=== PATIENT | female | born 1955 | race Caucasian/White ===

== ENCOUNTER → 2016-03-23 | Outpatient (CLI) | payer BC ==
[~2016-03-23] MED LIST: AKWA1OIN OP; ASPI325T PO; BACL10TA2 PO; DULO30CA PO; IMOD2TAB16 PO; LIDO1OIN2 TOP; MECL-68 PO; METF850T PO; MURO5OIN OU; NORT25CA2 PO; NORT50CA PO; PERC10TA17 PO; TOPA100T8 PO; TYLE325T5 PO; VALI5TAB PO; VITA200038 PO; VITMTA PO
[2016-03-23 15:07] LABS: ALBUMIN 3.5 GM/DL (3.2-5.2); ALBUMIN/GLOBULIN RATIO 0.92 (1.00-1.93); ALKALINE PHOSPHATASE 117 U/L (45-117); ALT/SGPT 18 U/L (12-78); ANION GAP 10 MEQ/L (8-16); AST/SGOT 14 U/L (15-37); BILIRUBIN,TOTAL 0.2 MG/DL (0.2-1.0); BLOOD UREA NITROGEN 22 MG/DL (7-18); CALCIUM LEVEL 9.2 MG/DL (8.5-10.1); CARBON DIOXIDE LEVEL 26 MEQ/L (21-32); CHLORIDE LEVEL 107 MEQ/L (98-107); CHOLESTEROL LEVEL 225 MG/DL (<200); GLOMERULAR FILTRATION RATE > 60.0 (>51); GLUCOSE, FASTING 96 MG/DL (70-105); POTASSIUM SERUM 4.1 MEQ/L (3.5-5.1); SODIUM LEVEL 143 MEQ/L (136-145); TOTAL PROTEIN 7.3 GM/DL (6.4-8.2); TRIGLYCERIDES LEVEL 165 MG/DL (<150)
== END | disposition home or self-care (01) ==
LOC: M LAB 13:50
PROVIDERS: ATTEND Nurse Practitioner Family
DX: I10 Essential (primary) hypertension (principal); E11.9 Type 2 diabetes mellitus without complications; E78.2 Mixed hyperlipidemia

== ENCOUNTER → 2016-06-02 | Outpatient (CLI) | payer BC ==
[2016-06-04 00:07] LABS: TOPIRAMATE LEVEL 9.7 ug/mL (2.0-25.0)
== END ==
LOC: M LAB 07:20
PROVIDERS: ATTEND Physician Assistant Medical
DX: G40.909 Epilepsy, unspecified, not intractable, without status epilepticus (principal)

== ENCOUNTER → 2016-06-24 | Outpatient (CLI) | payer BC ==
--- NOTE | 2016-06-25 03:23 | REP ---
Clinical: Right wrist pain. Technique: AP, lateral, bilateral oblique views of the right wrist. Findings: Age-related degenerative changes are appreciated. No acute fracture dislocation. No subcutaneous emphysema or radiodense foreign body. Impression: Age-related degenerative changes suggested. If the patient remains symptomatic, consider CT or MRI for further investigation. Signed by Mark Chicas MD 06/25/2016 03:15 A
[2016-06-26 00:07] LABS: TOPIRAMATE LEVEL 8.9 ug/mL (2.0-25.0)
== END ==
LOC: M LAB 07:50
PROVIDERS: ATTEND Physician Assistant Medical
DX: R51 Headache (principal); M25.531 Pain in right wrist; M19.031 Primary osteoarthritis, right wrist

== ENCOUNTER → 2016-07-22 | Outpatient (CLI) | payer BC ==
[2016-07-24 00:06] LABS: TOPIRAMATE LEVEL 7.9 ug/mL (2.0-25.0)
== END ==
LOC: M LAB 07:11
PROVIDERS: ATTEND Physician Assistant Medical
DX: R51 Headache (principal); M25.50 Pain in unspecified joint

== ENCOUNTER → 2016-07-27 | Outpatient (REF) | payer BC ==
[2016-07-27 11:48] LABS: ANION GAP 8 MEQ/L (8-16); BLOOD UREA NITROGEN 20 MG/DL (7-18); CALCIUM LEVEL 9.2 MG/DL (8.5-10.1); CARBON DIOXIDE LEVEL 24 MEQ/L (21-32); CHLORIDE LEVEL 111 MEQ/L (98-107); CREATININE FOR GFR 0.79 MG/DL (0.55-1.02); GLOMERULAR FILTRATION RATE > 60.0 (>51); GLUCOSE, FASTING 104 MG/DL (70-105); POTASSIUM SERUM 4.2 MEQ/L (3.5-5.1); SODIUM LEVEL 143 MEQ/L (136-145)
== END ==
LOC: M SFHCPLAZ 08:39
PROVIDERS: ATTEND Nurse Practitioner Family
DX: E11.9 Type 2 diabetes mellitus without complications (principal); E55.9 Vitamin D deficiency, unspecified

== ENCOUNTER → 2017-03-19 | Outpatient (REF) | payer BC ==
[2017-03-19 12:39] LABS: ALBUMIN 3.6 GM/DL (3.2-5.2); ALBUMIN/GLOBULIN RATIO 0.88 (1.00-1.93); ALKALINE PHOSPHATASE 110 U/L (45-117); ALT/SGPT 17 U/L (12-78); ANION GAP 9 MEQ/L (8-16); AST/SGOT 11 U/L (7-37); BILIRUBIN,TOTAL 0.2 MG/DL (0.2-1.0); BLOOD UREA NITROGEN 20 MG/DL (7-18); CALCIUM LEVEL 9.6 MG/DL (8.5-10.1); CARBON DIOXIDE LEVEL 27 MEQ/L (21-32); CHLORIDE LEVEL 107 MEQ/L (98-107); CHOLESTEROL LEVEL 220 MG/DL (<200); CREATININE FOR GFR 0.81 MG/DL (0.55-1.02); GLOMERULAR FILTRATION RATE > 60.0 (>51); GLUCOSE, FASTING 98 MG/DL (70-100); HDL CHOLESTEROL 83 MG/DL (>40); LDL CHOLESTEROL 117.4 MG/DL (<100); NON-HDL-C 137 MG/DL; POTASSIUM SERUM 4.2 MEQ/L (3.5-5.1); SODIUM LEVEL 143 MEQ/L (136-145); TOTAL PROTEIN 7.7 GM/DL (6.4-8.2); TRIGLYCERIDES LEVEL 98 MG/DL (<150)
[2017-03-19 12:48] LABS: TOTAL 25(OH) VITAMIN D 39.7 NG/ML (30.0-100.0)
[2017-03-19 13:05] LABS: ESTIMATED AVERAGE GLUCOSE 137 MG/DL (60-110); HEMOGLOBIN A1c 6.4 %
== END ==
LOC: M SFHCPLAZ 09:18
DX: E11.9 Type 2 diabetes mellitus without complications (principal); E78.2 Mixed hyperlipidemia; E55.9 Vitamin D deficiency, unspecified
CPT/HCPCS: 80053

== ENCOUNTER → 2017-05-28 | Outpatient (CLI) | payer BC ==
[2017-06-01 00:06] LABS: TOPIRAMATE LEVEL 8.7 ug/mL (2.0-25.0)
== END ==
LOC: M LAB 07:16
DX: R56.9 Unspecified convulsions (principal)

== ENCOUNTER → 2018-03-16 | Outpatient (REF) | payer OTHER ==
[~2018-03-16] MED LIST changes: -METF850T PO; +METF850T4 PO; -PERC10TA17 PO; +PERC10TA26 PO; +TOPA100T12 PO; -TOPA100T8 PO
[2018-03-16 12:43] LABS: MALB URINE SIEMENS 25.5 MG/L; MAU/CREAT RATIO 11.9 MCG/MG (0.0-30.0)
== END ==
LOC: M SFHCPLAZ 09:07
PROVIDERS: ATTEND Nurse Practitioner Family
DX: E11.9 Type 2 diabetes mellitus without complications (principal)

== ENCOUNTER 2018-05-04 22:12 | Emergency (ER) | payer OTHER ==
[~2018-05-04] VITALS: Ht 157.5 cm; Wt 258.0 kg
[2018-05-04 22:13] VITALS: BP 167/81
[2018-05-04] MEDS ORDERED: LIDOCAINE 2% MDV 20 ML VIAL SC ONE (23:30)
[2018-05-05] MEDS ORDERED: KEFL500C17 PO (00:24)
[2018-05-05] MEDS ORDERED: CEPHALEXIN 500 MG CAP PO ONE (00:30)
--- NOTE | 2018-05-05 02:29 | REP ---
Clinical: Trauma/fall with right knee pain. Technique: AP, lateral, bilateral oblique views of the right knee. Findings: Moderate tricompartmental osteoarthritic degenerative changes are appreciated. No acute fracture or dislocation. Lateral view demonstrates anterior swelling without obvious effusion. Impression: Moderate arthritic changes. No acute fracture or dislocation appreciated. Electronically Signed by Mark Chicas MD 05/05/2018 02:20 A
--- NOTE | 2018-05-05 02:31 | REP ---
Clinical: Trauma/fall. Technique: Frontal view of the pelvis with neutral and frog lateral views of the right hip. Findings: Moderate degenerative changes include enthesopathy along the pelvic rim. Hip joints demonstrate increased sclerosis with joint space narrowing and marginal spurring along the acetabulum (left greater than right). No obvious acute fracture or dislocation. Impression: Moderate arthritic degenerative changes. No acute fracture or dislocation identified. Electronically Signed by Mark Chicas MD 05/05/2018 02:22 A
== END 2018-05-05 00:43 | disposition home or self-care (01) ==
LOC: M ED 22:12
DX: S01.511A Laceration without foreign body of lip, initial encounter (principal); S70.01XA Contusion of right hip, initial encounter; S80.01XA Contusion of right knee, initial encounter; W19.XXXA Unspecified fall, initial encounter; Y92.099 Unspecified place in other non-institutional residence as the place of occurrence of the external cause; Y93.9 Activity, unspecified; Y99.9 Unspecified external cause status; M16.11 Unilateral primary osteoarthritis, right hip; M17.11 Unilateral primary osteoarthritis, right knee; I10 Essential (primary) hypertension; E11.9 Type 2 diabetes mellitus without complications; G89.29 Other chronic pain; Z87.891 Personal history of nicotine dependence; Z79.82 Long term (current) use of aspirin; Z79.899 Other long term (current) drug therapy; Z91.89 Other specified personal risk factors, not elsewhere classified; Z91.040 Latex allergy status

== ENCOUNTER → 2018-06-08 | Outpatient (CLI) | payer OTHER ==
[~2018-06-08] MED LIST changes: +ASPI-1 PO; -ASPI325T PO; -DULO30CA PO; +DULO30CA9 PO; +KEFL500C17 PO
[2018-06-08 14:27] LABS: BLOOD UREA NITROGEN 12 MG/DL (7-18); CARBON DIOXIDE LEVEL 26 MEQ/L (21-32); CHLORIDE LEVEL 108 MEQ/L (98-107); CREATININE FOR GFR 0.79 MG/DL (0.55-1.30); GLOMERULAR FILTRATION RATE > 60.0 (>45); GLUCOSE, FASTING 117 MG/DL (70-100); SODIUM LEVEL 140 MEQ/L (136-145)
[2018-06-08 14:30] LABS: HEMOGLOBIN A1c 6.2 %
== END ==
LOC: M LAB 12:53
PROVIDERS: ATTEND Nurse Practitioner Family
DX: E11.9 Type 2 diabetes mellitus without complications (principal); E55.9 Vitamin D deficiency, unspecified

== ENCOUNTER → 2018-09-15 | Outpatient (REF) | payer OTHER ==
[2018-09-15 13:05] LABS: BLOOD UREA NITROGEN 15 MG/DL (7-18); CALCIUM LEVEL 9.9 MG/DL (8.8-10.2); CARBON DIOXIDE LEVEL 27 MEQ/L (21-32); CHLORIDE LEVEL 109 MEQ/L (98-107); CREATININE FOR GFR 0.91 MG/DL (0.55-1.30); GLOMERULAR FILTRATION RATE > 60.0 (>45); GLUCOSE, FASTING 131 MG/DL (70-100); POTASSIUM SERUM 3.8 MEQ/L (3.5-5.1); SODIUM LEVEL 142 MEQ/L (136-145)
[2018-09-15 13:17] LABS: TOTAL 25(OH) VITAMIN D 40.2 NG/ML (30.0-100.0)
[2018-09-15 13:21] LABS: HEMOGLOBIN A1c 7.4 %
== END ==
LOC: M SFHCPLAZ 10:18
PROVIDERS: ATTEND Nurse Practitioner Family
DX: E11.9 Type 2 diabetes mellitus without complications (principal); E55.9 Vitamin D deficiency, unspecified

== ENCOUNTER → 2018-10-31 | Outpatient (CLI) | payer OTHER ==
--- NOTE | 2018-11-02 02:54 | ECWPNPC ---
PATIENT NAME: DEVIN AGUAYO : 1955 GENDER: FEMALE VISIT DATE: 10/31/2018 DISCHARGE DATE: 10/31/18 1154 VISIT LOCKED DATE TIME: PHYSICIAN: RABIA FERNANDEZ RESOURCE: RABIA FERNANDEZ DISCLAIMER : THIS IS A VISIT SUMMARY EXTRACTED FROM THE [facility] CHART. IT IS NOT A COPY OF THE [facility] PROGRESS NOTE. TITUS
== END ==
LOC: M PAIN 10:15
PROVIDERS: ATTEND Family Medicine
DX: M79.18 Myalgia, other site (principal); M79.7 Fibromyalgia; Z86.59 Personal history of other mental and behavioral disorders; R73.03 Prediabetes; E55.9 Vitamin D deficiency, unspecified; G47.33 Obstructive sleep apnea (adult) (pediatric); Z87.891 Personal history of nicotine dependence; Z88.8 Allergy status to other drugs, medicaments and biological substances; Z91.09 Other allergy status, other than to drugs and biological substances; E66.01 Morbid (severe) obesity due to excess calories; Z68.42 Body mass index [BMI] 45.0-49.9, adult; Z79.84 Long term (current) use of oral hypoglycemic drugs; Z79.82 Long term (current) use of aspirin; Z79.891 Long term (current) use of opiate analgesic; Z79.899 Other long term (current) drug therapy

== ENCOUNTER → 2018-11-15 | Outpatient (CLI) | payer OTHER ==
[~2018-11-15] MED LIST changes: +BUPIVACAINE HCL 0.25% 10 ML VIAL As Ordered ONE; +BUPIVACAINE HCL 0.25% 30 ML VIAL As Ordered ONE; +TRIAMCINOLONE ACETONIDE SUSP 40 MG/ML VIAL (J3301) As Ordered ONE
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
== END ==
LOC: M PAIN 14:15
PROVIDERS: ATTEND Anesthesiology
DX: M79.18 Myalgia, other site (principal); R56.9 Unspecified convulsions; F32.9 Major depressive disorder, single episode, unspecified; R73.03 Prediabetes; E55.9 Vitamin D deficiency, unspecified; E78.00 Pure hypercholesterolemia, unspecified; K57.90 Diverticulosis of intestine, part unspecified, without perforation or abscess without bleeding; I51.7 Cardiomegaly; R42 Dizziness and giddiness; G47.33 Obstructive sleep apnea (adult) (pediatric); M79.7 Fibromyalgia; Z62.810 Personal history of physical and sexual abuse in childhood; Z79.891 Long term (current) use of opiate analgesic; Z79.84 Long term (current) use of oral hypoglycemic drugs; Z79.899 Other long term (current) drug therapy; Z87.891 Personal history of nicotine dependence; Z88.8 Allergy status to other drugs, medicaments and biological substances; Z91.048 Other nonmedicinal substance allergy status
CPT/HCPCS: 20552; J3301

== ENCOUNTER → 2018-12-06 | Outpatient (CLI) | payer OTHER ==
[~2018-12-06] MED LIST changes: -BUPIVACAINE HCL 0.25% 10 ML VIAL As Ordered ONE; -BUPIVACAINE HCL 0.25% 30 ML VIAL As Ordered ONE; -TRIAMCINOLONE ACETONIDE SUSP 40 MG/ML VIAL (J3301) As Ordered ONE
== END ==
LOC: M PAIN 13:15
PROVIDERS: ATTEND Family Medicine
DX: M79.7 Fibromyalgia (principal); M79.18 Myalgia, other site; Z86.59 Personal history of other mental and behavioral disorders; E11.9 Type 2 diabetes mellitus without complications; E55.9 Vitamin D deficiency, unspecified; G47.33 Obstructive sleep apnea (adult) (pediatric); Z87.891 Personal history of nicotine dependence; Z88.8 Allergy status to other drugs, medicaments and biological substances; Z91.09 Other allergy status, other than to drugs and biological substances; E66.01 Morbid (severe) obesity due to excess calories; Z68.42 Body mass index [BMI] 45.0-49.9, adult; Z79.82 Long term (current) use of aspirin; Z79.84 Long term (current) use of oral hypoglycemic drugs; Z79.891 Long term (current) use of opiate analgesic; Z79.899 Other long term (current) drug therapy

== ENCOUNTER → 2019-01-09 | Outpatient (REF) | payer OTHER ==
[2019-01-09 15:00] LABS: FREE T4 0.75 NG/DL (0.76-1.46); THYROID STIMULATING HORMONE 2.46 uIU/ML (0.358-3.740)
[2019-01-09 16:53] LABS: HEMOGLOBIN A1c 6.7 %
== END ==
LOC: M SFHCPLAZ 11:35
PROVIDERS: ATTEND Physician Assistant Medical
DX: E11.9 Type 2 diabetes mellitus without complications (principal); Z68.42 Body mass index [BMI] 45.0-49.9, adult

== ENCOUNTER → 2019-01-17 | Outpatient (CLI) | payer OTHER ==
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
== END ==
LOC: M PAIN 11:30
PROVIDERS: ATTEND Family Medicine
DX: M79.7 Fibromyalgia (principal); G40.509 Epileptic seizures related to external causes, not intractable, without status epilepticus; Z86.59 Personal history of other mental and behavioral disorders; E11.9 Type 2 diabetes mellitus without complications; E55.9 Vitamin D deficiency, unspecified; G47.33 Obstructive sleep apnea (adult) (pediatric); I10 Essential (primary) hypertension; Z87.891 Personal history of nicotine dependence; Z88.8 Allergy status to other drugs, medicaments and biological substances; Z91.09 Other allergy status, other than to drugs and biological substances; E66.09 Other obesity due to excess calories; Z68.42 Body mass index [BMI] 45.0-49.9, adult; Z79.82 Long term (current) use of aspirin; Z79.84 Long term (current) use of oral hypoglycemic drugs; Z79.899 Other long term (current) drug therapy

== ENCOUNTER 2019-03-01 11:24 | Inpatient (IN) | payer OTHER ==
[~2019-03-01] VITALS: Ht 157.5 cm; Wt 126.2 kg
[2019-03-01] VITALS (10 sets, daily range): BP systolic 134–172; BP diastolic 61–90
[2019-03-01] MEDS ORDERED: GABA-843 PO (11:50)
[2019-03-01] MEDS ORDERED: BAYE500T2 PO (11:50)
[2019-03-01 12:12] LABS: BASO % 0.4 % (0.0-1.0); EOS # 0.3 10^3/uL (0.0-0.5); EOS % 3.6 % (0.0-3.0); HEMATOCRIT 35.7 % (36.0-47.0); HEMOGLOBIN 10.4 g/dl (12.0-15.5); LYMPH # 2.2 10^3/uL (1.5-5.0); LYMPH % 23.3 % (24.0-44.0); MEAN CORPUSCULAR HGB CONC 29.1 g/dl (32.0-36.5); MEAN CORPUSCULAR VOLUME 85.8 fl (80.0-96.0); MONO # 0.9 10^3/uL (0.0-0.8); MONO % 9.6 % (0.0-5.0); NEUTROPHILS # 5.9 10^3/uL (1.5-8.5); NEUTROPHILS % 62.4 % (36.0-66.0); PLATELET COUNT, AUTOMATED 342 10^3/uL (150-450); RED BLOOD COUNT 4.16 10^6/uL (4.00-5.40); WHITE BLOOD COUNT 9.4 10^3/uL (4.0-10.0)
--- NOTE | 2019-03-01 12:23 | REP ---
Portable chest x-ray: Single view. History: Chest pain. Comparison chest x-ray: January 08, 2010. Findings: EKG monitoring electrodes are seen. The heart is mildly prominent but unchanged. Pulmonary vasculature is not increased. Pleural angles are sharp. No infiltrate is seen. Thoracic aorta somewhat tortuous. There are degenerative changes in the thoracic spine. Impression: Mildly prominent heart. Otherwise no acute disease. Electronically Signed by Reji Saravia MD 03/01/2019 12:15 P
[2019-03-01 12:24] LABS: INR 0.96; PROTHROMBIN TIME 12.4 SECONDS (11.8-14.0)
[2019-03-01 12:38] LABS: ALBUMIN 3.2 GM/DL (3.2-5.2); ALT/SGPT 20 U/L (12-78); BILIRUBIN,DIRECT < 0.1 MG/DL (0.0-0.2); BILIRUBIN,TOTAL 0.1 MG/DL (0.2-1.0); CK-MB VALUE MASS < 1.0 NG/ML (<3.6); CPK CREATINE PHOSPHOKINASE 82 U/L (26-192); LIPASE 119 U/L (73-393); MB/CK RELATIVE INDEX 1.22 (< OR =4); TOTAL PROTEIN 7.1 GM/DL (6.4-8.2); TROPONIN I < 0.02 NG/ML (< 0.10)
[2019-03-01] MEDS ORDERED: ISOVUE-370 76% 100ML VIAL (Q9967) As Ordered ONE (13:04)
[2019-03-01 13:09] LABS: FREE T4 0.81 NG/DL (0.76-1.46); MAGNESIUM LEVEL 2.2 MG/DL (1.8-2.4); PHOSPHORUS LEVEL 3.4 MG/DL (2.5-4.9)
--- NOTE | 2019-03-01 14:25 | REP ---
CT PULMONARY ANGIOGRAM: With IV contrast. HISTORY: Chest pain shortness of breath. COMPARISON STUDIES: Comparison chest CT study January 08, 2010. CONTRAST DOSE: 75 mL of Isovue [address] TECHNIQUE: Helical scanning is acquired and overlapping 1.5 mm and contiguous 3 mm axial images are reformatted. In addition, maximum intensity projection and multiplanar re-formation images are generated in sagittal and coronal imaging projections. CT PULMONARY ANGIOGRAPHIC FINDINGS: There is good opacification of the pulmonary arterial tree. There is no CT evidence of pulmonary embolism. No thoracic aortic aneurysm or dissection is appreciated. No hilar or mediastinal mass lesion is seen. There is a stable oval shaped fluid density nodule in the mediastinal fat just anterior to the superior vena cava consistent with pericardial cyst. This measures 2.3 x 1.6 cm. Previously its dimensions by my measurements were 2.3 x 1.4 cm. It is not felt to be significantly changed. No other mediastinal abnormality is observed. No pleural or pericardial effusion is seen. The lung bowling are clear. There is evidence of mild fatty infiltration of the liver diffusely. No adrenal abnormality is observed. There is a stable celiac axis lymph node measuring 11 x 16 mm. Previously, this was 9 x 15 mm. IMPRESSION: No CT evidence of pulmonary embolus. Stable pericardial cyst in the right mediastinum 2.3 cm in greatest diameter. Otherwise no acute disease. Electronically Signed by Reji Saravia MD 03/01/2019 04:42 P
[2019-03-01] MEDS ORDERED: LABETALOL HCL 100 MG/20 ML VIAL IV STA (16:08)
[2019-03-01] MEDS ORDERED: niCARdipine IV 40 MG in IV 1 EA IV SCH (16:30)
--- NOTE | 2019-03-01 16:40 | HPEPDOC ---
General Date of Admission Date of Service: Mar 01, 2019 Attending Physician: DESMOND RAZO MD Chief Complaint chest pain Source: Patient Exam Limitations: No limitations History of Present Illness 63 year old female PMHx significant for DM2, fibromyalgia, morbid obesity, depression, chronic back pain presents with chest pain. States had an episode of "heart racing" on February 25, is not exactly clear what happened but remembers "feeling my heart race and then it stopped". Since then has had episodes of chest pain, midsternal, radiating into her back and into her neck. Associated with shortness of breath and diaphoresis. Symptoms last for a few minutes, takes asa when they occur, and spontaneously resolve. Called her PCP and was advised to come to the ED for evaluation. Presents here with BP 190/115, currently 230/94, started on Cardene drip in ED, MICU admission for further management. Patient is currently chest pain free. Home Medications Scheduled Aspirin/Caffeine (Junior Back-Body 500-32.5 mg) 1 Each Tablet, 2 EACH PO QAM, (Reported) Cholecalciferol (Vitamin D3) (Vitamin D3) 2,000 Unit Tab, 5,000 UNIT PO DAILY, (Reported) Duloxetine Hcl (Duloxetine HCl) 30 Mg Cap, 30 MG PO BID, (Reported) Gabapentin (Gabapentin) 300 Mg Capsule, 300 MG PO BID, (Reported) Metformin HCl (Metformin HCl) 850 Mg Tab, 850 MG PO BID, (Reported) Mineral Oil/Petrolatum,White (Artificial Tears Eye Ointment) 1 Oin Oin, 1 OIN OP QHS, (Reported) Multivitamins (Thera M Plus Tablet) 1 Tab Tab, 1 TAB PO DAILY, (Reported) Nortriptyline HCl (Nortriptyline HCl) 25 Mg Cap, 25 MG PO QPM, (Reported) Sodium Chloride ([place]antana-128) 5 % Oin, 1 DROP OU BID, (Reported) Topiramate (Topamax) 100 Mg Tab, 100 MG PO QAM, (Reported) Topiramate (Topamax) 100 Mg Tab, 150 MG PO QPM, (Reported) Scheduled PRN Acetaminophen (Tylenol) 325 Mg Tab, 650 MG PO Q4HP PRN for PAIN, (Reported) Baclofen (Baclofen) 10 Mg Tab, 10 MG PO TID PRN for SPASMS, (Reported) Diazepam (Valium) 5 Mg Tab, 2.5 MG PO BIDP PRN for ANXIETY/AGITATION, (Reported) Lidocaine (Lidocaine 5% Ointment) 1 Dose/35.44 Gm Oint, 1 DOSE TOP Q12H PRN for PAIN, (Reported) APPLIED TO NECK Loperamide Hcl (Imodium A-D) 2 Mg Tab, 2 MG PO BID PRN for DIARRHEA, (Reported) Allergies Coded Allergies: TAPE (Unverified Allergy, Intermediate, RASH, 03/01/19) latex (Verified Allergy, Unknown, 03/01/19) nicotine (Verified Allergy, Unknown, 03/01/19) soap (Verified Allergy, Unknown, 03/01/19) Past Medical History Medical History DM2, fibromyalgia, morbid obesity, depression, chronic back pain Surgical History b/l knee replacements Family History Significant Family History: No pertinent family hx Social History * Smoker: quit greater than 1 year Alcohol: Denies Drugs: denies A-FIB/CHADSVASC A-FIB History Current/History of A-Fib/PAF?: No Current PO Anticoag Therapy: No Review of Systems Constitutional: Reports: Weakness, Fatigue Cardiovascular: Reports: Chest Pain (resolved) Vital Signs Vital Signs Date Time Temp Pulse Resp B/P (MAP) Pulse Ox O2 Delivery O2 Flow Rate FiO2 03/01/19 16:13 198/108 (138) 03/01/19 12:39 99 03/01/19 12:24 98 03/01/19 11:50 Room Air 03/01/19 11:25 97.2 17 Laboratory Data Labs 24H Laboratory Tests 2 03/01/19 11:59: Prothrombin Time 12.4, Prothromb Time International Ratio 0.96 03/01/19 12:00: Immature Granulocyte % (Auto) 0.7, Neutrophils (%) (Auto) 62.4, Lymphocytes (%) (Auto) 23.3L, Monocytes (%) (Auto) 9.6H, Eosinophils (%) (Auto) 3.6H, Basophils (%) (Auto) 0.4, Neutrophils # (Auto) 5.9, Lymphocytes # (Auto) 2.2, Monocytes # (Auto) 0.9H, Eosinophils # (Auto) 0.3, Basophils # (Auto) 0.0, Nucleated Red Blood Cells % (auto) 0.0, Phosphorus Level 3.4, Magnesium Level 2.2, Total Bilirubin 0.1L, Direct Bilirubin < 0.1, Aspartate Amino Transf (AST/SGOT) 17, Alanine Aminotransferase (ALT/SGPT) 20, Alkaline Phosphatase 108, Total Creatine Kinase 82, Creatine Kinase MB < 1.0, Creatine Kinase MB Relative Index 1.22, Troponin I < 0.02, Total Protein 7.1, Albumin 3.2, Albumin/Globulin Ratio 0.82L, Lipase 119, Thyroid Stimulating Hormone (TSH) 2.970, Free Thyroxine 0.81 03/01/19 12:34: POC Glucose (Misc Panel) 119H, POC Sodium (Misc Panel) 140, POC Potassium (Misc Panel) 4.4, POC Chloride (Misc Panel) 107, POC Total CO2 (Misc Panel) 25.0, POC Blood Urea Nitrogen (Misc Panel 22, POC Ionized Calcium (Misc Panel) 5.0, POC Creatinine (Misc Panel) 0.8, POC Hematocrit (Misc Panel) 32.0L CBC/BMP Laboratory Tests 03/01/19 12:00 Assessment/Plan 1. hypertensive urgency - started on Cardene drip in ED. - admit to MICU. - BP checks, titrate to goal BP. - cardiac ECHO, serial enzymes. - consult to cardiology. - no prior history of HTN per patient. 2. chest pain - serial cardiac markers, telemetry monitoring. - cardiac echo, asa. - consult to cardiology. 3. DM2 - FSBS, SSI coverage. Plan / VTE VTE Prophylaxis Ordered?: Yes DESMOND RAZO MD Mar 01, 2019 16:40
[2019-03-01] MEDS ORDERED: MOM 30ML SUSPENSION UDC PO PRN (16:45)
[2019-03-01] MEDS ORDERED: DEXTROSE 50% 50 ML SYRINGE IV PRN (16:45)
[2019-03-01] MEDS ORDERED: GLUCOSE 4 GM CHEW TABLET PO PRN (16:45)
[2019-03-01] MEDS ORDERED: GLUCAGON FOR INJ 1 MG VIAL (J1610) SC PRN (16:45)
[2019-03-01] MEDS ORDERED: VITA500079 PO (17:01)
[2019-03-01] MEDS ORDERED: FLON1SPR NARES (17:01)
[2019-03-01] MEDS ORDERED: PATIENT COMMENT (17:01)
[2019-03-01] MEDS ORDERED: SM A PO (17:01)
[2019-03-01] MEDS ORDERED: BACL10TA2 PO (17:01)
[2019-03-01] MEDS ORDERED: NORT25CA2 PO (17:01)
[2019-03-01] MEDS ORDERED: OXYC10TA3 PO (17:03)
[2019-03-01] MEDS: HumaLOG INSULIN (NovoLOG) PER UNIT SC SCH (17:30)
[2019-03-01] MEDS: METOPROLOL TART 25 MG TABLET PO SCH (18:10)
--- NOTE | 2019-03-01 18:15 | ECGEPIP ---
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
[2019-03-01 18:37] LABS: CK-MB VALUE MASS < 1.0 NG/ML (<3.6); CPK CREATINE PHOSPHOKINASE 72 U/L (26-192); MB/CK RELATIVE INDEX 1.39 (< OR =4); TROPONIN I < 0.02 NG/ML (< 0.10)
[2019-03-01] MEDS: DOCUSATE SODIUM 100 MG CAP PO SCH (20:40)
[2019-03-01] MEDS: ASPIRIN 325 MG TAB PO PRN (20:57)
--- NOTE | 2019-03-01 21:52 | ECHO ---
DATE OF PROCEDURE: 03/01/2019 REFERRING PHYSICIAN: Emilee Smith MD INDICATION: Chest pain, unspecified. HEIGHT: 158 cm WEIGHT: 124 kg 2D MEASUREMENTS: Left atrium: 3.4 cm Proximal ascending aorta: 3.1 cm Ventricular septum: 1.15 cm Posterior wall: 1.30 cm Left ventricle diastole: 3.9 cm Aortic root: 3.2 cm Inferior vena cava: 1.2 cm DOPPLER MEASUREMENTS: No aortic regurgitation. No mitral regurgitation. Trace tricuspid regurgitation. No pulmonic regurgitation. Aortic valve velocity: 140 cm/s LVOT velocity: 75.0 cm/s Pulmonary artery acceleration time: 124 ms MITRAL ANNULAR TISSUE DOPPLER: E prime septal: 5.9 cm/s E prime lateral: 7.4 cm/s DESCRIPTION: Rhythm was sinus tachycardia. Image quality was fair. This was a 2D, M-mode, color flow Doppler and pulse wave Doppler examination that included mitral annular tissue Doppler. CONCLUSIONS: 1. Borderline concentric left ventricle hypertrophy. Normal regional LV wall motion and wall thickening. Normal left ventricle (LV) systolic function. Grade 1 LV diastolic dysfunction with complete fusion of the early rapid filling phase with the atrial filling phase at 104 beats per minute. Grade 1 LV diastolic dysfunction. 2. No pericardial effusion. 3. Otherwise normal appearing echocardiogram Doppler findings.
[2019-03-01] MEDS ORDERED: diazePAM 5 MG TAB PO PRN (23:00)
[2019-03-01] MEDS ORDERED: BACLOFEN 10 MG TAB PO PRN (23:00)
[2019-03-01] MEDS ORDERED: PILL CUTTER 1 EACH XX PRN (23:15)
[2019-03-01] MEDS: BACLOFEN 10 MG TAB PO SCH (23:41)
[2019-03-01] MEDS: TOPIRAMATE (TopAMAX) 100 MG TAB PO SCH (23:41)
[2019-03-01] MEDS: GABAPENTIN 300 MG CAP PO SCH (23:41)
[2019-03-02] VITALS (7 sets, daily range): BP systolic 132–193; BP diastolic 67–100
[2019-03-02] MEDS: ASPIRIN 325 MG TAB PO PRN (03:56)
[2019-03-02 07:33] LABS: ALBUMIN 3.1 GM/DL (3.2-5.2); ALT/SGPT 20 U/L (12-78); BILIRUBIN,TOTAL 0.4 MG/DL (0.2-1.0); BLOOD UREA NITROGEN 15 MG/DL (7-18); CALCIUM LEVEL 9.1 MG/DL (8.8-10.2); CARBON DIOXIDE LEVEL 22 MEQ/L (21-32); CHLORIDE LEVEL 109 MEQ/L (98-107); CREATININE FOR GFR 0.82 MG/DL (0.55-1.30); GLOMERULAR FILTRATION RATE > 60.0 (>45); GLUCOSE, FASTING 143 MG/DL (70-100); SODIUM LEVEL 139 MEQ/L (136-145); TOTAL PROTEIN 7.4 GM/DL (6.4-8.2)
[2019-03-02] MEDS: ASPIRIN 81 MG ENTERIC TAB PO SCH (08:11)
[2019-03-02] MEDS: GABAPENTIN 300 MG CAP PO SCH ×2 (08:11→20:48)
[2019-03-02] MEDS: METOPROLOL TART 25 MG TABLET PO SCH ×2 (08:11→20:48)
[2019-03-02] MEDS: HumaLOG INSULIN (NovoLOG) PER UNIT SC SCH ×3 (08:12→17:31)
[2019-03-02] MEDS: TOPIRAMATE (TopAMAX) 100 MG TAB PO SCH ×2 (08:12→20:48)
[2019-03-02] MEDS: BACLOFEN 10 MG TAB PO SCH ×2 (08:12→20:48)
[2019-03-02] MEDS: DOCUSATE SODIUM 100 MG CAP PO SCH ×2 (08:12→20:48)
[2019-03-02] MEDS: ENOXAPARIN 40 MG/0.4 ML SYRINGE (J1650) SC SCH (09:00)
--- NOTE | 2019-03-02 09:27 | IPNPDOC ---
Subjective Date Seen The patient was seen on 03/02/19. Subjective Chief Complaint/HPI chest pain, hypertensive urgency Events since last encounter Admitted for concerns about recent CP, palpitations. States on 02/25/2019 developed sudden onset chest and what felt like Vtach. States felt an out of body experience and something telling her to bear down and thump on chest. States came to suddenly and felt fine. Has been experiencing fleeting intermittent CP and heat palp since then. She called PCP office and was directed to ED which found patient to have elevated BP in 230 range systolic. BP came down on Cardene drip which has been tapered off. Current orders include Metoprolol 25 mg po bid. BP this am 170s systolic. Pulmonary: Denies: Dyspnea, Cough Cardiovascular: Denies: Chest Pain, Palpitations, Orthopnea, Paroxysmal Noc. Dyspnea, Lt Headedness Psych: Reports: Mood Normal; Denies: Depression, Memory Issues Objective Physical Examination General Exam: Positive: Alert, No Acute Distress Chest Exam: Positive: Clear to auscultation, Normal air movement Heart Exam: Positive: Rate Normal, Regular Rhythm, Normal S1, Normal S2; Negative: Murmurs, Rubs Telemetry: Positive: No significant arrhythmia Psych Exam: Positive: Mental status NL, Mood NL, Oriented x 3 Assessment /Plan Problems (1) Hypertensive urgency Status: Acute Problem Text: continue metoprolol. Added on Lisinopril 10 mg po daily as patient is diabetic and would benefit from PATRICIO. renal function is table. ECHO: CONCLUSIONS: 1. Borderline concentric left ventricle hypertrophy. Normal regional LV wall motion and wall thickening. Normal left ventricle (LV) systolic function. Grade 1 LV diastolic dysfunction with complete fusion of the early rapid filling phase with the atrial filling phase at 104 beats per minute. Grade 1 LV diastolic dysfunction. 2. No pericardial effusion. 3. Otherwise normal appearing echocardiogram Doppler findings. DD: Gage Melendez MD [facility] 03/01/192123 DT: URSULA 03/01/192142 DS: ANGELA 03/01/192320 <Electronically signed by aGge Melendez MD> 03/01/192320 DS2: (2) Chest pain Status: Acute Response to Treatment: Improving Problem Text: monitor on telemetry 24-48 hrs. Will need close fu with stress testing on DC (3) Depression Status: Chronic Response to Treatment: Stable (4) Diabetes mellitus Status: Chronic Response to Treatment: Stable (5) Chronic pain (6) Dissociative disorder Status: Chronic Response to Treatment: Stable Plan/VTE VTE Prophylaxis Ordered?: Yes VS, I&O, 24H, Fishbone Vital Signs/I&O Vital Signs Date Time Temp Pulse Resp B/P (MAP) Pulse Ox O2 Delivery O2 Flow Rate FiO2 03/02/19 08:11 80 176/90 03/02/19 07:47 98.0 20 95 Room Air I&O- Last 24 Hours up to 6 AM 03/02/19 06:00 Intake Total 740 ml Output Total 200 ml Balance 540 ml Laboratory Data 24H LABS Laboratory Tests 2 03/01/19 11:59: Prothrombin Time 12.4, Prothromb Time International Ratio 0.96 03/01/19 12:00: Immature Granulocyte % (Auto) 0.7, Neutrophils (%) (Auto) 62.4, Lymphocytes (%) (Auto) 23.3L, Monocytes (%) (Auto) 9.6H, Eosinophils (%) (Auto) 3.6H, Basophils (%) (Auto) 0.4, Neutrophils # (Auto) 5.9, Lymphocytes # (Auto) 2.2, Monocytes # (Auto) 0.9H, Eosinophils # (Auto) 0.3, Basophils # (Auto) 0.0, Nucleated Red Blood Cells % (auto) 0.0, Phosphorus Level 3.4, Magnesium Level 2.2, Total Bilirubin 0.1L, Direct Bilirubin < 0.1, Aspartate Amino Transf (AST/SGOT) 17, Alanine Aminotransferase (ALT/SGPT) 20, Alkaline Phosphatase 108, Total Creatine Kinase 82, Creatine Kinase MB < 1.0, Creatine Kinase MB Relative Index 1.22, Troponin I < 0.02, Total Protein 7.1, Albumin 3.2, Albumin/Globulin Ratio 0.82L, Lipase 119, Thyroid Stimulating Hormone (TSH) 2.970, Free Thyroxine 0.81 03/01/19 12:34: POC Glucose (Misc Panel) 119H, POC Sodium (Misc Panel) 140, POC Potassium (Misc Panel) 4.4, POC Chloride (Misc Panel) 107, POC Total CO2 (Misc Panel) 25.0, POC Blood Urea Nitrogen (Misc Panel 22, POC Ionized Calcium (Misc Panel) 5.0, POC Creatinine (Misc Panel) 0.8, POC Hematocrit (Misc Panel) 32.0L 03/01/19 17:58: Total Creatine Kinase 72, Creatine Kinase MB < 1.0, Creatine Kinase MB Relative Index 1.39, Troponin I < 0.02 03/01/19 18:05: Bedside Glucose (Misc Panel) 143H 03/02/19 06:50: Anion Gap 8, Glomerular Filtration Rate > 60.0, Calcium Level 9.1, Total Bilirubin 0.4#, Aspartate Amino Transf (AST/SGOT) 22, Alanine Aminotransferase (ALT/SGPT) 20, Alkaline Phosphatase 103, Total Protein 7.4, Albumin 3.1L, Albumin/Globulin Ratio 0.72L CBC/BMP Laboratory Tests 03/01/19 12:00 03/02/19 06:50 Nisreen Faith [employer] Mar 02, 2019 09:27
[2019-03-02] MEDS: lisinopriL 10 MG TAB PO SCH (10:01)
[2019-03-02] MEDS ORDERED: ASPIRIN 325 MG TAB PO PRN (15:30)
[2019-03-02] MEDS: PERCOCET 5MG/325MG TAB PO PRN (15:41)
[2019-03-03 04:00] VITALS: BP 150/90
[2019-03-03 05:07] LABS: BASO % 0.4 % (0.0-1.0); EOS # 0.4 10^3/uL (0.0-0.5); HEMATOCRIT 35.5 % (36.0-47.0); HEMOGLOBIN 10.5 g/dl (12.0-15.5); LYMPH # 1.9 10^3/uL (1.5-5.0); LYMPH % 18.8 % (24.0-44.0); MEAN CORPUSCULAR HEMOGLOBIN 25.4 pg (27.0-33.0); MEAN CORPUSCULAR HGB CONC 29.6 g/dl (32.0-36.5); MONO % 9.9 % (0.0-5.0); NEUTROPHILS # 6.7 10^3/uL (1.5-8.5); NEUTROPHILS % 66.5 % (36.0-66.0); PLATELET COUNT, AUTOMATED 345 10^3/uL (150-450); RED BLOOD COUNT 4.13 10^6/uL (4.00-5.40); WHITE BLOOD COUNT 10.1 10^3/uL (4.0-10.0)
[2019-03-03 05:36] LABS: ALBUMIN 3.2 GM/DL (3.2-5.2); ALT/SGPT 22 U/L (12-78); BILIRUBIN,TOTAL 0.3 MG/DL (0.2-1.0); BLOOD UREA NITROGEN 21 MG/DL (7-18); CALCIUM LEVEL 8.9 MG/DL (8.8-10.2); CARBON DIOXIDE LEVEL 24 MEQ/L (21-32); CHLORIDE LEVEL 109 MEQ/L (98-107); CREATININE FOR GFR 0.91 MG/DL (0.55-1.30); GLOMERULAR FILTRATION RATE > 60.0 (>45); GLUCOSE, FASTING 137 MG/DL (70-100); SODIUM LEVEL 140 MEQ/L (136-145); TOTAL PROTEIN 7.5 GM/DL (6.4-8.2)
[2019-03-03 08:00] VITALS: BP 167/87
[2019-03-03] MEDS: HumaLOG INSULIN (NovoLOG) PER UNIT SC SCH ×3 (08:15→17:31)
[2019-03-03] MEDS: GABAPENTIN 300 MG CAP PO SCH ×2 (08:15→21:22)
[2019-03-03] MEDS: lisinopriL 10 MG TAB PO SCH (08:16)
[2019-03-03] MEDS: BACLOFEN 10 MG TAB PO SCH ×2 (08:16→21:22)
[2019-03-03] MEDS: ASPIRIN 81 MG ENTERIC TAB PO SCH (08:16)
[2019-03-03] MEDS: METOPROLOL TART 25 MG TABLET PO SCH ×2 (08:16→21:22)
[2019-03-03] MEDS: TOPIRAMATE (TopAMAX) 100 MG TAB PO SCH ×2 (08:16→21:23)
[2019-03-03] MEDS: DOCUSATE SODIUM 100 MG CAP PO SCH ×2 (08:17→21:00)
[2019-03-03] MEDS: ENOXAPARIN 40 MG/0.4 ML SYRINGE (J1650) SC SCH (08:17)
--- NOTE | 2019-03-03 08:29 | IPNPDOC ---
Subjective Date Seen The patient was seen on 03/03/19. Subjective Chief Complaint/HPI No chest pain,palpitations. Tolerating Lisinopril and Lopressor without side effects. Constitutional: Denies: Chills, Fever Pulmonary: Denies: Dyspnea, Cough Cardiovascular: Denies: Chest Pain, Palpitations Gastrointestinal: Denies: Nausea, Vomiting, Abdominal Pain, Diarrhea, Constipation Objective Physical Examination General Exam: Positive: Alert, No Acute Distress Chest Exam: Positive: Clear to auscultation, Normal air movement; Negative: Rales, Rhonchi, Wheezing Heart Exam: Positive: Rate Normal, Regular Rhythm, Normal S1, Normal S2; Negative: Murmurs, Rubs Telemetry: Positive: No significant arrhythmia, Sinus Psych Exam: Positive: Mental status NL, Mood NL, Oriented x 3 Assessment /Plan Problems (1) Hypertensive urgency Status: Acute Problem Text: 03/04 - BP remains variable but overall improved. Increase Lisino pril today and cont Lopressor. Get Renal Artery US to r/o renal a. stenosis Will need f/u with cardiology due to recent complaints of intermittent CP leading up to this admission as well as an event that she describes where her HR was racing (? Vtach vs other) No events on tele and cardiac enzymes normal, but will need outpatient stress test. . ECHO: CONCLUSIONS: 1. Borderline concentric left ventricle hypertrophy. Normal regional LV wall motion and wall thickening. Normal left ventricle (LV) systolic function. Grade 1 LV diastolic dysfunction with complete fusion of the early rapid filling phase with the atrial filling phase at 104 beats per minute. Grade 1 LV diastolic dysfunction. 2. No pericardial effusion. 3. Otherwise normal appearing echocardiogram Doppler findings. DD: Gage Melendez MD [facility] 03/01/192123 DT: URSULA 03/01/192142 DS: ANGELA 03/01/192320 <Electronically signed by Gage Melendez MD> 03/01/192320 DS2: (2) Chest pain Status: Acute Response to Treatment: Improving Problem Text: monitor on telemetry 24-48 hrs. Will need close fu with stress testing on DC (3) Depression Status: Chronic Response to Treatment: Stable (4) Diabetes mellitus Status: Chronic Response to Treatment: Stable (5) Chronic pain (6) Dissociative disorder Status: Chronic Response to Treatment: Stable Plan/VTE VTE Prophylaxis Ordered?: Yes VS, I&O, 24H, Fishbone Vital Signs/I&O Vital Signs Date Time Temp Pulse Resp B/P (MAP) Pulse Ox O2 Delivery O2 Flow Rate FiO2 03/03/19 04:00 97.8 105 20 150/90 (110) 97 Room Air I&O- Last 24 Hours up to 6 AM 03/03/19 06:00 Intake Total 3130 ml Output Total 2750 ml Balance 380 ml Laboratory Data 24H LABS Laboratory Tests 2 03/02/19 11:34: Bedside Glucose (Misc Panel) 137H 03/02/19 17:16: Bedside Glucose (Misc Panel) 136H 03/02/19 19:44: Bedside Glucose (Misc Panel) 142H 03/03/19 04:44: Immature Granulocyte % (Auto) 0.4, Neutrophils (%) (Auto) 66.5H, Lymphocytes (%) (Auto) 18.8L, Monocytes (%) (Auto) 9.9H, Eosinophils (%) (Auto) 4.0H, Basophils (%) (Auto) 0.4, Neutrophils # (Auto) 6.7, Lymphocytes # (Auto) 1.9, Monocytes # (Auto) 1.0H, Eosinophils # (Auto) 0.4, Basophils # (Auto) 0.0, Nucleated Red Blood Cells % (auto) 0.0, Anion Gap 7L, Glomerular Filtration Rate > 60.0, Calcium Level 8.9, Total Bilirubin 0.3, Aspartate Amino Transf (AST/SGOT) 22, Alanine Aminotransferase (ALT/SGPT) 22, Alkaline Phosphatase 101, Total Protein 7.5, Albumin 3.2, Albumin/Globulin Ratio 0.74L CBC/BMP Laboratory Tests 03/03/19 04:44 ORION RAMOS PA-C Mar 03, 2019 08:29
[2019-03-03] MEDS ORDERED: lisinopriL 10 MG TAB PO ONE (09:15)
[2019-03-03] MEDS: PERCOCET 5MG/325MG TAB PO PRN ×2 (10:31→23:48)
[2019-03-03 12:00] VITALS: BP 155/75
[2019-03-03 16:00] VITALS: BP 130/83
[2019-03-03 20:00] VITALS: BP 120/72
[2019-03-04] VITALS: BP 140/80
[2019-03-04 04:00] VITALS: BP 150/90
[2019-03-04 05:35] LABS: BLOOD UREA NITROGEN 18 MG/DL (7-18); CALCIUM LEVEL 8.9 MG/DL (8.8-10.2); CARBON DIOXIDE LEVEL 24 MEQ/L (21-32); CHLORIDE LEVEL 109 MEQ/L (98-107); CREATININE FOR GFR 0.81 MG/DL (0.55-1.30); GLOMERULAR FILTRATION RATE > 60.0 (>45); GLUCOSE, FASTING 150 MG/DL (70-100); POTASSIUM SERUM 3.9 MEQ/L (3.5-5.1); SODIUM LEVEL 140 MEQ/L (136-145)
[2019-03-04] MEDS: DOCUSATE SODIUM 100 MG CAP PO SCH (07:29)
[2019-03-04] MEDS: ENOXAPARIN 40 MG/0.4 ML SYRINGE (J1650) SC SCH (07:29)
[2019-03-04 08:00] VITALS: BP 144/82
[2019-03-04] MEDS ORDERED: lisinopriL 20 MG TAB PO SCH (09:00)
[2019-03-04] MEDS: HumaLOG INSULIN (NovoLOG) PER UNIT SC SCH ×2 (09:42→12:47)
[2019-03-04] MEDS: GABAPENTIN 300 MG CAP PO SCH (11:16)
[2019-03-04] MEDS: METOPROLOL TART 25 MG TABLET PO SCH (11:16)
[2019-03-04 11:17] VITALS: BP 144/82
[2019-03-04] MEDS: BACLOFEN 10 MG TAB PO SCH (11:17)
[2019-03-04] MEDS: ASPIRIN 81 MG ENTERIC TAB PO SCH (11:17)
[2019-03-04] MEDS: TOPIRAMATE (TopAMAX) 100 MG TAB PO SCH (11:17)
[2019-03-04 12:00] VITALS: BP 138/94
--- NOTE | 2019-03-04 13:09 | DS.PDOC ---
Discharge Summary General Date of Admission Mar 01, 2019 at 16:40 Discharge Summary PROCEDURES PERFORMED DURING STAY: [None]. ADMITTING DIAGNOSES: 1. . DISCHARGE DIAGNOSES: 1. . COMPLICATIONS/CHIEF COMPLAINT: Hypertensive Urgency. HISTORY OF PRESENT ILLNESS: . HOSPITAL COURSE: . DISCHARGE MEDICATIONS: Please see below. ALLERGIES: Please see below. PHYSICAL EXAMINATION ON DISCHARGE: VITAL SIGNS: Please see below. GENERAL: HEENT: NECK: CARDIOVASCULAR EXAMINATION: RESPIRATORY EXAMINATION: ABDOMINAL EXAMINATION: EXTREMITIES: SKIN: NEUROLOGICAL EXAMINATION: PSYCHIATRIC EXAMINATION: LABORATORY DATA: Please see below. IMAGING: PROGNOSIS: ACTIVITY: [As tolerated]. DIET: DISCHARGE PLAN: DISPOSITION: . DISCHARGE INSTRUCTIONS: 1. . ITEMS TO FOLLOWUP ON ON OUTPATIENT: 1. . DISCHARGE CONDITION: [Stable]. TIME SPENT ON DISCHARGE: Greater than minutes. Vital Signs/I&Os Vital Signs Date Time Temp Pulse Resp B/P (MAP) Pulse Ox O2 Delivery O2 Flow Rate FiO2 03/04/19 12:00 98.3 86 20 138/94 (109) 98 Room Air I&O- Last 24 Hours up to 6 AM 03/04/19 06:00 Intake Total 1800 ml Output Total 2450 ml Balance -650 ml Laboratory Data Labs 24H Laboratory Tests 2 03/03/19 17:11: Bedside Glucose (Misc Panel) 157H 03/03/19 20:46: Bedside Glucose (Misc Panel) 144H 03/04/19 04:38: Anion Gap 7L, Glomerular Filtration Rate > 60.0, Calcium Level 8.9 03/04/19 11:55: Bedside Glucose (Misc Panel) 146H CBC/BMP Laboratory Tests 03/04/19 04:38 FSBS Laboratory Tests Test 03/03/19 17:11 03/03/19 20:46 03/04/19 11:55 Range/Units Bedside Glucose (Misc Panel) 157 144 146 80-115 MG/DL Discharge Medications Scheduled Aspirin/Caffeine (Junior Back-Body 500-32.5 mg) 1 Each Tablet, 2 TAB PO BID, (Reported) Baclofen (Baclofen) 10 Mg Tab, 10 MG PO BID, (Reported) Cholecalciferol (Vitamin D3) (Vitamin D3) 5,000 Unit Tab.rapdis, 5,000 UNIT PO QHS, (Reported) Duloxetine Hcl (Duloxetine HCl) 30 Mg Cap, 30 MG PO BID, (Reported) Fluticasone Propionate (Flonase Allergy Relief) 9.9 Ml [place].susp, 1 SPRAY NARES DAILY, (Reported) Gabapentin (Gabapentin) 300 Mg Capsule, 300 MG PO BID, (Reported) Loperamide HCl (Anti-Diarrheal) 2 Mg Capsule, 2 MG PO 2XW, (Reported) TUES AND THURS Metformin HCl (Metformin HCl) 850 Mg Tab, 850 MG PO BID, (Reported) Multivitamins (Thera M Plus Tablet) 1 Tab Tab, 1 TAB PO DAILY, (Reported) Nortriptyline HCl (Nortriptyline HCl) 25 Mg Cap, 50 MG PO QHS, (Reported) Nortriptyline HCl (Nortriptyline HCl) 25 Mg Capsule, 25 MG PO DAILY, (Reported) Topiramate (Topamax) 100 Mg Tab, 100 MG PO DAILY, (Reported) Topiramate (Topamax) 100 Mg Tab, 150 MG PO QHS, (Reported) Scheduled PRN Baclofen (Baclofen) 10 Mg Tablet, 10 MG PO DAILY PRN for SPASMS, (Reported) Diazepam (Valium) 5 Mg Tab, 2.5 MG PO BID PRN for ANXIETY/AGITATION, (Reported) Mineral Oil/Petrolatum,White (Artificial Tears Eye Ointment) 1 Oin Oin, 1 OIN OP QHS PRN for DRY EYES, (Reported) Oxycodone HCl/Acetaminophen (Oxycodone-Acetaminophen 10-325) 1 Each Tablet, 1 TAB PO Q12H PRN for PAIN, (Reported) Sodium Chloride ([place]-128) 5 % Oin, 1 DROP OU BID PRN for DRY EYES, (Reported) Miscellaneous Medications [Patient Comment] , (Reported) TAKES MORNING MEDS AT 0200 AND BEDTIME MEDS AT 1400 Allergies Coded Allergies: TAPE (Unverified Allergy, Intermediate, RASH, 03/01/19) latex (Verified Allergy, Unknown, 03/01/19) nicotine (Verified Allergy, Unknown, 03/01/19) soap (Verified Allergy, Unknown, 03/01/19) lacosamide (Verified Adverse Reaction, Intermediate, PALPITATIONS, 03/01/19) Moses Mullen MD Mar 04, 2019 13:09
[2019-03-04] MEDS ORDERED: METO1TAB87 PO (13:17)
[2019-03-04] MEDS ORDERED: LISI-538 PO (13:17)
--- NOTE | 2019-03-04 13:52 | REP ---
RENAL ULTRASOUND WITH DUPLEX DOPPLER RENAL ARTERY EVALUATION: Real-time sonographic evaluation of the kidneys performed. Kidneys are normal in size and echotexture, right kidney measuring 11.9 x 4.5 x 5.8 cm and left kidney 12.3 x 4.2 x 4.6 cm. There is no hydronephrosis or renal mass bilaterally. Urinary bladder is empty. Real-time ultrasound evaluation and duplex Doppler interrogation of renal arteries is performed bilaterally. Peak systolic velocity of the abdominal aorta at the level of the renal artery is 62.3 cm/s. Peak systolic velocity of the main right renal artery is 93.3 cm/s, renal to aortic ratio 1.4. Resistive indices are measured in the upper, middle, and lower thirds of the right kidney and range between 0.61 to 0.66. Acceleration times range between 0.036 and 0.042. Peak systolic velocity of the main left renal artery is 68.4 cm/s, renal to aortic ratio 1.0. Resistive indices range between 0.060 and 0.75. Acceleration times range between 0.039 to 0.042. IMPRESSION: No compelling duplex Doppler sonographic evidence of significant renal artery stenosis bilaterally. Electronically Signed by Charly Isidro MD 03/04/2019 04:05 P
== END 2019-03-04 14:01 | disposition home or self-care (01) | DRG 199 ==
LOC: M ED 11:24 → M ED INP 16:40 → ENRESERV 16:57 → M ICU 17:44 → M PCU 23:10
PROVIDERS: ADMIT Internal Medicine; ATTEND Family Medicine
DX: I16.0 Hypertensive urgency (principal); E66.01 Morbid (severe) obesity due to excess calories; E11.9 Type 2 diabetes mellitus without complications; R07.2 Precordial pain; M79.7 Fibromyalgia; G89.29 Other chronic pain; F32.9 Major depressive disorder, single episode, unspecified; M54.9 Dorsalgia, unspecified; Z79.82 Long term (current) use of aspirin; Z79.84 Long term (current) use of oral hypoglycemic drugs; Z79.899 Other long term (current) drug therapy; Z91.040 Latex allergy status; Z91.048 Other nonmedicinal substance allergy status; Z87.891 Personal history of nicotine dependence

== ENCOUNTER → 2019-04-19 | Outpatient (CLI) | payer OTHER ==
[~2019-04-19] MED LIST changes: +BAYE500T2 PO; +FLON1SPR NARES; +GABA-843 PO; +LISI-538 PO; -MECL-68 PO; +MECL1TAB31 PO; +METO1TAB87 PO; +OXYC10TA3 PO; +PATIENT COMMENT; +SM A PO; +VITA500079 PO
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
== END ==
LOC: M PAIN 09:00
PROVIDERS: ATTEND Family Medicine
DX: M79.7 Fibromyalgia (principal)

== ENCOUNTER → 2019-05-23 | Outpatient (REF) | payer OTHER ==
[2019-05-23 16:43] LABS: ALBUMIN 3.3 GM/DL (3.2-5.2); ALT/SGPT 19 U/L (12-78); BILIRUBIN,TOTAL 0.2 MG/DL (0.2-1.0); BLOOD UREA NITROGEN 17 MG/DL (7-18); CARBON DIOXIDE LEVEL 25 MEQ/L (21-32); CHLORIDE LEVEL 108 MEQ/L (98-107); CHOLESTEROL LEVEL 240 MG/DL (<200); CHOLESTEROL RISK RATIO 3.157 (<5); CREATININE FOR GFR 0.96 MG/DL (0.55-1.30); GLOMERULAR FILTRATION RATE > 60.0 (>45); GLUCOSE, FASTING 112 MG/DL (70-100); HDL CHOLESTEROL 76 MG/DL (>40); LDL CHOLESTEROL 140 MG/DL (<100); NON-HDL-C 164 MG/DL; POTASSIUM SERUM 4.3 MEQ/L (3.5-5.1); SODIUM LEVEL 142 MEQ/L (136-145); TOTAL PROTEIN 7.4 GM/DL (6.4-8.2); TRIGLYCERIDES LEVEL 118 MG/DL (<150)
[2019-05-23 16:52] LABS: CREATININE, URINE 51.3 MG/DL; MALB URINE SIEMENS < 5.0 MG/L; MAU/CREAT RATIO 9.7 MCG/MG (0.0-30.0)
== END ==
LOC: M SFHCADAM 11:29
PROVIDERS: ATTEND Family Medicine
DX: E11.9 Type 2 diabetes mellitus without complications (principal); E78.2 Mixed hyperlipidemia

== ENCOUNTER → 2019-06-26 | Outpatient (CLI) | payer OTHER ==
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
== END ==
LOC: M PAIN 09:00
PROVIDERS: ATTEND Family Medicine
DX: M79.7 Fibromyalgia (principal); E11.9 Type 2 diabetes mellitus without complications; Z86.59 Personal history of other mental and behavioral disorders; E55.9 Vitamin D deficiency, unspecified; G47.33 Obstructive sleep apnea (adult) (pediatric); I10 Essential (primary) hypertension; Z87.891 Personal history of nicotine dependence; Z88.8 Allergy status to other drugs, medicaments and biological substances; Z91.09 Other allergy status, other than to drugs and biological substances; E66.01 Morbid (severe) obesity due to excess calories; Z68.42 Body mass index [BMI] 45.0-49.9, adult; Z79.84 Long term (current) use of oral hypoglycemic drugs; Z79.891 Long term (current) use of opiate analgesic; Z79.899 Other long term (current) drug therapy

== ENCOUNTER 2019-08-26 10:13 | Emergency (ER) | payer OTHER ==
[~2019-08-26] VITALS: Ht 157.5 cm; Wt 130.6 kg
--- NOTE | 2019-08-26 10:44 | REP ---
Clinical: Acute chest pain . Comparison: 03/01/2019 . Findings: The mediastinum and cardiac silhouette are stable and within normal limits for portable technique. The lung bowling are clear without acute consolidation, effusion, or pneumothorax. Skeletal structures are intact. Impression: No acute cardiopulmonary process appreciated. Electronically Signed by Mark Chicas MD 08/26/2019 10:36 A
[2019-08-26 10:57] LABS: BASO % 0.3 % (0.0-1.0); EOS # 0.4 10^3/uL (0.0-0.5); HEMATOCRIT 32.7 % (36.0-47.0); HEMOGLOBIN 9.9 g/dl (12.0-15.5); LYMPH # 2.5 10^3/uL (1.5-5.0); LYMPH % 19.4 % (24.0-44.0); MEAN CORPUSCULAR HEMOGLOBIN 25.9 pg (27.0-33.0); MEAN CORPUSCULAR HGB CONC 30.3 g/dl (32.0-36.5); MEAN CORPUSCULAR VOLUME 85.6 fl (80.0-96.0); MONO # 0.9 10^3/uL (0.0-0.8); NEUTROPHILS # 8.8 10^3/uL (1.5-8.5); NEUTROPHILS % 69.8 % (36.0-66.0); PLATELET COUNT, AUTOMATED 359 10^3/uL (150-450); RED BLOOD COUNT 3.82 10^6/uL (4.00-5.40); WHITE BLOOD COUNT 12.7 10^3/uL (4.0-10.0)
[2019-08-26 11:13] LABS: BLOOD UREA NITROGEN 18 MG/DL (7-18); CALCIUM LEVEL 9.1 MG/DL (8.8-10.2); CARBON DIOXIDE LEVEL 24 MEQ/L (21-32); CHLORIDE LEVEL 108 MEQ/L (98-107); CK-MB VALUE MASS < 1.0 NG/ML (<3.6); CPK CREATINE PHOSPHOKINASE 71 U/L (26-192); CREATININE FOR GFR 0.97 MG/DL (0.55-1.30); GLOMERULAR FILTRATION RATE > 60.0 (>45); GLUCOSE, FASTING 133 MG/DL (70-100); MB/CK RELATIVE INDEX 1.41 (< OR =4); POTASSIUM SERUM 3.8 MEQ/L (3.5-5.1); SODIUM LEVEL 140 MEQ/L (136-145); TROPONIN I < 0.02 NG/ML (< 0.10)
[2019-08-26] MEDS: NITROGLYCERIN 0.4 MG SUBL TABLET SL PRN ×2 (11:26→11:32)
[2019-08-26 11:27] LABS: ALBUMIN 3.2 GM/DL (3.2-5.2); ALT/SGPT 21 U/L (12-78); BILIRUBIN,DIRECT < 0.1 MG/DL (0.0-0.2); BILIRUBIN,TOTAL 0.1 MG/DL (0.2-1.0); FREE T4 0.94 NG/DL (0.76-1.46); LIPASE 158 U/L (73-393); NT-PRO BNP 14 PG/ML (<125); TOTAL PROTEIN 7.3 GM/DL (6.4-8.2)
[2019-08-26 11:32] VITALS: BP 127/85
[2019-08-26] MEDS ORDERED: ISOVUE-370 76% 100ML VIAL As Ordered ONE (11:32)
[2019-08-26 11:52] LABS: PROTHROMBIN TIME 12.9 SECONDS (11.8-14.0)
--- NOTE | 2019-08-26 12:11 | REP ---
Clinical: Acute chest pain and shortness of breath . Technique: Axial contrast enhanced images from the thoracic inlet to the upper abdomen using 75 ml Isovue 370 intravenous contrast material with coronal and sagittal re-formations. Findings: Satisfactory enhancement of the pulmonary vasculature is achieved and no filling defects are identified to suggest pulmonary embolus. Thoracic aorta is normal caliber without aneurysm or dissection. Heart and pericardium are normal. Stable benign 2.5 cm right pericardial cyst again noted. Bilateral lung bowling are well aerated and clear without acute pulmonary parenchymal consolidation or atelectasis. No nodule or mass lesion. No pleural effusion/reaction. No pneumothorax. No adenopathy. Impression: No evidence for pulmonary embolus. No acute pleuroparenchymal or mediastinal process. Stable benign pericardial cyst. Electronically Signed by Mark Chicas MD 08/26/2019 12:03 P
--- NOTE | 2019-08-26 16:47 | ECGEPIP ---
[facility] - ED Test Date: 2019-08-26 Pat Name: DEVIN AGUAYO Department: Room: - Gender: Female Case Picker: : [id number] Requested By: Nickie Lennon Order Number: [id number] Reading MD: Nickie Lennon Measurements Intervals [place] Rate: 89 P: 64 ND: 192 QRS: -5 QRSD: 120 T: 39 QT: 369 QTc: 449 Interpretive Statements SINUS RHYTHM MODERATE INTRAVENTRICULAR CONDUCTION DELAY NSTTW abnormalities similar to prior EKG 03/01/19 Electronically Signed on 08-26-2019 16:46:41 EDT by Nickie Lennon
--- NOTE | 2019-08-26 16:51 | ECGEPIP ---
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
[2019-08-26 17:20] LABS: CK-MB VALUE MASS < 1.0 NG/ML (<3.6); CPK CREATINE PHOSPHOKINASE 74 U/L (26-192); MB/CK RELATIVE INDEX 1.35 (< OR =4); TROPONIN I < 0.02 NG/ML (< 0.10)
[2019-08-26 17:45] VITALS: BP 134/60
== END 2019-08-26 18:00 | disposition home or self-care (01) ==
LOC: M ED 10:13
DX: R07.9 Chest pain, unspecified (principal); R06.02 Shortness of breath; E11.9 Type 2 diabetes mellitus without complications; I11.9 Hypertensive heart disease without heart failure; E78.9 Disorder of lipoprotein metabolism, unspecified; G47.30 Sleep apnea, unspecified; R51 Headache; H18.51 Endothelial corneal dystrophy; Z91.048 Other nonmedicinal substance allergy status; Z87.891 Personal history of nicotine dependence; Z88.8 Allergy status to other drugs, medicaments and biological substances; Z79.899 Other long term (current) drug therapy; Z79.84 Long term (current) use of oral hypoglycemic drugs
CPT/HCPCS: 71045; 71275; 80048; 80076; 82550; 82553; 83690; 83880; 84439; 84443; 85025; 85610; 93005; 93041; 94760; 99285; Q9967

== ENCOUNTER → 2019-08-28 | Outpatient (CLI) | payer OTHER ==
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
== END ==
LOC: M PAIN 11:00
PROVIDERS: ATTEND Family Medicine
DX: M79.7 Fibromyalgia (principal)

== ENCOUNTER → 2019-10-24 | Outpatient (REF) | payer OTHER ==
[2019-10-24 19:50] LABS: HEMATOCRIT 34.5 % (36.0-47.0); HEMOGLOBIN 10.2 g/dl (12.0-15.5); MEAN CORPUSCULAR HEMOGLOBIN 26.1 pg (27.0-33.0); MEAN CORPUSCULAR HGB CONC 29.6 g/dl (32.0-36.5); MEAN CORPUSCULAR VOLUME 88.2 fl (80.0-96.0); PLATELET COUNT, AUTOMATED 372 10^3/uL (150-450); RED BLOOD COUNT 3.91 10^6/uL (4.00-5.40); WHITE BLOOD COUNT 12.5 10^3/uL (4.0-10.0)
[2019-10-24 19:59] LABS: HEMOGLOBIN A1c 7.3 %
[2019-10-24 20:10] LABS: ALBUMIN 3.3 GM/DL (3.2-5.2); ALT/SGPT 23 U/L (12-78); BILIRUBIN,TOTAL 0.2 MG/DL (0.2-1.0); BLOOD UREA NITROGEN 30 MG/DL (7-18); CALCIUM LEVEL 9.8 MG/DL (8.8-10.2); CARBON DIOXIDE LEVEL 26 MEQ/L (21-32); CHLORIDE LEVEL 113 MEQ/L (98-107); CREATININE FOR GFR 0.85 MG/DL (0.55-1.30); GLOMERULAR FILTRATION RATE > 60.0 (>45); GLUCOSE, FASTING 122 MG/DL (70-100); SODIUM LEVEL 144 MEQ/L (136-145); TOTAL PROTEIN 7.3 GM/DL (6.4-8.2)
== END ==
LOC: M LABDRWAD 19:16
PROVIDERS: ATTEND Family Medicine
DX: R13.10 Dysphagia, unspecified (principal); E11.9 Type 2 diabetes mellitus without complications

== ENCOUNTER → 2019-11-28 | Outpatient (CLI) | payer OTHER ==
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
== END ==
LOC: M PAIN 09:30
PROVIDERS: ATTEND Family Medicine
DX: M79.18 Myalgia, other site (principal); M79.7 Fibromyalgia; E11.9 Type 2 diabetes mellitus without complications; E55.9 Vitamin D deficiency, unspecified; G47.33 Obstructive sleep apnea (adult) (pediatric); I10 Essential (primary) hypertension; Z86.59 Personal history of other mental and behavioral disorders; Z87.891 Personal history of nicotine dependence; Z88.8 Allergy status to other drugs, medicaments and biological substances; Z91.09 Other allergy status, other than to drugs and biological substances; E66.01 Morbid (severe) obesity due to excess calories; Z68.43 Body mass index [BMI] 50.0-59.9, adult; Z79.84 Long term (current) use of oral hypoglycemic drugs; Z79.891 Long term (current) use of opiate analgesic; Z79.899 Other long term (current) drug therapy

== ENCOUNTER → 2019-12-02 | Outpatient (CLI) | payer OTHER | LOC: M LABSMTC 11:35 | PROVIDERS: ATTEND Anesthesiology | DX: Z20.828 Contact with and (suspected) exposure to other viral communicable diseases (principal) | CPT/HCPCS: C9803; U0003 ==

== ENCOUNTER → 2019-12-07 | Outpatient (CLI) | payer OTHER ==
[~2019-12-07] MED LIST changes: +BUPIVACAINE HCL 0.25% 10ML VIAL As Ordered ONE; +BUPIVACAINE HCL 0.25% 30ML VIAL As Ordered ONE; +TRIAMCINOLONE ACETONIDE SUSP 40 MG/ML VIAL (J3301) As Ordered ONE
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
== END ==
LOC: M PAIN 13:00
PROVIDERS: ATTEND Anesthesiology
DX: M79.18 Myalgia, other site (principal); E11.9 Type 2 diabetes mellitus without complications; G40.909 Epilepsy, unspecified, not intractable, without status epilepticus; E55.9 Vitamin D deficiency, unspecified; G47.33 Obstructive sleep apnea (adult) (pediatric); I10 Essential (primary) hypertension; Z87.891 Personal history of nicotine dependence; Z88.8 Allergy status to other drugs, medicaments and biological substances; Z91.09 Other allergy status, other than to drugs and biological substances; E66.01 Morbid (severe) obesity due to excess calories; Z68.42 Body mass index [BMI] 45.0-49.9, adult; Z79.84 Long term (current) use of oral hypoglycemic drugs; Z79.891 Long term (current) use of opiate analgesic; Z79.899 Other long term (current) drug therapy
CPT/HCPCS: 20552; J3301

== ENCOUNTER → 2019-12-21 | Outpatient (CLI) | payer OTHER ==
[~2019-12-21] MED LIST changes: -BUPIVACAINE HCL 0.25% 10ML VIAL As Ordered ONE; -BUPIVACAINE HCL 0.25% 30ML VIAL As Ordered ONE; -TRIAMCINOLONE ACETONIDE SUSP 40 MG/ML VIAL (J3301) As Ordered ONE
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
== END ==
LOC: M PAIN 10:45
PROVIDERS: ATTEND Family Medicine
DX: G89.29 Other chronic pain (principal); M79.18 Myalgia, other site; E11.9 Type 2 diabetes mellitus without complications; G40.909 Epilepsy, unspecified, not intractable, without status epilepticus; E55.9 Vitamin D deficiency, unspecified; G47.33 Obstructive sleep apnea (adult) (pediatric); I10 Essential (primary) hypertension; Z86.59 Personal history of other mental and behavioral disorders; Z87.891 Personal history of nicotine dependence; Z88.8 Allergy status to other drugs, medicaments and biological substances; Z91.09 Other allergy status, other than to drugs and biological substances; E66.01 Morbid (severe) obesity due to excess calories; Z68.42 Body mass index [BMI] 45.0-49.9, adult; Z79.84 Long term (current) use of oral hypoglycemic drugs; Z79.891 Long term (current) use of opiate analgesic; Z79.899 Other long term (current) drug therapy

== ENCOUNTER 2020-02-28 12:45 | Inpatient (IN) | payer OTHER ==
[~2020-02-28] VITALS: Ht 157.5 cm; Wt 130.0 kg
[~2020-02-28 12:45] MED LIST changes: +RA A PO; -SM A PO
[2020-02-28 13:54] LABS: HEMATOCRIT 39.6 % (36.0-47.0); HEMOGLOBIN 11.7 g/dl (12.0-15.5); MEAN CORPUSCULAR HEMOGLOBIN 25.1 pg (27.0-33.0); MEAN CORPUSCULAR HGB CONC 29.5 g/dl (32.0-36.5); MEAN CORPUSCULAR VOLUME 84.8 fl (80.0-96.0); PLATELET COUNT, AUTOMATED 289 10^3/uL (150-450); RED BLOOD COUNT 4.67 10^6/uL (4.00-5.40); WHITE BLOOD COUNT 23.6 10^3/uL (4.0-10.0)
[2020-02-28] MEDS ORDERED: NS 1,000 ML IV SCH (13:55)
[2020-02-28] MEDS ORDERED: PANTOPRAZOLE 40MG VIAL (C9113 PER 1) IV ONE (14:00)
[2020-02-28] MEDS ORDERED: ONDANSETRON 4MG/2ML VIAL IV ONE (14:00)
[2020-02-28] MEDS ORDERED: KETOROLAC 30 MG/ML 1ML VIAL IV ONE (14:00)
[2020-02-28 14:08] LABS: INR 0.84; PROTHROMBIN TIME 11.7 SECONDS (12.5-14.3)
[2020-02-28 14:10] LABS: LYMPHOCYTES 3 % (16-44); MONOCYTES 4 % (0-5); NEUTROPHILS 82 % (28-66); PLATELET ESTIMATE NORMAL (NORMAL)
[2020-02-28 14:17] LABS: ALBUMIN 3.2 GM/DL (3.2-5.2); ALT/SGPT 198 U/L (12-78); AMYLASE 617 U/L (25-115); BILIRUBIN,DIRECT 0.2 MG/DL (0.0-0.2); BILIRUBIN,TOTAL 0.4 MG/DL (0.2-1.0); BLOOD UREA NITROGEN 27 MG/DL (7-18); CALCIUM LEVEL 9.5 MG/DL (8.8-10.2); CARBON DIOXIDE LEVEL 25 MEQ/L (21-32); CHLORIDE LEVEL 105 MEQ/L (98-107); CK-MB VALUE MASS 1.2 NG/ML (<3.6); CPK CREATINE PHOSPHOKINASE 73 U/L (26-192); CREATININE FOR GFR 0.89 MG/DL (0.55-1.30); GLOMERULAR FILTRATION RATE > 60.0 (>45); GLUCOSE, FASTING 182 MG/DL (70-100); LIPASE 6829 U/L (73-393); MB/CK RELATIVE INDEX 1.64 (< OR =4); POTASSIUM SERUM 4.1 MEQ/L (3.5-5.1); SODIUM LEVEL 137 MEQ/L (136-145); TOTAL PROTEIN 7.1 GM/DL (6.4-8.2); TROPONIN I < 0.02 NG/ML (< 0.10)
--- NOTE | 2020-02-28 14:37 | REP ---
INDICATION: abd pain distention COMPARISON: None TECHNIQUE: Axial noncontrast images from the lung bases to the pubic symphysis with coronal and sagittal reformations. This CT examination was performed using the following dose reduction techniques: Automated exposure control, adjustment of mA and/or kv according to the patient's size, and use of iterative reconstruction technique. FINDINGS: Moderate to significant inflammatory stranding surrounding the pancreas and extending into the surrounding mesentery including small amount of fluid in the lesser sac and fluid along the pericolic gutters into the pelvis is most consistent with acute pancreatitis. No obvious drainable collection, pseudocyst or abscess. Liver, spleen, right adrenal gland and bilateral kidneys are normal for noncontrast evaluation. The gallbladder is moderately distended and mild pericholecystic fluid cannot exclude associated acute cholecystitis. A 1.7 cm benign left adrenal adenoma noted. The enteric system is without obstruction or acute inflammatory process. Pelvis demonstrates normal bladder and age-appropriate uterus/adnexa. No free air. No significant retroperitoneal adenopathy. Abdominal aorta without aneurysm. Musculoskeletal structures demonstrate age-related changes without acute osseous abnormality. Lung bases are clear. IMPRESSION: 1. Findings described above consistent with acute pancreatitis and possible acute cholecystitis. No drainable collection/abscess or pseudocyst. <Electronically signed by Mark Chicas > 02/28/20 [id number]
--- NOTE | 2020-02-28 14:45 | REP ---
INDICATION: abd pain COMPARISON: 08/26/2019 TECHNIQUE: Portable AP view of the chest FINDINGS: The mediastinum and cardiac silhouette are stable and within normal limits for portable technique. The lung bowling are clear without acute consolidation, effusion, or pneumothorax. Skeletal structures are intact. IMPRESSION: No acute cardiopulmonary process appreciated. <Electronically signed by Mark Chicas > 02/28/20 [id number]
[2020-02-28] MEDS ORDERED: PROMETHAZINE INJ 25 MG/ML VIAL (J2550) IV ONE (15:15)
[2020-02-28] MEDS ORDERED: MORPHINE 4 MG/ML 1ML VIAL/SYRINGE (J2270) IV ONE (15:15)
[2020-02-28] MEDS ORDERED: DEXTROSE 50% 50 ML SYRINGE IV PRN (16:15)
[2020-02-28] MEDS ORDERED: GLUCAGON INJ 1MG VIAL SC PRN (16:15)
[2020-02-28] MEDS ORDERED: diazePAM 5MG TABLET PO PRN (16:15)
[2020-02-28] MEDS ORDERED: GLUCOSE 4GM CHEW TABLET PO PRN (16:15)
[2020-02-28] MEDS ORDERED: LOPE1CAP5 PO (17:14)
[2020-02-28] MEDS ORDERED: BACL1TAB9 PO (17:14)
[2020-02-28] MEDS: PIPERACILLIN/TAZOBACTAM SOD 3.375 GM in D5W MINI-BAG PLUS 50 ML IV SCH ×2 (17:18→23:40)
[2020-02-28] MEDS: HumaLOG INSULIN (NovoLOG) PER UNIT SC SCH (18:00)
[2020-02-28 18:18] LABS: RSV AMPLIFICATION NEGATIVE (NEGATIVE)
[2020-02-28 19:00] VITALS: BP 131/61
[2020-02-28] MEDS ORDERED: PILL CUTTER 1 EACH XX PRN (19:00)
[2020-02-28] MEDS: LR 1,000 ML IV SCH ×2 (19:49→22:55)
[2020-02-28] MEDS: DULoxetine 30 MG CAP (CYMBALTA) PO SCH (20:19)
[2020-02-28] MEDS: METOPROLOL TART 25 MG TABLET PO SCH (20:19)
[2020-02-28] MEDS: ENOXAPARIN 40MG/0.4ML SYRINGE (J1650 PER 10MG) SC SCH (20:20)
[2020-02-28] MEDS: TOPIRAMATE (TopAMAX) 25 MG TAB PO SCH (20:20)
[2020-02-28] MEDS: PANTOPRAZOLE 40MG VIAL (C9113 PER 1) IV SCH (20:20)
[2020-02-28] MEDS: TOPIRAMATE (TopAMAX) 100 MG TAB PO SCH (20:23)
[2020-02-29] VITALS (7 sets, daily range): BP systolic 141–157; BP diastolic 68–88
[2020-02-29] MEDS: MORPHINE 2 MG/ML 1ML VIAL (J2270) IV PRN ×3 (04:04→17:26)
[2020-02-29] MEDS: PIPERACILLIN/TAZOBACTAM SOD 3.375 GM in D5W MINI-BAG PLUS 50 ML IV SCH ×3 (04:05→17:26)
[2020-02-29] MEDS: HumaLOG INSULIN (NovoLOG) PER UNIT SC SCH ×4 (05:30→18:00)
[2020-02-29] MEDS: LR 1,000 ML IV SCH ×3 (05:30→21:17)
--- NOTE | 2020-02-29 07:55 | CR ---
CONSULTATION DATE: 02/28/2020 REASON FOR CONSULTATION: Pancreatitis. HISTORY OF PRESENT ILLNESS: The patient is a 64-year-old woman who suffers from obesity and diabetes mellitus who reports that she was awakened at 6 o'clock in the morning on Wednesday, the 25 of February with severe abdominal pain. This was primarily in the upper abdomen. She developed some nausea and vomiting and had been unable to keep anything down. Her pain persisted during the ensuing two days and she presented to the emergency department for evaluation just after noon today, the 27 of February. She underwent evaluation with some laboratory studies and ultimately had a CT scan of the abdomen and pelvis. She was found to have labs showing elevation of her lipase to 6829 with an amylase of 617 and had elevations of her AST, ALT and alkaline phosphatase as well. Total bilirubin was normal. The CT scan showed significant inflammatory changes around the pancreas, in particular with some free fluid within the abdomen. The radiologist felt that the findings showed a moderately distended gallbladder and some mild pericholecystic fluid. No definite gallstones were seen, however. She was admitted by the hospitalist and I am now consulted to evaluate the patient. MEDICATIONS ALLERGIES: REPORTED TO TAPE, LACOSAMIDE, LATEX, NICOTINE AND SOAP. MEDICATIONS AT THE TIME OF ADMISSION: Include aspirin/caffeine tablets, two tablets twice daily, baclofen 20 mg twice daily, valium 2.5 mg twice daily, Duloxetine 30 mg p.o. twice daily, lisinopril 20 mg. p.o. daily, loperamide 2 mg capsules twice weekly on Wednesday and , metformin 850 mg tablets twice daily, metoprolol tartrate 25 mg p.o. twice daily, nortriptyline 50 mg p.o. q.h.s. and 25 mg p.o. daily, oxycodone, acetaminophen tablets 10/325 one q.12 hours as needed for pain, Topamax 100 mg p.o. daily and 150 mg p.o. q.h.s. PAST SURGICAL HISTORY: Significant for a tubal ligation. She has had surgery for a right knee torn meniscus. PAST MEDICAL HISTORY: Significant for diabetes mellitus. She has a history of chronic back pain. She has been receiving injections for this at the pain center. She has a history of depression and nonepileptic seizures. She has obstructive sleep apnea on CPAP. She has reported history of fibromyalgia. She has hypertension. FAMILY HISTORY: Significant for diabetes, hypertension and hyperlipidemia in her mother. SOCIAL HISTORY: The patient denies any alcohol use or tobacco use. She is . REVIEW OF SYSTEMS: Reveals no recent chest pain, cough or wheezing. She denies any cardiac issues. She has had no prior history of hepatitis, pancreatitis or jaundice. She denies any history of DVT or pulmonary embolus. She denies any significant renal problems. PHYSICAL EXAMINATION: General: Reveals a pleasant woman lying on the hospital bed. She appears morbidly obese. She is alert and oriented and responsive. Most recent vital signs show that she had a temperature of 97.6, pulse of 118, respirations 20 and a blood pressure of 131/61. Pulse oximetry on room air was 90 at that time. Sclerae are anicteric. The skin is warm and dry. Heart exam shows a regular tachycardia. The lungs show bilateral breath sounds anteriorly. The abdomen is obese but also appears distended. She has diffuse tenderness which appears to be most pronounced high in the mid-epigastrium. There is significant tenderness to gentle percussion and on palpation, the abdomen is soft but there is diffuse tenderness again most prominent in the epigastrium. The patient has palpable radial pulses bilaterally. LABORATORY STUDIES: Today showed a sodium of 137, potassium 4.1, chloride 105, CO2 25, BUN of 27, creatinine 0.8 and a glucose of 182. Her total bilirubin is 0.4 with an AST 185, ALT 198 and an alk phos of 186. Her CK is only 73 and her troponin is less than 0.02. Amylase is 617 with a lipase of 6829. CBC showed a white count of 24,000, hemoglobin 12, hematocrit 40 and a platelet count of 289,000. Her differential count showed 82% neutrophils, 11% bands and 3% lymphocytes. Her PT and INR were normal. COVID serology is negative. CT scan done in the emergency department showed inflammatory stranding surrounding the pancreas with some fluid in the lesser sac and in the pericolic gutters into the pelvis. The gallbladder was reported as moderately distended and the radiologists felt they could not exclude acute cholecystitis. There was no mention of gallstones, however. IMAGING STUDIES: I reviewed the images personally and I see no definite gallstones. The gallbladder wall does not appear to me to be significantly thickened. There is certainly a significant inflammatory change around the pancreas. IMPRESSION: 1. Pancreatitis of unclear etiology. 2. Diabetes mellitus. 3. Morbid obesity. 4. Obstructive sleep apnea. 5. Hypertension. 6. Chronic back pain. 7. Fibromyalgia. RECOMMENDATIONS: At this point, the patient should be treated for her pancreatitis with all supportive measures. I would recommend keeping her NPO for now with the possible exception of a few ice chips. She should receive pain medication as needed. She should receive fluid boluses or IV fluid as necessary to meet her needs. If her pancreatitis results in a significant ileus, then she may well require total parenteral nutrition. Her diabetes will need to be managed as appropriate. At some point, obtaining a gallbladder ultrasound would be prudent but certainly she will not tolerate this well and the pictures will be probably unrevealing if we try to do this while the pancreatitis is still quite acute. I will follow her while we see how she responds to treatment. If she is subsequently found to have gallstones and no other evident cause for pancreatitis, then a cholecystectomy may be appropriate.
[2020-02-29 08:56] LABS: BASO % 0.1 % (0.0-1.0); HEMATOCRIT 36.3 % (36.0-47.0); HEMOGLOBIN 10.8 g/dl (12.0-15.5); LYMPH # 1.3 10^3/uL (1.5-5.0); LYMPH % 5.1 % (24.0-44.0); MEAN CORPUSCULAR HEMOGLOBIN 25.7 pg (27.0-33.0); MEAN CORPUSCULAR HGB CONC 29.8 g/dl (32.0-36.5); MEAN CORPUSCULAR VOLUME 86.4 fl (80.0-96.0); MONO # 1.6 10^3/uL (0.0-0.8); MONO % 6.3 % (0.0-5.0); NEUTROPHILS # 22.8 10^3/uL (1.5-8.5); NEUTROPHILS % 87.8 % (36.0-66.0); PLATELET COUNT, AUTOMATED 306 10^3/uL (150-450)
[2020-02-29] MEDS ORDERED: DULoxetine 30 MG CAP (CYMBALTA) PO SCH (09:00)
[2020-02-29] MEDS: TOPIRAMATE (TopAMAX) 100 MG TAB PO SCH ×2 (09:26→21:16)
[2020-02-29] MEDS: DULoxetine 30 MG CAP (CYMBALTA) PO SCH ×2 (09:27→21:16)
[2020-02-29] MEDS: METOPROLOL TART 25 MG TABLET PO SCH ×2 (09:27→21:17)
[2020-02-29 09:35] LABS: ALBUMIN 2.9 GM/DL (3.2-5.2); BILIRUBIN,TOTAL 0.5 MG/DL (0.2-1.0); CALCIUM LEVEL 8.4 MG/DL (8.8-10.2); CREATININE FOR GFR 1.02 MG/DL (0.55-1.30); GLOMERULAR FILTRATION RATE 58.5 (>45); POTASSIUM SERUM 3.7 MEQ/L (3.5-5.1); TOTAL PROTEIN 6.4 GM/DL (6.4-8.2)
--- NOTE | 2020-02-29 09:43 | REP ---
INDICATION: gallbladder and biliary tree, choledocholithiasis?CBD stone? COMPARISON: None. TECHNIQUE: Real time newton scale ultrasound examination using curved array transducer. FINDINGS: Liver is enlarged and measures 22 cm in craniocaudal length and demonstrates increased parenchymal echotexture with poor through transmission suggesting hepatosteatosis. The pancreas is incompletely evaluated but there appears to be a 7.0 x 3.7 x 3.8 cm hypoechoic area at the pancreatic tail which may represent pseudocyst. Evaluation of the gallbladder demonstrates multiple stones, wall thickening to 5 mm, trace pericholecystic fluid and right upper quadrant tenderness highly suspect for acute cholecystitis. The common bile duct is normal and measures 6 mm diameter. The right kidney is normal in reniform shape without hydronephrosis and measures 11.2 x 6.2 x 6.1 cm. IMPRESSION: Findings consistent with acute cholecystitis. Hepatomegaly and hepatosteatosis. Possible pancreatic pseudocyst. <Electronically signed by Mark Chicas > 02/29/20 0925
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
[2020-02-29] MEDS: KETOROLAC 30 MG/ML 1ML VIAL IV PRN ×2 (12:02→21:32)
--- NOTE | 2020-02-29 21:10 | IPNPDOC ---
Subjective Date Seen The patient was seen on 02/29/20. Subjective Chief Complaint/HPI Mrs. Prasad is a 64 year old female here with abdominal pain 2/2 acute cholecystitis with gallstones and pancreatitis. This morning, she was still having severe abdominal pain and discomfort. Obtained US of gallbladder and biliary tree. CBD not dilatated. Objective Physical Examination General Exam: Positive: Alert, Cooperative, Moderate Distress Eye Exam: Positive: EOMI; Negative: Sclera icteric Chest Exam: Positive: Clear to auscultation; Negative: Wheezing Heart Exam: Positive: Tachycardic, Regular Rhythm Abdomen Exam: Positive: BS Hypoactive, Tenderness; Negative: Soft Extremity Exam: Negative: Edema Neuro Exam: Positive: Normal Speech Psych Exam: Positive: Mental status NL Assessment /Plan Assessment Mrs. Prasad is a 64 year old female here with abdominal pain 2/2 acute cholecystitis with gallstones and pancreatitis. There is a slight elevation in her AST and ALT. She may have had gallstone pancreatitis that passed the stone. Not a surgical candidate for cholecystitis. First manage pancreatitis with IV fluids and NPO. Follow with general surgery outpatient for cholecystectomy. Plan/VTE VTE Prophylaxis Ordered?: Yes Plan 1. Acute pancreatitis Patient may have had gallstone pancreatitis that passed the stone Continue trending CMP and lipase Continue with NPO and IVF 2. Acute cholecystitis with gallstones Common bile duct not dilatated, 6 mm on ultrasound If patient becomes septic, may need cholecystectomy tube Otherwise continue with Zosyn Follow up outpatient with general surgery for cholecystectomy 3. Diabetes mellitus Insulin sliding scale every 6 hours 4. Epilepsy Continue Topamax 5. DVT prophylaxis Lovenox Disposition: Once acute pancreatitis resolves patient will need to follow up outpatient with general surgery for cholecystectomy VS, I&O, 24H, Chris Vital Signs/I&O Vital Signs Date Time Temp Pulse Resp B/P (MAP) Pulse Ox O2 Delivery O2 Flow Rate FiO2 02/29/20 17:36 18 02/29/20 16:30 98.4 96 157/79 (105) 94 Room Air I&O- Last 24 Hours up to 6 AM 02/29/20 06:00 Intake Total 1170 ml Output Total 300 ml Balance 870 ml Laboratory Data 24H LABS Laboratory Tests 2 02/28/20 23:49: Bedside Glucose (Misc Panel) 162H 02/29/20 05:22: Bedside Glucose (Misc Panel) 162H 02/29/20 08:07: Immature Granulocyte % (Auto) 0.7, Neutrophils (%) (Auto) 87.8H, Lymphocytes (%) (Auto) 5.1L, Monocytes (%) (Auto) 6.3H, Eosinophils (%) (Auto) 0.0, Basophils (%) (Auto) 0.1, Neutrophils # (Auto) 22.8H, Lymphocytes # (Auto) 1.3L, Monocytes # (Auto) 1.6H, Eosinophils # (Auto) 0.0, Basophils # (Auto) 0.0, Nucleated Red Blood Cells % (auto) 0.0, Anion Gap 6L, Glomerular Filtration Rate 58.5, Calcium Level 8.4L, Total Bilirubin 0.5, Aspartate Amino Transf (AST/SGOT) 73H, Alanine Aminotransferase (ALT/SGPT) 134H, Alkaline Phosphatase 159H, Total Protein 6.4, Albumin 2.9L, Albumin/Globulin Ratio 0.8L, Lipase 3659H 02/29/20 12:10: Bedside Glucose (Misc Panel) 168H 02/29/20 17:07: Bedside Glucose (Misc Panel) 129H CBC/BMP Laboratory Tests 02/29/20 08:07 JOHNATHON ZAMUDIO DO Feb 29, 2020 21:10
[2020-02-29] MEDS: PANTOPRAZOLE 40MG VIAL (C9113 PER 1) IV SCH (21:15)
[2020-02-29] MEDS: ENOXAPARIN 40MG/0.4ML SYRINGE (J1650 PER 10MG) SC SCH (21:15)
[2020-02-29] MEDS: TOPIRAMATE (TopAMAX) 25 MG TAB PO SCH (21:16)
[2020-03-01] MEDS: PIPERACILLIN/TAZOBACTAM SOD 3.375 GM in D5W MINI-BAG PLUS 50 ML IV SCH ×4 (00:09→17:26)
[2020-03-01] MEDS: LR 1,000 ML IV SCH ×3 (00:12→17:26)
[2020-03-01] MEDS: HumaLOG INSULIN (NovoLOG) PER UNIT SC SCH ×5 (00:12→17:13)
[2020-03-01 06:00] VITALS: BP 143/82
[2020-03-01 06:26] LABS: BASO % 0.1 % (0.0-1.0); EOS # 0.1 10^3/uL (0.0-0.5); EOS % 0.6 % (0.0-3.0); HEMATOCRIT 30.4 % (36.0-47.0); HEMOGLOBIN 9.4 g/dl (12.0-15.5); LYMPH # 1.2 10^3/uL (1.5-5.0); LYMPH % 5.6 % (24.0-44.0); MEAN CORPUSCULAR HEMOGLOBIN 26.2 pg (27.0-33.0); MEAN CORPUSCULAR HGB CONC 30.9 g/dl (32.0-36.5); MEAN CORPUSCULAR VOLUME 84.7 fl (80.0-96.0); MONO # 1.5 10^3/uL (0.0-0.8); MONO % 7.2 % (0.0-5.0); NEUTROPHILS # 17.5 10^3/uL (1.5-8.5); NEUTROPHILS % 85.6 % (36.0-66.0); PLATELET COUNT, AUTOMATED 268 10^3/uL (150-450); RED BLOOD COUNT 3.59 10^6/uL (4.00-5.40); WHITE BLOOD COUNT 20.5 10^3/uL (4.0-10.0)
[2020-03-01 07:00] LABS: ALBUMIN 2.3 GM/DL (3.2-5.2); ALT/SGPT 81 U/L (12-78); BILIRUBIN,TOTAL 0.4 MG/DL (0.2-1.0); BLOOD UREA NITROGEN 32 MG/DL (7-18); CARBON DIOXIDE LEVEL 24 MEQ/L (21-32); CHLORIDE LEVEL 107 MEQ/L (98-107); CREATININE FOR GFR 0.94 MG/DL (0.55-1.30); GLOMERULAR FILTRATION RATE > 60.0 (>45); GLUCOSE, FASTING 159 MG/DL (70-100); LIPASE 462 U/L (73-393); POTASSIUM SERUM 3.5 MEQ/L (3.5-5.1); SODIUM LEVEL 138 MEQ/L (136-145); TOTAL PROTEIN 5.5 GM/DL (6.4-8.2)
[2020-03-01] MEDS: TOPIRAMATE (TopAMAX) 100 MG TAB PO SCH ×2 (08:27→20:51)
[2020-03-01] MEDS: DULoxetine 30 MG CAP (CYMBALTA) PO SCH ×2 (08:27→20:52)
[2020-03-01] MEDS: METOPROLOL TART 25 MG TABLET PO SCH ×2 (08:29→20:52)
[2020-03-01] MEDS: MORPHINE 2 MG/ML 1ML VIAL (J2270) IV PRN (09:51)
[2020-03-01] MEDS: KETOROLAC 30 MG/ML 1ML VIAL IV PRN ×2 (12:21→18:26)
[2020-03-01 14:00] VITALS: BP 131/27
--- NOTE | 2020-03-01 14:43 | IPN ---
PROGRESS NOTE DATE: 03/01/2020 SUBJECTIVE: The patient was admitted on the with a two day history of abdominal pain and was found to have pancreatitis. She had an elevated lipase to approximately [address] scan showed marked inflammatory changes with free fluid around the pancreas. She had an ultrasound yesterday that does show gallstones, which are so prominent that there is no question. OBJECTIVE: VITAL SIGNS: Show that she has been afebrile over the past 24 hours. Her pulse has been running in the low 100s over the last 24 hours. Blood pressure is good and her room air oxygen saturations are in the mid 90s. INTAKE AND OUTPUT: Show that yesterday she had 3000 mL in with only 350 mL recorded out. Today, she has 200 mL of urine recorded out. GENERAL APPEARANCE: Patient appears more comfortable than when I saw her on the . She is lying quietly flat on the hospital bed. She seems to be breathing fairly easily. HEART: Shows a regular rhythm, which is mildly tachycardic. LUNGS: Show good bilateral breath sounds anteriorly. ABDOMEN: The abdomen is quite protuberant and obese. She does have some bowel sounds present. Palpation reveals some tenderness fairly diffusely across the upper abdomen, which seems to be most pronounced in the mid epigastrium and extending into the left subcostal area. LABORATORY DATA: Show that her white count remains at 20,000 with a differential showing 86% neutrophils, 6% lymphocytes, and 7% monocytes. Hemoglobin is 9 with a hematocrit of 30 and platelet count is 268,000. Chemistry profile shows normal electrolytes with a BUN 32, creatinine 0.9, and a glucose of 159. Total bilirubin remains normal. AST is down to 29, ALT to 81, and alkaline phosphatase down to 143. Her lipase is down to 462 from 3700 yesterday. As noted yesterday, she had an ultrasound that revealed cholelithiasis. The radiologist felt that the findings were consistent with acute cholecystitis, although I was not particularly impressed by the thickening of the gallbladder wall that was described. IMPRESSION: Probable biliary pancreatitis. RECOMMENDATIONS: At this point, I would continue her IV antibiotics. I would not recommend any urgent surgical intervention at this time. Once her pancreatitis has completely resolved and this will probably be a period of four to six weeks, we can consider proceeding with a cholecystectomy. Otherwise, only if she developed more severe symptoms suggesting the need for urgent surgery would we intervene surgically acutely.
--- NOTE | 2020-03-01 19:04 | IPNPDOC ---
Date Seen The patient was seen on 03/01/20. Progress Note SUBJECTIVE: She is laying in bed, reports mild improvement in abdominal pain, although not completely resolved. She has no other symptoms, denies nausea, vomiting or diarrhea. PHYSICAL EXAMINATION: VITAL SIGNS: Please see below. GENERAL: Morbidly obese HEENT: Normocephalic, atraumatic, moist mucous membranes NECK: Supple CARDIOVASCULAR EXAMINATION: S1, S2, no murmurs RESPIRATORY EXAMINATION: , Poor air movement, diminished in the bases ABDOMINAL EXAMINATION: Soft, mild diffuse tenderness to palpation, nondistended, positive bowel sounds EXTREMITIES: Trace edema SKIN: No rash NEUROLOGICAL EXAMINATION: Alert and oriented 3, no focal deficits PSYCHIATRIC EXAMINATION: Calm and cooperative LABORATORY DATA, IMAGING STUDIES, MICROBIOLOGY: Please see below. ASSESSMENT AND PLAN: 64-year-old female is admitted for acute cholecystitis and acute pancreatitis secondary to likely choledocholithiasis. PROBLEMS: 1. Acute pancreatitis/acute cholecystitis: Likely had choledocholithiasis, stone appears to have passed. Remains on IV fluids and IV antibiotics, clinically improving, slowly. Advance diet to full liquids Pain control with Toradol and morphine 2. Hypertension: Continue metoprolol. 3. Anemia. Steady drop in hemoglobin, likely related to IV fluids. Iron studies ordered. DVT prophylaxis: Lovenox. GI prophylaxis: PPI VS, I&O, 24H, Fishbone Vital Signs/I&O Vital Signs Date Time Temp Pulse Resp B/P (MAP) Pulse Ox O2 Delivery O2 Flow Rate FiO2 03/01/20 14:00 99.7 92 18 131/27 (61) 94 Room Air I&O- Last 24 Hours up to 6 AM 03/01/20 06:00 Intake Total 3080 ml Output Total 350 ml Balance 2730 ml Laboratory Data 24H LABS Laboratory Tests 2 03/01/20 00:02: Bedside Glucose (Misc Panel) 142H 03/01/20 05:56: Immature Granulocyte % (Auto) 0.9, Neutrophils (%) (Auto) 85.6H, Lymphocytes (%) (Auto) 5.6L, Monocytes (%) (Auto) 7.2H, Eosinophils (%) (Auto) 0.6, Basophils (%) (Auto) 0.1, Neutrophils # (Auto) 17.5H, Lymphocytes # (Auto) 1.2L, Monocytes # (Auto) 1.5H, Eosinophils # (Auto) 0.1, Basophils # (Auto) 0.0, Nucleated Red Blood Cells % (auto) 0.0, Anion Gap 7L, Glomerular Filtration Rate > 60.0, Calcium Level 8.0L, Total Bilirubin 0.4, Aspartate Amino Transf (AST/SGOT) 29, Alanine Aminotransferase (ALT/SGPT) 81H, Alkaline Phosphatase 143H, Total Protein 5.5L, Albumin 2.3#L, Albumin/Globulin Ratio 0.7L, Lipase 462H 03/01/20 05:57: Bedside Glucose (Misc Panel) 150H 03/01/20 12:01: Bedside Glucose (Misc Panel) 138H 03/01/20 16:49: Bedside Glucose (Misc Panel) 138H CBC/BMP Laboratory Tests 03/01/20 05:56 JUDIE ABARCA MD Mar 01, 2020 19:04
[2020-03-01] MEDS: PANTOPRAZOLE 40MG VIAL (C9113 PER 1) IV SCH (20:52)
[2020-03-01] MEDS: TOPIRAMATE (TopAMAX) 25 MG TAB PO SCH (20:52)
[2020-03-01] MEDS: ENOXAPARIN 40MG/0.4ML SYRINGE (J1650 PER 10MG) SC SCH (20:53)
[2020-03-01 22:00] VITALS: BP 131/76
[2020-03-02] MEDS: PIPERACILLIN/TAZOBACTAM SOD 3.375 GM in D5W MINI-BAG PLUS 50 ML IV SCH ×3 (00:11→10:36)
[2020-03-02] MEDS: LR 1,000 ML IV SCH ×3 (00:11→10:55)
[2020-03-02] MEDS: KETOROLAC 30 MG/ML 1ML VIAL IV PRN ×2 (00:33→16:49)
[2020-03-02 06:00] VITALS: BP 130/79
[2020-03-02] MEDS: HumaLOG INSULIN (NovoLOG) PER UNIT SC SCH ×2 (06:00)
[2020-03-02 07:49] LABS: BASO % 0.1 % (0.0-1.0); EOS # 0.3 10^3/uL (0.0-0.5); EOS % 1.6 % (0.0-3.0); HEMATOCRIT 29.4 % (36.0-47.0); HEMOGLOBIN 8.9 g/dl (12.0-15.5); LYMPH # 1.2 10^3/uL (1.5-5.0); LYMPH % 7.1 % (24.0-44.0); MEAN CORPUSCULAR HEMOGLOBIN 25.9 pg (27.0-33.0); MEAN CORPUSCULAR HGB CONC 30.3 g/dl (32.0-36.5); MEAN CORPUSCULAR VOLUME 85.7 fl (80.0-96.0); MONO # 1.1 10^3/uL (0.0-0.8); MONO % 6.5 % (0.0-5.0); NEUTROPHILS % 84.2 % (36.0-66.0); PLATELET COUNT, AUTOMATED 289 10^3/uL (150-450); RED BLOOD COUNT 3.43 10^6/uL (4.00-5.40); WHITE BLOOD COUNT 16.6 10^3/uL (4.0-10.0)
[2020-03-02] MEDS ORDERED: DEXTROSE 50% 50 ML SYRINGE IV PRN (08:15)
[2020-03-02] MEDS ORDERED: GLUCAGON INJ 1MG VIAL SC PRN (08:15)
[2020-03-02] MEDS ORDERED: GLUCOSE 4GM CHEW TABLET PO PRN (08:15)
[2020-03-02 08:16] LABS: ALBUMIN 2.2 GM/DL (3.2-5.2); ALT/SGPT 55 U/L (12-78); AMYLASE 38 U/L (25-115); BILIRUBIN,TOTAL 0.5 MG/DL (0.2-1.0); BLOOD UREA NITROGEN 22 MG/DL (7-18); CALCIUM LEVEL 8.1 MG/DL (8.8-10.2); CARBON DIOXIDE LEVEL 25 MEQ/L (21-32); CHLORIDE LEVEL 108 MEQ/L (98-107); CREATININE FOR GFR 0.93 MG/DL (0.55-1.30); FERRITIN 259 NG/ML (8-252); GLOMERULAR FILTRATION RATE > 60.0 (>45); GLUCOSE, FASTING 175 MG/DL (70-100); IRON (FE) 8 UG/DL (50-170); LIPASE 224 U/L (73-393); MAGNESIUM LEVEL 1.9 MG/DL (1.8-2.4); PERCENT SATURATION 4.5 % (13.2-45.0); PHOSPHORUS LEVEL 1.6 MG/DL (2.5-4.9); POTASSIUM SERUM 3.4 MEQ/L (3.5-5.1); SODIUM LEVEL 139 MEQ/L (136-145); TOTAL IRON BINDING CAPACITY 179 UG/DL (250-450); TOTAL PROTEIN 5.6 GM/DL (6.4-8.2)
[2020-03-02] MEDS: DULoxetine 30 MG CAP (CYMBALTA) PO SCH (08:39)
[2020-03-02 08:42] VITALS: BP 128/84
[2020-03-02] MEDS: TOPIRAMATE (TopAMAX) 100 MG TAB PO SCH (08:42)
[2020-03-02] MEDS: METOPROLOL TART 25 MG TABLET PO SCH (08:42)
[2020-03-02] MEDS ORDERED: POTASSIUM CHLORIDE 10 MEQ SR TABLET PO ONE (09:45)
[2020-03-02] MEDS ORDERED: POTASSIUM PHOSPHATE INJ 30 MMOL in D5W 500 ML IV ONE (12:00)
[2020-03-02] MEDS ORDERED: IRON SUCROSE 100 MG in NS 100 ML OVER 1 HR IV SCH (12:00)
[2020-03-02] MEDS ORDERED: HumaLOG INSULIN (NovoLOG) PER UNIT SC SCH ×2 (12:00→21:00)
[2020-03-02] MEDS ORDERED: FLAG500T PO (12:16)
[2020-03-02] MEDS ORDERED: FERR325T3 PO (12:16)
[2020-03-02] MEDS ORDERED: CIPR250T3 PO (12:16)
--- NOTE | 2020-03-02 18:00 | DS.PDOC ---
Discharge Summary General Date of Admission Feb 28, 2020 at 15:54 Date of Discharge 03/02/2020 Attending Physician: JUDIE ABARCA MD Discharge Summary PROCEDURES PERFORMED DURING STAY: None. ADMITTING DIAGNOSES: 1. Gallstone pancreatitis, cholecystitis, choledocholithiasis. DISCHARGE DIAGNOSES: 1. Gallstone pancreatitis, cholecystitis, choledocholithiasis. COMPLICATIONS/CHIEF COMPLAINT: Biliary Acute Pancreatitis. HISTORY OF PRESENT ILLNESS: 64-year-old female was admitted for acute pancreatitis secondary to choledocholithiasis and acute cholecystitis. Patient improved without surgical intervention because gallstone passed through the bile duct into the small bowel. This subsequently relieved pressure on her pancreatitis and gallstone leading to improvement in symptoms. Patient was also treated with significant IV fluids and IV antibiotics for pancreatitis/cholecystitis. Patient was evaluated by general surgery who delayed the cholecystectomy until pancreatitis has improved. The plan is for patient to follow with general surgery in the outpatient setting with eventual cholecystectomy in 4-6 weeks once the pancreatic inflammation has resolved. Patient has been tolerating a diet over the past 24 hours, comfortable in bed today, without any complaints, eager to go home. She denies any nausea, vomiting, diarrhea or constipation at this time. Abdominal pain is minimal. HOSPITAL COURSE: As above. DISCHARGE MEDICATIONS: Please see below. ALLERGIES: Please see below. PHYSICAL EXAMINATION: VITAL SIGNS: Please see below. GENERAL: No distress HEENT: Normocephalic, atraumatic, moist mucous membranes NECK: Supple CARDIOVASCULAR EXAMINATION: S1, S2, no murmurs RESPIRATORY EXAMINATION: Diminished in the bases, poor air movement ABDOMINAL EXAMINATION: Soft, mild tenderness, nondistended, positive bowel sounds EXTREMITIES: Range of motion intact SKIN: No rash NEUROLOGICAL EXAMINATION: Alert and oriented 3, no focal deficits PSYCHIATRIC EXAMINATION: Calm and cooperative LABORATORY DATA: Please see below. IMAGING: Consistent with acute pancreatitis, acute cholecystitis unlikely choledocholithiasis. PROGNOSIS: Fair ACTIVITY: As tolerated. DIET: Cardiac DISCHARGE PLAN: Follow with general surgery and PCP in 1-2 weeks DISPOSITION: Home. DISCHARGE INSTRUCTIONS: 1. As above. DISCHARGE CONDITION: Stable. TIME SPENT ON DISCHARGE: Greater than 30 minutes. Vital Signs/I&Os Vital Signs Date Time Temp Pulse Resp B/P (MAP) Pulse Ox O2 Delivery O2 Flow Rate FiO2 03/02/20 08:42 102 128/84 03/02/20 06:00 99.0 17 97 Room Air I&O- Last 24 Hours up to 6 AM 03/02/20 06:00 Intake Total 1850 ml Output Total 700 ml Balance 1150 ml Laboratory Data Labs 24H Laboratory Tests 2 03/02/20 00:21: Bedside Glucose (Misc Panel) 136H 03/02/20 06:08: Bedside Glucose (Misc Panel) 149H 03/02/20 07:30: Immature Granulocyte % (Auto) 0.5, Neutrophils (%) (Auto) 84.2H, Lymphocytes (%) (Auto) 7.1L, Monocytes (%) (Auto) 6.5H, Eosinophils (%) (Auto) 1.6, Basophils (%) (Auto) 0.1, Neutrophils # (Auto) 14.0H, Lymphocytes # (Auto) 1.2L, Monocytes # (Auto) 1.1H, Eosinophils # (Auto) 0.3, Basophils # (Auto) 0.0, Nucleated Red Blood Cells % (auto) 0.0, Anion Gap 6L, Glomerular Filtration Rate > 60.0, Calcium Level 8.1L, Phosphorus Level 1.6L, Magnesium Level 1.9, Iron Level 8L, Total Iron Binding Capacity 179L, Transferrin % Saturation 4.5L, Ferritin 259H, Total Bilirubin 0.5, Aspartate Amino Transf (AST/SGOT) 16, Alanine Aminotransferase (ALT/SGPT) 55, Alkaline Phosphatase 140H, Total Protein 5.6L, Albumin 2.2L, Albumin/Globulin Ratio 0.6L, Amylase Level 38, Lipase 224 03/02/20 11:36: Bedside Glucose (Misc Panel) 168H 03/02/20 17:01: Bedside Glucose (Misc Panel) 174H CBC/BMP Laboratory Tests 03/02/20 07:30 FSBS Laboratory Tests Test 03/02/20 00:21 03/02/20 06:08 03/02/20 11:36 03/02/20 17:01 Range/Units Bedside Glucose (Misc Panel) 136 149 168 174 80-115 MG/DL Discharge Medications Scheduled Aspirin/Caffeine (Junior Back-Body 500-32.5 mg) 1 Each Tablet, 2 TAB PO BID, (Reported) Baclofen (Baclofen) 20 Mg Tablet, 20 MG PO BID, (Reported) Ciprofloxacin HCl (Ciprofloxacin HCl) 250 Mg Tablet, 1 TAB PO BID Diazepam (Valium) 5 Mg Tab, 2.5 MG PO BID, (Reported) Duloxetine Hcl (Duloxetine HCl) 30 Mg Cap, 30 MG PO BID, (Reported) Ferrous Sulfate (Ferrous Sulfate) 325 Mg Tablet.dr, 1 TAB PO BID Lisinopril (Lisinopril) 20 Mg Tablet, 20 MG PO DAILY Loperamide HCl (Anti-Diarrheal) 2 Mg Capsule, 2 MG PO 2XW, (Reported) TUES AND THURS Loperamide HCl (Loperamide) 2 Mg Capsule, 2 MG PO ASDIRECTED, (Reported) AFTER LOOSE STOOL Metformin HCl (Metformin HCl) 850 Mg Tab, 850 MG PO BID, (Reported) Metoprolol Tartrate (Metoprolol Tartrate) 25 Mg Tablet, 25 MG PO BID Metronidazole (Flagyl) 500 Mg Tablet, 1 TAB PO BID Nortriptyline HCl (Nortriptyline HCl) 25 Mg Cap, 50 MG PO QHS, (Reported) Nortriptyline HCl (Nortriptyline HCl) 25 Mg Capsule, 25 MG PO DAILY, (Reported) Topiramate (Topamax) 100 Mg Tab, 100 MG PO DAILY, (Reported) Topiramate (Topamax) 100 Mg Tab, 150 MG PO QHS, (Reported) Scheduled PRN Oxycodone HCl/Acetaminophen (Oxycodone-Acetaminophen 10-325) 1 Each Tablet, 1 TAB PO Q12H PRN for PAIN, (Reported) Miscellaneous Medications [Patient Comment] , (Reported) TAKES MORNING MEDS AT 0200 AND BEDTIME MEDS AT 1400 Allergies Coded Allergies: TAPE (Unverified Allergy, Intermediate, RASH, 03/01/19) latex (Verified Allergy, Unknown, 03/01/19) nicotine (Verified Allergy, Unknown, 03/01/19) soap (Verified Allergy, Unknown, 03/01/19) lacosamide (Verified Adverse Reaction, Intermediate, PALPITATIONS, 03/01/19) JUDIE ABARCA MD Mar 02, 2020 18:01
[2020-03-03] MEDS ORDERED: IRON SUCROSE 100MG 5ML VIAL (J1756 PER 1MG) IV SCH (09:00)
[2020-03-03 12:15] VITALS: BP 125/86
[2020-03-03 12:45] VITALS: BP 125/82
[2020-03-03 13:15] VITALS: BP 144/89
[2020-03-03 14:15] VITALS: BP 154/94
[2020-03-03 15:15] VITALS: BP 155/95
== END 2020-03-02 18:23 | disposition home or self-care (01) | DRG 282 ==
LOC: EDBD 12:45 → M ED 12:45 → M ED INP 15:54 → M PCU 18:53 → M MSPAV 02-29 16:05
PROVIDERS: ADMIT Family Medicine; ATTEND Internal Medicine
DX: K85.10 Biliary acute pancreatitis without necrosis or infection (principal); K80.62 Calculus of gallbladder and bile duct with acute cholecystitis without obstruction; I11.9 Hypertensive heart disease without heart failure; F07.81 Postconcussional syndrome; E66.01 Morbid (severe) obesity due to excess calories; Z68.43 Body mass index [BMI] 50.0-59.9, adult; F32.9 Major depressive disorder, single episode, unspecified; E11.9 Type 2 diabetes mellitus without complications; E78.5 Hyperlipidemia, unspecified; G47.33 Obstructive sleep apnea (adult) (pediatric); K57.90 Diverticulosis of intestine, part unspecified, without perforation or abscess without bleeding; M79.7 Fibromyalgia; G89.4 Chronic pain syndrome; F43.10 Post-traumatic stress disorder, unspecified; Z62.810 Personal history of physical and sexual abuse in childhood; Z91.419 Personal history of unspecified adult abuse; Z96.652 Presence of left artificial knee joint; Z87.891 Personal history of nicotine dependence; Z88.8 Allergy status to other drugs, medicaments and biological substances; Z79.84 Long term (current) use of oral hypoglycemic drugs; Z79.899 Other long term (current) drug therapy; Z20.828 Contact with and (suspected) exposure to other viral communicable diseases; Z91.040 Latex allergy status; Z91.048 Other nonmedicinal substance allergy status

== ENCOUNTER → 2020-04-04 | Outpatient (REF) | payer OTHER ==
[~2020-04-04] MED LIST changes: +BACL1TAB9 PO; +CIPR250T3 PO; +FERR325T3 PO; +FLAG500T PO; +FLUTISP; +GABA-282 PO; -GABA-843 PO; +GABA-845 PO; +KRIL300C2 PO; -LISI-538 PO; +LISI20TA33 PO; +LOPE1CAP5 PO; +VITA200020 PO
[2020-04-04 13:15] LABS: HEMATOCRIT 35.3 % (36.0-47.0); HEMOGLOBIN 10.6 g/dl (12.0-15.5); MEAN CORPUSCULAR HEMOGLOBIN 26.4 pg (27.0-33.0); PLATELET COUNT, AUTOMATED 324 10^3/uL (150-450); RED BLOOD COUNT 4.01 10^6/uL (4.00-5.40); WHITE BLOOD COUNT 13.5 10^3/uL (4.0-10.0)
[2020-04-04 13:31] LABS: INR 0.89; PARTIAL THROMBOPLASTIN TIME 29.7 SECONDS (24.2-38.5); PROTHROMBIN TIME 12.2 SECONDS (12.5-14.3)
[2020-04-04 13:47] LABS: HEMOGLOBIN A1c 6.8 %
[2020-04-04 13:51] LABS: ALBUMIN 3.4 GM/DL (3.2-5.2); ALT/SGPT 21 U/L (12-78); BILIRUBIN,TOTAL 0.4 MG/DL (0.2-1.0); BLOOD UREA NITROGEN 21 MG/DL (7-18); CALCIUM LEVEL 9.3 MG/DL (8.8-10.2); CARBON DIOXIDE LEVEL 27 MEQ/L (21-32); CHLORIDE LEVEL 105 MEQ/L (98-107); CREATININE FOR GFR 0.83 MG/DL (0.55-1.30); GLOMERULAR FILTRATION RATE > 60.0 (>45); GLUCOSE, FASTING 140 MG/DL (70-100); POTASSIUM SERUM 4.5 MEQ/L (3.5-5.1); SODIUM LEVEL 141 MEQ/L (136-145); TOTAL PROTEIN 7.5 GM/DL (6.4-8.2)
== END ==
LOC: M SFHCADAM 10:45
PROVIDERS: ATTEND Family Medicine
DX: Z01.818 Encounter for other preprocedural examination (principal); I11.9 Hypertensive heart disease without heart failure; D63.8 Anemia in other chronic diseases classified elsewhere; E11.9 Type 2 diabetes mellitus without complications

== ENCOUNTER → 2020-04-11 | Outpatient (CLI) | payer OTHER | LOC: M LABSMTC 11:23 | PROVIDERS: ATTEND Anesthesiology | DX: Z01.812 Encounter for preprocedural laboratory examination (principal); Z20.822 Contact with and (suspected) exposure to COVID-19 ==

== ENCOUNTER 2020-04-16 11:22 | Day surgery (SDC) | payer OTHER ==
[~2020-04-16] VITALS: Ht 157.5 cm; Wt 124.7 kg
[~2020-04-16 11:22] MED LIST changes: +KETOROLAC 60MG 2ML VIAL As Ordered ONE; +LIDOCAINE 2% 100MG/5ML SDV (FOR ANES.) As Ordered ONE; +LR 1,000 ML IV ONE; +MIDAZOLAM INJ 2MG/2ML VIAL (J2250 PER 1MG) As Ordered ONE; +ONDANSETRON 4MG/2ML VIAL As Ordered ONE; +PHENYLephrine 500MCG 5ML (100MCG/ML) SYRINGE As Ordered ONE; +ROCURONIUM BROMIDE 50 MG/5 ML VIAL As Ordered ONE; +SUGAMMADEX SODIUM 500 MG/5 ML VIAL (BRIDION) As Ordered ONE; +cefoTEtan DISODIUM 2 GM in D5W MINI-BAG PLUS 50 ML IV ONE; +dexameTHASONE 4 MG/ML 1ML VIAL (J1100 PER 1MG) As Ordered ONE; +ePHEDrine SULFATE 25 MG/5 ML(5MG/ML) SYRINGE As Ordered ONE; +fentaNYL 250 MCG/5 ML INJECTION (J3010) As Ordered ONE; +propofoL 200 MG/20 ML VIAL As Ordered ONE
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
--- OUTSIDE RECORDS SUMMARY | 2020-04-16 11:27 | CCD ---
Author Author [facility] Organization [facility] Address Unknown Phone Unavailable Care Team Providers Care Scale Installer Name Role Phone Kelvin Chavez MD Unavailable Unavailable Kelvin Chavez MD Unavailable Unavailable Kelvin Chavez MD Unavailable Unavailable Kelvin Chavez MD Unavailable Unavailable Kelvin Chavez MD Unavailable Unavailable Kelvin Chavez MD Unavailable Unavailable Kelvin Chavez MD Unavailable Unavailable Kelvin Chavez MD Unavailable Unavailable Kelvin Chavez MD Unavailable Unavailable Kelvin Chavez MD Unavailable Unavailable Kelvin Chavez MD Unavailable Unavailable Kelvin Chavez MD Unavailable Unavailable Kelvin Chavez MD Unavailable Unavailable Kelvin Chavez MD Unavailable Unavailable Kelvin Chavez MD Unavailable Unavailable Kelvin Chavez MD Unavailable Unavailable Kelvin Chavez MD Unavailable Unavailable Kelvin Chavez MD Unavailable Unavailable Kelvin Chavez MD Unavailable Unavailable Kelvin Chavez MD Unavailable Unavailable Kelvin Chavez MD Unavailable Unavailable Kelvin Chavez MD Unavailable Unavailable Kelvin Chavez MD Unavailable Unavailable Kelvin Chavez MD Unavailable Unavailable Kelvin Chavez MD Unavailable Unavailable Kelvin Chavez MD Unavailable Unavailable Kelvin Chavez MD Unavailable Unavailable Kelvin Chavez MD Unavailable Unavailable Kelvin Chavez MD Unavailable Unavailable Kelvin Chavez MD Unavailable Unavailable Kelvin Chavez MD Unavailable Unavailable Kelvin Chavez MD Unavailable Unavailable Kelvin Chavez MD Unavailable Unavailable Kelvin Chavez MD Unavailable Unavailable Kelvin Chavez MD Unavailable Unavailable Kelvin Chavez MD Unavailable Unavailable Kelvin Chavez MD Unavailable Unavailable Kelvin Chavez MD Unavailable Unavailable Kelvin Chavez MD Unavailable Unavailable Kelvin Chavez MD Unavailable Unavailable Kelvin Chavez MD Unavailable Unavailable Kelvin Chavez MD Unavailable Unavailable Kelvin Chavez MD Unavailable Unavailable Kelvin Chavez MD Unavailable Unavailable Kelvin Chavez MD Unavailable Unavailable Kelvin Chavez MD Unavailable Unavailable Kelvin Chavez MD Unavailable Unavailable Kelvin Chavez MD Unavailable Unavailable Kelvin Chavez MD Unavailable Unavailable Kelvin Chavez MD Unavailable Unavailable Kelvin Chavez MD Unavailable Unavailable Kelvin Chavez MD Unavailable Unavailable Kelvin Chavez MD Unavailable Unavailable Kelvin Chavez MD Unavailable Unavailable Kelvin Chavez MD Unavailable Unavailable Kelvin Chavez MD Unavailable Unavailable Kelvin Chavez MD Unavailable Unavailable Kelvin Chavez MD Unavailable Unavailable Trickey, J Rox PA Unavailable Unavailable Trickey, J Rox PA Unavailable Unavailable Trickey, J Rox PA Unavailable Unavailable Trickey, J Rox PA Unavailable Unavailable Trickey, J Rox PA Unavailable Unavailable Trickey, J Rox PA Unavailable Unavailable Trickey, J Rox PA Unavailable Unavailable Trickey, J Rox PA Unavailable Unavailable Trickey, J Rox PA Unavailable Unavailable Trickey, J Rox PA Unavailable Unavailable Trickey, J Rox PA Unavailable Unavailable Trickey, J Rox PA Unavailable Unavailable Trickey, J Rox PA Unavailable Unavailable Trickey, J Rox PA Unavailable Unavailable Trickey, J Rox PA Unavailable Unavailable Trickey, J Rox PA Unavailable Unavailable Trickey, J Rox PA Unavailable Unavailable Trickey, J Rox PA Unavailable Unavailable Trickey, J Rox PA Unavailable Unavailable Trickey, J Rox PA Unavailable Unavailable Trickey, J Rox PA Unavailable Unavailable Trickey, J Rox PA Unavailable Unavailable Trickey, J Rox PA Unavailable Unavailable Trickey, J Rox PA Unavailable Unavailable Trickey, J Rox PA Unavailable Unavailable Trickey, J Rox PA Unavailable Unavailable Trickey, J Rox PA Unavailable Unavailable Trickey, J Rox PA Unavailable Unavailable Trickey, J Rox PA Unavailable Unavailable Trickey, J Rox PA Unavailable Unavailable Trickey, J Rox PA Unavailable Unavailable Trickey, J Rox PA Unavailable Unavailable Trickey, J Rox PA Unavailable Unavailable Trickey, J Rox PA Unavailable Unavailable Trickey, J Rox PA Unavailable Unavailable Trickey, J Rox PA Unavailable Unavailable Trickey, J Rox PA Unavailable Unavailable Trickey, J Rox PA Unavailable Unavailable Trickey, J Rox PA Unavailable Unavailable Trickey, J Rox PA Unavailable Unavailable Trickey, J Rox PA Unavailable Unavailable Trickey, J Rox PA Unavailable Unavailable Trickey, J Rox PA Unavailable Unavailable Trickey, J Rox PA Unavailable Unavailable Trickey, J Rox PA Unavailable Unavailable Trickey, J Rox PA Unavailable Unavailable Trickey, J Rox PA Unavailable Unavailable Trickey, J Rox PA Unavailable Unavailable Fons, M Chasity PRODUCT DEVELOPMENT ENGINEER Unavailable Unavailable Fons, M Chasity PRODUCT DEVELOPMENT ENGINEER Unavailable Unavailable Fons, M Chasity PRODUCT DEVELOPMENT ENGINEER Unavailable Unavailable Fons, M Chasity PRODUCT DEVELOPMENT ENGINEER Unavailable Unavailable Fons, M Chasity PRODUCT DEVELOPMENT ENGINEER Unavailable Unavailable Fons, M Chasity PRODUCT DEVELOPMENT ENGINEER Unavailable Unavailable Fons, M Chasity PRODUCT DEVELOPMENT ENGINEER Unavailable Unavailable Fons, M Chasity PRODUCT DEVELOPMENT ENGINEER Unavailable Unavailable Fons, M Chasity PRODUCT DEVELOPMENT ENGINEER Unavailable Unavailable Fons, M Chasity PRODUCT DEVELOPMENT ENGINEER Unavailable Unavailable Fons, M Chasity PRODUCT DEVELOPMENT ENGINEER Unavailable Unavailable Fons, M Chasity PRODUCT DEVELOPMENT ENGINEER Unavailable Unavailable Fons, M Chasity PRODUCT DEVELOPMENT ENGINEER Unavailable Unavailable Fons, M Chasity PRODUCT DEVELOPMENT ENGINEER Unavailable Unavailable Fons, M Chasity PRODUCT DEVELOPMENT ENGINEER Unavailable Unavailable Fons, M Chasity PRODUCT DEVELOPMENT ENGINEER Unavailable Unavailable Fons, M Chasity PRODUCT DEVELOPMENT ENGINEER Unavailable Unavailable Fons, M Chasity PRODUCT DEVELOPMENT ENGINEER Unavailable Unavailable Fons, M Chasity PRODUCT DEVELOPMENT ENGINEER Unavailable Unavailable Fons, M Chasity PRODUCT DEVELOPMENT ENGINEER Unavailable Unavailable Fons, M Chasity PRODUCT DEVELOPMENT ENGINEER Unavailable Unavailable Fons, M Chasity PRODUCT DEVELOPMENT ENGINEER Unavailable Unavailable Fons, M Chasity PRODUCT DEVELOPMENT ENGINEER Unavailable Unavailable Fons, M Chasity PRODUCT DEVELOPMENT ENGINEER Unavailable Unavailable Fons, M Chasity PRODUCT DEVELOPMENT ENGINEER Unavailable Unavailable Fons, M Chasity PRODUCT DEVELOPMENT ENGINEER Unavailable Unavailable Fons, M Chasity PRODUCT DEVELOPMENT ENGINEER Unavailable Unavailable Fons, M Chasity PRODUCT DEVELOPMENT ENGINEER Unavailable Unavailable Fons, M Chasity PRODUCT DEVELOPMENT ENGINEER Unavailable Unavailable Fons, M Chasity PRODUCT DEVELOPMENT ENGINEER Unavailable Unavailable Fons, M Chasity PRODUCT DEVELOPMENT ENGINEER Unavailable Unavailable Fons, M Chasity PRODUCT DEVELOPMENT ENGINEER Unavailable Unavailable Fons, M Chasity PRODUCT DEVELOPMENT ENGINEER Unavailable Unavailable Fons, M Chasity PRODUCT DEVELOPMENT ENGINEER Unavailable Unavailable Fons, M Chasity PRODUCT DEVELOPMENT ENGINEER Unavailable Unavailable Fons, M Chasity PRODUCT DEVELOPMENT ENGINEER Unavailable Unavailable Fons, M Chasity PRODUCT DEVELOPMENT ENGINEER Unavailable Unavailable Fons, M Chasity PRODUCT DEVELOPMENT ENGINEER Unavailable Unavailable Fons, M Chasity PRODUCT DEVELOPMENT ENGINEER Unavailable Unavailable Fons, M Chasity PRODUCT DEVELOPMENT ENGINEER Unavailable Unavailable Fons, M Chasity PRODUCT DEVELOPMENT ENGINEER Unavailable Unavailable Fons, M Chasity PRODUCT DEVELOPMENT ENGINEER Unavailable Unavailable Fons, M Chasity PRODUCT DEVELOPMENT ENGINEER Unavailable Unavailable Fons, M Chasity PRODUCT DEVELOPMENT ENGINEER Unavailable Unavailable Fons, M Chasity PRODUCT DEVELOPMENT ENGINEER Unavailable Unavailable Fons, M Chasity PRODUCT DEVELOPMENT ENGINEER Unavailable Unavailable Fons, M Chasity PRODUCT DEVELOPMENT ENGINEER Unavailable Unavailable Fons, M Chasity PRODUCT DEVELOPMENT ENGINEER Unavailable Unavailable Fons, M Chasity PRODUCT DEVELOPMENT ENGINEER Unavailable Unavailable Fons, M Chasity PRODUCT DEVELOPMENT ENGINEER Unavailable Unavailable Fons, M Chasity PRODUCT DEVELOPMENT ENGINEER Unavailable Unavailable Fons, M Chasity PRODUCT DEVELOPMENT ENGINEER Unavailable Unavailable Fons, M Chasity PRODUCT DEVELOPMENT ENGINEER Unavailable Unavailable Fons, M Chasity PRODUCT DEVELOPMENT ENGINEER Unavailable Unavailable Fons, M Chasity PRODUCT DEVELOPMENT ENGINEER Unavailable Unavailable Re-disclosure Warning The records that you are about to access may contain information from federally-assisted alcohol or drug abuse programs. If such information is present, then the following federally mandated warning applies: This information has been disclosed to you from records protected by federal confidentiality rules (42 CFR part 2). The federal rules prohibit you from making any further disclosure of this information unless further disclosure is expressly permitted by the written consent of the person to whom it pertains or as otherwise permitted by 42 CFR part 2. A general authorization for the release of medical or other information is NOT sufficient for this purpose. The Federal rules restrict any use of the information to criminally investigate or prosecute any alcohol or drug abuse patient.The records that you are about to access may contain highly sensitive health information, the redisclosure of which is protected by Article 27-F of the [facility] Public Health law. If you continue you may have access to information: Regarding HIV / AIDS; Provided by facilities licensed or operated by the [facility] Office of Mental Health; or Provided by the [facility] Office for People With Developmental Disabilities. If such information is present, then the following [facility] mandated warning applies: This information has been disclosed to you from confidential records which are protected by state law. State law prohibits you from making any further disclosure of this information without the specific written consent of the person to whom it pertains, or as otherwise permitted by law. Any unauthorized further disclosure in violation of state law may result in a fine or penitentiary sentence or both. A general authorization for the release of medical or other information is NOT sufficient authorization for further disc losure. Allergies and Adverse Reactions Type Description Substance Reaction Status Data Source(s ) Propensity to adverse reactions LACOSAMIDE lacosamide Acti ve [facility] zest soap zest soap zest soap Rash Active eCW1 ([facility]) tape tape tape Rash Active eCW1 ([facility]) Vimpat Vimpat lacosamide 10 MG/ML Oral Solution [Vimpat] Palp itations Active eCW1 ([facility]) wool wool wool rash Active eCW1 ([facility]) berenice berenice berenice violence Active eCW1 ([facility]) nicoderm patch nicoderm patch nicoderm patch Rash Active eC W1 ([facility]) zest soap zest soap zest soap Rash Active eCW1 ([facility]) tape tape tape Rash Active eCW1 ([facility]) Vimpat Vimpat lacosamide 10 MG/ML Oral Solution [Vimpat] Palp itations Active eCW1 ([facility]) wool wool wool rash Active eCW1 ([facility]) berenice berenice berenice violence Active eCW1 ([facility]) nicoderm patch nicoderm patch nicoderm patch Rash Active eC W1 ([facility]) tape tape tape Rash Active eCW1 ([facility]) Vimpat Vimpat lacosamide 10 MG/ML Oral Solution [Vimpat] Palp itations Active eCW1 ([facility]) wool wool wool rash Active eCW1 ([facility]) berenice berenice berenice violence Active eCW1 ([facility]) nicoderm patch nicoderm patch nicoderm patch Rash Active eC W1 ([facility]) zest soap zest soap zest soap Rash Active eCW1 ([facility]) tape tape tape Rash Active eCW1 ([facility]) Vimpat Vimpat lacosamide 10 MG/ML Oral Solution [Vimpat] Palp itations Active eCW1 ([facility]) wool wool wool rash Active eCW1 ([facility]) berenice berenice berenice violence Active eCW1 ([facility]) nicoderm patch nicoderm patch nicoderm patch Rash Active eC W1 ([facility]) zest soap zest soap zest soap Rash Active eCW1 ([facility]) Encounters Encounter Providers Location Date Indications Data Source(s ) Unknown [address] [facility] [id number] 04/06/2020 12:00:00 AM EST eCW1 ([facility]) Outpatient [address] [facility] [id number] 04/04/2020 12:00:00 AM EST eCW1 ([facility]) Unknown [address] [facility] [id number] 03/27/2020 12:00:00 AM EST eCW1 ([facility]) (TCM) Transition of Care Visit [address] [place] [address] 03/14/2020 12:00:00 AM EST eCW1 (Counts include 234 beds at the [facility]) Unknown [address] [facility] [id number] 03/13/2020 12:00:00 AM EST eCW1 ([facility]) Unknown [address] [facility] [address] 03/07/2020 12:00:00 AM EST eCW1 ([facility]) Unknown [address] [facility] [id number] 03/04/2020 12:00:00 AM EST eCW1 ([facility]) Unknown [address] [facility] [place] [address] 02/26/2020 12:00:00 AM EST eCW1 ([facility]) Unknown [address] [facility] [place] [address] 02/19/2020 12:00:00 AM EST eCW1 ([facility]) Unknown [address] [facility] [id number] 02/04/2020 12:00:00 AM EST eCW1 ([facility]) Outpatient Attender: Kelvin Chavez MD [email or web address] 12/24 12:00:00 AM EST [facility] Unknown [address] [facility] [id number] 01/03/2020 12:00:00 AM EST eCW1 ([facility]) Unknown [address] [facility] [address] 01/01/2020 12:00:00 AM EST eCW1 ([facility]) Unknown [address] [facility] [address] 12/27/2019 12:00:00 AM EST eCW1 ([facility]) Outpatient [address] [facility] [id number] 12/21/2019 12:00:00 AM EDT eCW1 ([facility]) Outpatient Attender: Rox Ndiaye [facility] 12/11/2019 02:00:00 PM EDT MEDENT ([facility] STEPHIE Carias) (PN Proc 60) Pain Procedure 60 [address] [place] [address] 12/07/2019 12:00:00 AM EDT eCW1 ([facility]) Unknown [address] [facility] [id number] 12/04/2019 12:00:00 AM EDT eCW1 ([facility]) Outpatient [address] [facility] [id number] 11/28/2019 12:00:00 AM EDT eCW1 ([facility]) [place] [address] [facility] [address] 11/27/2019 12:00:00 AM EDT eCW1 ([facility]) [place] [address] [facility] [address] 11/22/2019 12:00:00 AM EDT eCW1 ([facility]) [place] [address] [facility] [address] 11/14/2019 12:00:00 AM EDT eCW1 ([facility]) [place] [address] [facility] [address] 11/14/2019 12:00:00 AM EDT eCW1 ([facility]) [place] [address] [facility] [address] 11/14/2019 12:00:00 AM EDT eCW1 ([facility]) [facility] [address] [place] [address] 08/28/2019 12:00:00 AM EDT eCW1 ([facility]) [place] [address] [facility] [address] 08/15/2019 12:00:00 AM EDT eCW1 ([facility]) [place] [address] [facility] [address] 08/15/2019 12:00:00 AM EDT eCW1 ([facility]) [facility] [place] [address] [facility] [address] 07/19/2019 12:00:00 AM EDT eCW1 ([facility]) [facility] [address] [facility] [address] 07/19/2019 12:00:00 AM EDT eCW1 ([facility]) [facility] [address] [facility] [address] 07/13/2019 12:00:00 AM EDT eCW1 ([facility]) [facility] [place] [address] [facility] [address] 07/10/2019 12:00:00 AM EDT eCW1 ([facility]) [facility] [address] [place] [address] 06/26/2019 12:00:00 AM EDT eCW1 ([facility]) [facility] [address] [place] [address] 06/19/2019 12:00:00 AM EDT eCW1 ([facility]) [facility] [place]ni [address] [facility] [address] 06/15/2019 12:00:00 AM EDT eCW1 ([facility]) [facility] [place] [address] [facility] [address] 06/13/2019 12:00:00 AM EDT eCW1 ([facility]) [facility] [place] [address] [facility] [address] 05/23/2019 12:00:00 AM EDT eCW1 ([facility]) [facility] [place] [address] [facility] [address] 05/20/2019 12:00:00 AM EDT eCW1 ([facility]) [facility] [place]want [address] [facility] [address] 05/15/2019 12:00:00 AM EDT eCW1 ([facility]) [facility] [place] [address] [facility] [address] 05/13/2019 12:00:00 AM EDT eCW1 ([facility]) [facility] [place] [address] [facility] [address] 05/13/2019 12:00:00 AM EDT eCW1 ([facility]) [facility] [place] [address] [facility] [address] 05/02/2019 12:00:00 AM EDT eCW1 ([facility]) [facility] [address] [place] [address] 04/19/2019 12:00:00 AM EST eCW1 ([facility]) [facility] [address] [place] [address] [address] 04/19/2019 12:00:00 AM EST eCW1 ([facility]) [facility] [address] [place] [address] [address] 04/03/2019 12:00:00 AM EST eCW1 ([facility] [address] [address] 03/20/2019 12:00:00 AM EST [facility]CW1 [facility] Outpatient Referrer: Chasity CASTILLO 03/15/2019 07:14:[address] [facility] [address] [address] 03/14/2019 12:00:00 AM EST eCW1 ([facility]) [address] [address] 03/07/2019 12:00:00 AM EST eCW1 [facility]) [address] [address] 03/06/2019 12:00:00 AM EST eCW1 ([facility]) [address] [address] 03/01/2019 12:00:00 AM EST eCW1 ([facility]) [address] [address] 02/27/2019 12:00:00 AM EST eCW1 ([facility]) [address] [address] 02/23/2019 12:00:00 AM EST eCW1 ([facility]) [address] [address] 02/16/2019 12:00:00 AM EST eCW1 ([facility]) Medications Medication Brand Name Start Date Product Form Dose Route Admi nistrative Instructions Pharmacy Instructions Status Indications Reaction Description Data Source(s) Acetaminophen 325 MG / Oxycodone Hydroch loride 10 MG Oral Tablet [Percocet] Percocet 10-325 MG Percocet 10-325 MG 03/27/2020 12:00:00 AM EST 1.0 {tablet_as_needed} active Percocet 10-3 25 MG eCW1 ([facility]) Acetaminophen 325 MG / Oxycodone Hydroch loride 10 MG Oral Tablet [Percocet] Percocet 10-325 MG Percocet 10-325 MG 03/27/2020 12:00:00 AM EST 1.0 {tablet_as_needed} active Percocet 10-3 25 MG eCW1 ([facility]) Acetaminophen 325 MG / Oxycodone Hydroch loride 10 MG Oral Tablet [Percocet] Percocet 10-325 MG Percocet 10-325 MG 03/27/2020 12:00:00 AM EST 1.0 {tablet_as_needed} active Percocet 10-3 25 MG eCW1 ([facility]) Acetaminophen 325 MG / Oxycodone Hydroch loride 10 MG Oral Tablet [Percocet] Percocet 10-325 MG Percocet 10-325 MG 02/21/2020 12:00:00 AM EST 1.0 {tablet_as_needed} active Percocet 10-3 25 MG eCW1 ([facility]) Acetaminophen 325 MG / Oxycodone Hydroch loride 10 MG Oral Tablet [Percocet] Percocet 10-325 MG Percocet 10-325 MG 02/21/2020 12:00:00 AM EST 1.0 {tablet_as_needed} active Percocet 10-3 25 MG eCW1 ([facility]) Acetaminophen 325 MG / Oxycodone Hydroch loride 10 MG Oral Tablet [Percocet] Percocet 10-325 MG Percocet 10-325 MG 02/21/2020 12:00:00 AM EST 1.0 {tablet_as_needed} active Percocet 10-3 25 MG eCW1 ([facility]) Acetaminophen 325 MG / Oxycodone Hydroch loride 10 MG Oral Tablet [Percocet] Percocet 10-325 MG Percocet 10-325 MG 02/21/2020 12:00:00 AM EST 1.0 {tablet_as_needed} active Percocet 10-3 25 MG eCW1 ([facility]) Acetaminophen 325 MG / Oxycodone Hydroch loride 10 MG Oral Tablet [Percocet] Percocet 10-325 MG Percocet 10-325 MG 02/21/2020 12:00:00 AM EST 1.0 {tablet_as_needed} active Percocet 10-3 25 MG eCW1 ([facility]) Acetaminophen 325 MG / Oxycodone Hydroch loride 10 MG Oral Tablet [Percocet] Percocet 10-325 MG Percocet 10-325 MG 02/21/2020 12:00:00 AM EST 1.0 {tablet_as_needed} active Percocet 10-3 25 MG eCW1 ([facility]) gabapentin 400 MG Oral Capsule gabapentin (NEURONTIN) 400 MG capsule gabapentin (NEURONTIN) 400 MG capsule 01/15/2020 12:00:00 AM EST active [facility] Metoprolol Tartrate 25 MG Oral Tablet me toprolol tartrate (LOPRESSOR) 25 MG tablet metoprolol tartrate (LOPRESSOR) 25 MG tablet 01/05/2020 12:0 0:00 AM EST active TK 1 T PO BID WF [facility] Diazepam 5 MG Oral Tablet diazepam (VALIUM) 5 MG table t diazepam (VALIUM) 5 MG tablet 01/04/2020 12:00:00 AM EST active TK 1/2 T PO BID [facility] Acetaminophen 325 MG / Oxycodone Hydroch loride 10 MG Oral Tablet [Percocet] Percocet 10-325 MG Percocet 10-325 MG 01/02/2020 12:00:00 AM EST 1.0 {tablet_as_needed} active Percocet 10-3 25 MG eCW1 ([facility]) Acetaminophen 325 MG / Oxycodone Hydroch loride 10 MG Oral Tablet [Percocet] Percocet 10-325 MG Percocet 10-325 MG 01/02/2020 12:00:00 AM EST 1.0 {tablet_as_needed} active Percocet 10-3 25 MG eCW1 ([facility]) Acetaminophen 325 MG / Oxycodone Hydroch loride 10 MG Oral Tablet [Percocet] Percocet 10-325 MG Percocet 10-325 MG 01/02/2020 12:00:00 AM EST 1.0 {tablet_as_needed} active Percocet 10-3 25 MG eCW1 ([facility]) Acetaminophen 325 MG / Oxycodone Hydroch loride 10 MG Oral Tablet oxyCODONE- acetaminophen (PERCOCET) 10-325 MG per tablet oxyCODONE-acetaminophen (PERCOCET) 10-325 MG per tablet 01/02/2020 12:00:00 AM EST active TK 1 T PO Q 12 H NEEDED. MDD 2 30 DAYS [facility] Lisinopril 20 MG Oral Tablet lisinopril (PRINIVIL,ZEST RIL) 20 MG tablet lisinopril (PRINIVIL,ZESTRIL) 20 MG tablet 01/01/2020 12:00:00 AM EST active TK 1 T PO QD [facility] Nortriptyline 25 MG Oral Capsule nortriptyline (PAMELO R) 25 MG capsule nortriptyline (PAMELOR) 25 MG capsule 01/01/2020 12:00:00 AM EST active TK 1 C PO QAM AND 2 CS Q NIGHT S [facility] Baclofen 20 MG Oral Tablet baclofen (LIORESAL) 20 MG t ablet baclofen (LIORESAL) 20 MG tablet 12/27/2019 12:00:00 AM EST active TK 1 T PO BID PRN [facility] topiramate 100 MG Oral Tablet topiramate (TOPAMAX) 100 MG tablet topiramate (TOPAMAX) 100 MG tablet 12/18/2019 12:00:00 AM EDT active [facility] duloxetine 30 MG Delayed Release Oral Ca psule DULoxetine (CYMBALTA) 30 MG capsule DULoxetine (CYMBALTA) 30 MG capsule 11/26/2019 12:00:00 AM EDT active TK 1 C PO BID [facility] Metformin hydrochloride 850 MG Oral Tablet metFORMIN ( GLUCOPHAGE) 850 MG tablet metFORMIN (GLUCOPHAGE) 850 MG tablet 11/21/2019 12:00:00 AM EDT active TK 1 T PO BID [facility] Acetaminophen 325 MG / Oxycodone Hydroch loride 10 MG Oral Tablet [Percocet] Percocet 10-325 MG Percocet 10-325 MG 05/15/2019 12:00:00 AM EDT 1.0 {tablet_as_needed} active Percocet 10-3 25 MG eCW1 ([facility]) Acetaminophen 325 MG / Oxycodone Hydroch loride 10 MG Oral Tablet [Percocet] Percocet 10-325 MG Percocet 10-325 MG 05/15/2019 12:00:00 AM EDT 1.0 {tablet_as_needed} active Percocet 10-3 25 MG eCW1 ([facility]) Acetaminophen 325 MG / Oxycodone Hydroch loride 10 MG Oral Tablet [Percocet] Percocet 10-325 MG Percocet 10-325 MG 05/15/2019 12:00:00 AM EDT 1.0 {tablet_as_needed} active Percocet 10-3 25 MG eCW1 ([facility]) Acetaminophen 325 MG / Oxycodone Hydroch loride 10 MG Oral Tablet [Percocet] Percocet 10-325 MG Percocet 10-325 MG 05/15/2019 12:00:00 AM EDT 1.0 {tablet_as_needed} active Percocet 10-3 25 MG eCW1 ([facility]) Acetaminophen 325 MG / Oxycodone Hydroch loride 10 MG Oral Tablet [Percocet] Percocet 10-325 MG Percocet 10-325 MG 05/15/2019 12:00:00 AM EDT 1.0 {tablet_as_needed} active Percocet 10-3 25 MG eCW1 ([facility]) Acetaminophen 325 MG / Oxycodone Hydroch loride 10 MG Oral Tablet [Percocet] Percocet 10-325 MG Percocet 10-325 MG 05/15/2019 12:00:00 AM EDT 1.0 {tablet_as_needed} active Percocet 10-3 25 MG eCW1 ([facility]) Acetaminophen 325 MG / Oxycodone Hydroch loride 10 MG Oral Tablet [Percocet] Percocet 10-325 MG Percocet 10-325 MG 05/15/2019 12:00:00 AM EDT 1.0 {tablet_as_needed} active Percocet 10-3 25 MG eCW1 ([facility]) Acetaminophen 325 MG / Oxycodone Hydroch loride 10 MG Oral Tablet [Percocet] Percocet 10-325 MG Percocet 10-325 MG 05/15/2019 12:00:00 AM EDT 1.0 {tablet_as_needed} active Percocet 10-3 25 MG eCW1 ([facility]) Acetaminophen 325 MG / Oxycodone Hydroch loride 10 MG Oral Tablet [Percocet] Percocet 10-325 MG Percocet 10-325 MG 05/15/2019 12:00:00 AM EDT 1.0 {tablet_as_needed} active Percocet 10-3 25 MG eCW1 ([facility]) Acetaminophen 325 MG / Oxycodone Hydroch loride 10 MG Oral Tablet [Percocet] Percocet 10-325 MG Percocet 10-325 MG 05/15/2019 12:00:00 AM EDT active 1 tablet as needed eCW1 ([facility]) Acetaminophen 325 MG / Oxycodone Hydroch loride 10 MG Oral Tablet [Percocet] Percocet 10-325 MG Percocet 10-325 MG 05/15/2019 12:00:00 AM EDT 1.0 {tablet_as_needed} active Percocet 10-3 25 MG eCW1 ([facility]) Acetaminophen 325 MG / Oxycodone Hydroch loride 10 MG Oral Tablet [Percocet] Percocet 10-325 MG Percocet 10-325 MG 05/15/2019 12:00:00 AM EDT 1.0 {tablet_as_needed} active Percocet 10-3 25 MG eCW1 ([facility]) Acetaminophen 325 MG / Oxycodone Hydroch loride 10 MG Oral Tablet [Percocet] Percocet 10-325 MG Percocet 10-325 MG 05/15/2019 12:00:00 AM EDT active 1 tablet as needed eCW1 ([facility]) Acetaminophen 325 MG / Oxycodone Hydroch loride 10 MG Oral Tablet [Percocet] Percocet 10-325 MG Percocet 10-325 MG 05/15/2019 12:00:00 AM EDT 1.0 {tablet_as_needed} active Percocet 10-3 25 MG eCW1 ([facility]) Lisinopril 20 MG Oral Tablet Lisinopril 20 MG 03/14/2019 12:00:00 A M EST 1.0 {tablet} active Lisinopril 20 MG eCW1 ( [facility]) Metoprolol Tartrate 25 MG Oral Tablet Metoprolol Tartrate 25 MG 03/14/2019 12:00:00 AM EST 1.0 {tablet_with_food} active Metoprolol Tartrate 25 MG eCW1 ([facility]) Lisinopril 20 MG Oral Tablet Lisinopril 20 MG 03/14/2019 12:00:00 A M EST 1.0 {tablet} active Lisinopril 20 MG eCW1 ( [facility]) Lisinopril 20 MG Oral Tablet Lisinopril 20 MG 03/14/2019 12:00:00 A M EST 1.0 {tablet} active Lisinopril 20 MG eCW1 ( [facility]) Metoprolol Tartrate 25 MG Oral Tablet Metoprolol Tartrate 25 MG 03/14/2019 12:00:00 AM EST 1.0 {tablet_with_food} active Metoprolol Tartrate 25 MG eCW1 ([facility]) Lisinopril 20 MG Oral Tablet Lisinopril 20 MG 03/14/2019 12:00:00 A M EST 1.0 {tablet} active Lisinopril 20 MG eCW1 ( [facility]) Lisinopril 20 MG Oral Tablet Lisinopril 20 MG 03/14/2019 12:00:00 A M EST 1.0 {tablet} active Lisinopril 20 MG eCW1 ( [facility]) Metoprolol Tartrate 25 MG Oral Tablet Metoprolol Tartrate 25 MG 03/14/2019 12:00:00 AM EST 1.0 {tablet_with_food} active Metoprolol Tartrate 25 MG eCW1 ([facility]) Metoprolol Tartrate 25 MG Oral Tablet Metoprolol Tartrate 25 MG 03/14/2019 12:00:00 AM EST active 1 tablet with food eCW1 ([facility]) Metoprolol Tartrate 25 MG Oral Tablet Metoprolol Tartrate 25 MG 03/14/2019 12:00:00 AM EST 1.0 {tablet_with_food} active Metoprolol Tartrate 25 MG eCW1 ([facility]) Metoprolol Tartrate 25 MG Oral Tablet Metoprolol Tartrate 25 MG 03/14/2019 12:00:00 AM EST 1.0 {tablet_with_food} active Metoprolol Tartrate 25 MG eCW1 ([facility]) Metoprolol Tartrate 25 MG Oral Tablet Metoprolol Tartrate 25 MG 03/14/2019 12:00:00 AM EST active 1 tablet with food eCW1 ([facility]) Lisinopril 20 MG Oral Tablet Lisinopril 20 MG 03/14/2019 12:00:[address] active 1 tablet eCW1 ([facility]) Metoprolol Tartrate 25 MG Oral Tablet Metoprolol Tartrate 25 MG 03/14/2019 12:00:00 AM EST 1.0 {tablet_with_food} active Metoprolol Tartrate 25 MG eCW1 ([facility]) Lisinopril 20 MG Oral Tablet Lisinopril 20 MG 03/14/2019 12:00:00 A M EST 1.0 {tablet} active Lisinopril 20 MG eCW1 ( [facility]) Lisinopril 20 MG Oral Tablet Lisinopril 20 MG 03/14/2019 12:00:00 A M EST 1.0 {tablet} active Lisinopril 20 MG eCW1 ( [facility]) Lisinopril 20 MG Oral Tablet Lisinopril 20 MG 03/14/2019 12:00:00 A M EST 1.0 {tablet} active Lisinopril 20 MG eCW1 ( [facility]) Metoprolol Tartrate 25 MG Oral Tablet Metoprolol Tartrate 25 MG 03/14/2019 12:00:00 AM EST 1.0 {tablet_with_food} active Metoprolol Tartrate 25 MG eCW1 ([facility]) Lisinopril 20 MG Oral Tablet Lisinopril 20 MG 03/14/2019 12:00:00 A M EST 1.0 {tablet} active Lisinopril 20 MG eCW1 ( [facility]) Lisinopril 20 MG Oral Tablet Lisinopril 20 MG 03/14/2019 12:00:[address] active 1 tablet eCW1 ([facility]) Lisinopril 20 MG Oral Tablet Lisinopril 20 MG 03/14/2019 12:00:00 A M EST 1.0 {tablet} active Lisinopril 20 MG eCW1 ( [facility]) Metoprolol Tartrate 25 MG Oral Tablet Metoprolol Tartrate 25 MG 03/14/2019 12:00:00 AM EST 1.0 {tablet_with_food} active Metoprolol Tartrate 25 MG eCW1 ([facility]) Metoprolol Tartrate 25 MG Oral Tablet Metoprolol Tartrate 25 MG 03/14/2019 12:00:00 AM EST active 1 tablet with food eCW1 ([facility]) Metoprolol Tartrate 25 MG Oral Tablet Metoprolol Tartrate 25 MG 03/14/2019 12:00:00 AM EST 1.0 {tablet_with_food} active Metoprolol Tartrate 25 MG eCW1 ([facility]) Lisinopril 20 MG Oral Tablet Lisinopril 20 MG 03/14/2019 12:00:00 A M EST 1.0 {tablet} active Lisinopril 20 MG eCW1 ( [facility]) Lisinopril 20 MG Oral Tablet Lisinopril 20 MG 03/14/2019 12:00:00 A M EST 1.0 {tablet} active Lisinopril 20 MG eCW1 ( [facility]) Metoprolol Tartrate 25 MG Oral Tablet Metoprolol Tartrate 25 MG 03/14/2019 12:00:00 AM EST 1.0 {tablet_with_food} active Metoprolol Tartrate 25 MG eCW1 ([facility]) Lisinopril 20 MG Oral Tablet Lisinopril 20 MG 03/14/2019 12:00:00 A M EST 1.0 {tablet} active Lisinopril 20 MG eCW1 ( [facility]) Metoprolol Tartrate 25 MG Oral Tablet Metoprolol Tartrate 25 MG 03/14/2019 12:00:00 AM EST 1.0 {tablet_with_food} active Metoprolol Tartrate 25 MG eCW1 ([facility]) Metoprolol Tartrate 25 MG Oral Tablet Metoprolol Tartrate 25 MG 03/14/2019 12:00:00 AM EST 1.0 {tablet_with_food} active Metoprolol Tartrate 25 MG eCW1 ([facility]) Metoprolol Tartrate 25 MG Oral Tablet Metoprolol Tartrate 25 MG 03/14/2019 12:00:00 AM EST 1.0 {tablet_with_food} active Metoprolol Tartrate 25 MG eCW1 ([facility]) Metoprolol Tartrate 25 MG Oral Tablet Metoprolol Tartrate 25 MG 03/14/2019 12:00:00 AM EST 1.0 {tablet_with_food} active Metoprolol Tartrate 25 MG eCW1 ([facility]) Lisinopril 20 MG Oral Tablet Lisinopril 20 MG 03/14/2019 12:00:00 A M EST 1.0 {tablet} active Lisinopril 20 MG eCW1 ( [facility]) Metoprolol Tartrate 25 MG Oral Tablet Metoprolol Tartrate 25 MG 03/14/2019 12:00:00 AM EST 1.0 {tablet_with_food} active Metoprolol Tartrate 25 MG eCW1 ([facility]) Lisinopril 20 MG Oral Tablet Lisinopril 20 MG 03/14/2019 12:00:00 A M EST 1.0 {tablet} active Lisinopril 20 MG eCW1 ( [facility]) Lisinopril 20 MG Oral Tablet Lisinopril 20 MG 03/14/2019 12:00:[address] active 1 tablet eCW1 ([facility]) Lisinopril 20 MG Oral Tablet Lisinopril 20 MG 03/14/2019 12:00:00 A M EST 1.0 {tablet} active Lisinopril 20 MG eCW1 ( [facility]) Lisinopril 20 MG Oral Tablet Lisinopril 20 MG 03/14/2019 12:00:00 A M EST 1.0 {tablet} active Lisinopril 20 MG eCW1 ( [facility]) Metoprolol Tartrate 25 MG Oral Tablet Metoprolol Tartrate 25 MG 03/14/2019 12:00:00 AM EST 1.0 {tablet_with_food} active Metoprolol Tartrate 25 MG eCW1 ([facility]) Lisinopril 20 MG Oral Tablet Lisinopril 20 MG 03/14/2019 12:00:[address] active 1 tablet eCW1 ([facility]) Metoprolol Tartrate 25 MG Oral Tablet Metoprolol Tartrate 25 MG 03/14/2019 12:00:00 AM EST 1.0 {tablet_with_food} active Metoprolol Tartrate 25 MG eCW1 ([facility]) Lisinopril 20 MG Oral Tablet Lisinopril 20 MG 03/14/2019 12:00:00 A M EST 1.0 {tablet} active Lisinopril 20 MG eCW1 ( [facility]) Metoprolol Tartrate 25 MG Oral Tablet Metoprolol Tartrate 25 MG 03/14/2019 12:00:00 AM EST active 1 tablet with food eCW1 ([facility]) Metoprolol Tartrate 25 MG Oral Tablet Metoprolol Tartrate 25 MG 03/14/2019 12:00:00 AM EST 1.0 {tablet_with_food} active Metoprolol Tartrate 25 MG eCW1 ([facility]) Lisinopril 20 MG Oral Tablet Lisinopril 20 MG 03/14/2019 12:00:00 A M EST 1.0 {tablet} active Lisinopril 20 MG eCW1 ( [facility]) Metoprolol Tartrate 25 MG Oral Tablet Metoprolol Tartrate 25 MG 03/14/2019 12:00:00 AM EST 1.0 {tablet_with_food} active Metoprolol Tartrate 25 MG eCW1 ([facility]) Lisinopril 20 MG Oral Tablet Lisinopril 20 MG 03/14/2019 12:00:00 A M EST 1.0 {tablet} active Lisinopril 20 MG eCW1 ( [facility]) Lisinopril 20 MG Oral Tablet Lisinopril 20 MG 03/14/2019 12:00:00 A M EST 1.0 {tablet} active Lisinopril 20 MG eCW1 ( [facility]) Metoprolol Tartrate 25 MG Oral Tablet Metoprolol Tartrate 25 MG 03/14/2019 12:00:00 AM EST 1.0 {tablet_with_food} active Metoprolol Tartrate 25 MG eCW1 ([facility]) Lisinopril 20 MG Oral Tablet Lisinopril 20 MG 03/14/2019 12:00:00 A M EST 1.0 {tablet} active Lisinopril 20 MG eCW1 ( [facility]) Metoprolol Tartrate 25 MG Oral Tablet Metoprolol Tartrate 25 MG 03/14/2019 12:00:00 AM EST 1.0 {tablet_with_food} active Metoprolol Tartrate 25 MG eCW1 ([facility]) Metoprolol Tartrate 25 MG Oral Tablet Metoprolol Tartrate 25 MG 03/14/2019 12:00:00 AM EST 1.0 {tablet_with_food} active Metoprolol Tartrate 25 MG eCW1 ([facility]) Metoprolol Tartrate 25 MG Oral Tablet Metoprolol Tartrate 25 MG 03/14/2019 12:00:00 AM EST 1.0 {tablet_with_food} active Metoprolol Tartrate 25 MG eCW1 ([facility]) Metoprolol Tartrate 25 MG Oral Tablet Metoprolol Tartrate 25 MG 03/14/2019 12:00:00 AM EST 1.0 {tablet_with_food} active Metoprolol Tartrate 25 MG eCW1 ([facility]) Lisinopril 20 MG Oral Tablet Lisinopril 20 MG 03/14/2019 12:00:00 A M EST 1.0 {tablet} active Lisinopril 20 MG eCW1 ( [facility]) Lisinopril 20 MG Oral Tablet Lisinopril 20 MG 03/14/2019 12:00:00 A M EST 1.0 {tablet} active Lisinopril 20 MG eCW1 ( [facility]) Aspirin 500 MG / Caffeine 32.5 MG Oral T ablet [Junior Back and [facility] Pain] Junior Back & Body Pain Ex St 500-32.5 MG Junior Back [facility] Body Pain Ex St 500-32.5 MG 03/04/2019 12:00:00 AM EST active 2 tablets eCW1 ([facility]) Aspirin 500 MG / Caffeine 32.5 MG Oral T ablet [Junior Back and Body Pain] Junior Back & Body Pain Ex St 500-32.5 MG Junior Back [facility] Body Pain Ex St 500-32.5 MG 03/04/2019 12:00:00 AM EST 2.0 {tablets} active Junior Back & Body Pain Ex St 500-32.5 MG eCW1 ([facility]) Aspercreme 10 % UNK 03/04/2019 12:00:00 AM EST active Aspercreme 10 % eCW1 ([facility]) Aspirin 500 MG / Caffeine 32.5 MG Oral T ablet [Junior Back and Body Pain] Junior Back & Body Pain Ex St 500-32.5 MG Junior Back [facility] Body Pain Ex St 500-32.5 MG 03/04/2019 12:00:00 AM EST 2.0 {tablets} active Junior Back [facility] Body Pain Ex St 500-32.5 MG eCW1 ([facility]) trolamine salicylate 100 MG/ML Topical Lotion [Aspercr lloyd] Aspercreme 10 % Aspercreme 10 % 03/04/2019 12:00:00 AM EST active Aspercreme 10 % eCW1 ([facility]) trolamine salicylate 100 MG/ML Topical Lotion [Aspercr lloyd] Aspercreme 10 % Aspercreme 10 % 03/04/2019 12:00:00 AM EST active Aspercreme 10 % eCW1 ([facility]) Salonpas UNK 03/04/2019 12:00:00 AM EST active Salonpas eCW1 ([facility]) trolamine salicylate 100 MG/ML Topical Lotion [Aspercr lloyd] Aspercreme 10 % Aspercreme 10 % 03/04/2019 12:00:00 AM EST active Aspercreme 10 % eCW1 ([facility]) trolamine salicylate 100 MG/ML Topical Lotion [Aspercr lloyd] Aspercreme 10 % Aspercreme 10 % 03/04/2019 12:00:00 AM EST active Aspercreme 10 % eCW1 ([facility]) Salonpas UNK 03/04/2019 12:00:00 AM EST suspended Salonpas eCW1 ([facility]) Salonpas UNK 03/04/2019 12:00:00 AM EST active Salonpas eCW1 ([facility]) Aspirin 500 MG / Caffeine 32.5 MG Oral T ablet [Junior Back and Body Pain] Junior Back & Body Pain Ex St 500-32.5 MG Junior Back & Body Pain Ex St 500-32.5 MG 03/04/2019 12:00:00 AM EST 2.0 {tablets} active Junior Back & Body Pain Ex St 500-32.5 MG eCW1 ([facility]) Aspercreme 10 % UNK 03/04/2019 12:00:00 AM EST active Aspercreme 10 % eCW1 ([facility]) trolamine salicylate 100 MG/ML Topical Lotion [Aspercr lloyd] Aspercreme 10 % Aspercreme 10 % 03/04/2019 12:00:00 AM EST active Aspercreme 10 % eCW1 ([facility]) Metoprolol Tartrate 25 MG Oral Tablet Metoprolol Tartrate 25 MG 03/04/2019 12:00:00 AM EST 1.0 {tablet_with_food} active Metoprolol Tartrate 25 MG eCW1 ([facility]) Aspirin 500 MG / Caffeine 32.5 MG Oral T ablet [Junior Back and Body Pain] Junior Back & Body Pain Ex St 500-32.5 MG Junior Back [facility] Body Pain Ex St 500-32.5 MG 03/04/2019 12:00:00 AM EST 2.0 {tablets} active Junior Back & Body Pain Ex St 500-32.5 MG eCW1 ([facility]) Lisinopril 20 MG Oral Tablet Lisinopril 20 MG 03/04/2019 12:00:00 A M EST 1.0 {tablet} suspended Lisinopril 20 MG eCW1 ([facility]) Metoprolol Tartrate 25 MG Oral Tablet Metoprolol Tartrate 25 MG 03/04/2019 12:00:00 AM EST 1.0 {tablet_with_food} active Metoprolol Tartrate 25 MG eCW1 ([facility]) Aspirin 500 MG / Caffeine 32.5 MG Oral T ablet [Junior Back and Body Pain] Junior Back & Body Pain Ex St 500-32.5 MG Junior Back & Body Pain Ex St 500-32.5 MG 03/04/2019 12:00:00 AM EST 2.0 {tablets} active Junior Back & Body Pain Ex [facility] 500-32.5 MG eCW1 ([facility]) Aspercreme 10 % UNK 03/04/2019 12:00:00 AM EST active Aspercreme 10 % eCW1 ([facility]) trolamine salicylate 100 MG/ML Topical Lotion [Aspercr lloyd] Aspercreme 10 % Aspercreme 10 % 03/04/2019 12:00:00 AM EST active Aspercreme 10 % eCW1 ([facility]) Lisinopril 20 MG Oral Tablet Lisinopril 20 MG 03/04/2019 12:00:[address] active 1 tablet eCW1 ([facility]) Salonpas UNK 03/04/2019 12:00:00 AM EST active Salonpas eCW1 ([facility]) Aspirin 500 MG / Caffeine 32.5 MG Oral T ablet [Junior Back and Body Pain] Junior Back & Body Pain Ex St 500-32.5 MG Junior Back & Body Pain Ex St 500-32.5 MG 03/04/2019 12:00:00 AM EST 2.0 {tablets} active Junior Back & Body Pain Ex [facility] 500-32.5 MG eCW1 ([facility]) Aspirin 500 MG / Caffeine 32.5 MG Oral T ablet [Junior Back and Body Pain] Junior Back & Body Pain Ex St 500-32.5 MG Junior Back & Body Pain Ex St 500-32.5 MG 03/04/2019 12:00:00 AM EST 2.0 {tablets} active Junior Back & Body Pain Ex [facility] 500-32.5 MG eCW1 ([facility]) Lisinopril 20 MG Oral Tablet Lisinopril 20 MG 03/04/2019 12:00:[address] active 1 tablet eCW1 ([facility]) Aspirin 500 MG / Caffeine 32.5 MG Oral T ablet [Junior Back and Body Pain] Junior Back & Body Pain Ex [facility] 500-32.5 MG Junior Back [facility] Body Pain Ex St 500-32.5 MG 03/04/2019 12:00:00 AM EST 2.0 {tablets} active Junior Back & Body Pain Ex St 500-32.5 MG eCW1 ([facility]) trolamine salicylate 100 MG/ML Topical Lotion [Aspercr lloyd] Aspercreme 10 % Aspercreme 10 % 03/04/2019 12:00:00 AM EST active as directed eCW1 ([facility]) Aspirin 500 MG / Caffeine 32.5 MG Oral T ablet [Junior Back and Body Pain] Junior Back & Body Pain Ex St 500-32.5 MG Junior Back & Body Pain Ex St 500-32.5 MG 03/04/2019 12:00:00 AM EST active 2 tablets eCW1 ([facility]) Metoprolol Tartrate 25 MG Oral Tablet Metoprolol Tartrate 25 MG 03/04/2019 12:00:00 AM EST active 1 tablet with food eCW1 ([facility]) Aspirin 500 MG / Caffeine 32.5 MG Oral T ablet [Junior Back and Body Pain] Junior Back & Body Pain Ex St 500-32.5 MG Junior Back & Body Pain Ex St 500-32.5 MG 03/04/2019 12:00:00 AM EST active 2 tablets eCW1 ([facility]) Aspirin 500 MG / Caffeine 32.5 MG Oral T ablet [Junior Back and Body Pain] Junior Back & Body Pain Ex [facility] 500-32.5 MG Junior Back & Body Pain Ex St 500-32.5 MG 03/04/2019 12:00:00 AM EST 2.0 {tablets} active Junior Back & Body Pain Ex [facility] 500-32.5 MG eCW1 ([facility]) Aspirin 500 MG / Caffeine 32.5 MG Oral T ablet [Junior Back and Body Pain] Junior Back & Body Pain Ex St 500-32.5 MG Junior Back & Body Pain Ex St 500-32.5 MG 03/04/2019 12:00:00 AM EST 2.0 {tablets} active Junior Back & Body Pain Ex St 500-32.5 MG eCW1 ([facility]) Aspirin 500 MG / Caffeine 32.5 MG Oral T ablet [Junior Back and Body Pain] Junior Back & Body Pain Ex St 500-32.5 MG Junior Back & Body Pain Ex St 500-32.5 MG 03/04/2019 12:00:00 AM EST 2.0 {tablets} active Junior Back & Body Pain Ex St 500-32.5 MG eCW1 ([facility]) Salonpas UNK 03/04/2019 12:00:00 AM EST active Salonpas eCW1 ([facility]) Aspercreme 10 % UNK 03/04/2019 12:00:00 AM EST active Aspercreme 10 % eCW1 ([facility]) Metoprolol Tartrate 25 MG Oral Tablet Metoprolol Tartrate 25 MG 03/04/2019 12:00:00 AM EST suspended 1 tab let with food eCW1 ([facility]) Lisinopril 20 MG Oral Tablet Lisinopril 20 MG 03/04/2019 12:00:00 A M EST 1.0 {tablet} suspended Lisinopril 20 MG eCW1 ([facility]) Salonpas UNK 03/04/2019 12:00:00 AM EST suspended Salonpas eCW1 ([facility]) Salonpas UNK 03/04/2019 12:00:00 AM EST active Salonpas eCW1 ([facility]) Salonpas UNK 03/04/2019 12:00:00 AM EST suspended eCW1 ([facility]) Metoprolol Tartrate 25 MG Oral Tablet Metoprolol Tartrate 25 MG 03/04/2019 12:00:00 AM EST 1.0 {tablet_with_food} active Metoprolol Tartrate 25 MG eCW1 ([facility]) Aspirin 500 MG / Caffeine 32.5 MG Oral T ablet [Junior Back and Body Pain] Junior Back & Body Pain Ex St 500-32.5 MG Junior Back & Body Pain Ex St 500-32.5 MG 03/04/2019 12:00:00 AM EST 2.0 {tablets} active Junior Back & Body Pain Ex St 500-32.5 MG eCW1 ([facility]) Salonpas UNK 03/04/2019 12:00:00 AM EST suspended Salonpas eCW1 ([facility]) Metoprolol Tartrate 25 MG Oral Tablet Metoprolol Tartrate 25 MG 03/04/2019 12:00:00 AM EST active 1 tablet with food eCW1 ([facility]) trolamine salicylate 100 MG/ML Topical Lotion [Aspercr lloyd] Aspercreme 10 % Aspercreme 10 % 03/04/2019 12:00:00 AM EST active Aspercreme 10 % eCW1 ([facility]) Metoprolol Tartrate 25 MG Oral Tablet Metoprolol Tartrate 25 MG 03/04/2019 12:00:00 AM EST 1.0 {tablet_with_food} active Metoprolol Tartrate 25 MG eCW1 ([facility]) Aspirin 500 MG / Caffeine 32.5 MG Oral T ablet [Junior Back and Body Pain] Junior Back & Body Pain Ex St 500-32.5 MG Junior Back & Body Pain Ex St 500-32.5 MG 03/04/2019 12:00:00 AM EST 2.0 {tablets} active Junior Back & Body Pain Ex St 500-32.5 MG eCW1 ([facility]) Metoprolol Tartrate 25 MG Oral Tablet Metoprolol Tartrate 25 MG 03/04/2019 12:00:00 AM EST 1.0 {tablet_with_food} active Metoprolol Tartrate 25 MG eCW1 ([facility]) Salonpas UNK 03/04/2019 12:00:00 AM EST suspended eCW1 ([facility]) Aspercreme 10 % UNK 03/04/2019 12:00:00 AM EST active Aspercreme 10 % eCW1 ([facility]) Aspirin 500 MG / Caffeine 32.5 MG Oral T ablet [Junior Back and Body Pain] Junior Back & Body Pain Ex St 500-32.5 MG Junior Back & Body Pain Ex St 500-32.5 MG 03/04/2019 12:00:00 AM EST 2.0 {tablets} active Junior Back & Body Pain Ex St 500-32.5 MG eCW1 ([facility]) trolamine salicylate 100 MG/ML Topical Lotion [Aspercr lloyd] Aspercreme 10 % Aspercreme 10 % 03/04/2019 12:00:00 AM EST active Aspercreme 10 % eCW1 ([facility]) Aspirin 500 MG / Caffeine 32.5 MG Oral T ablet [Junior Back and Body Pain] Junior Back & Body Pain Ex St 500-32.5 MG Junior Back & Body Pain Ex St 500-32.5 MG 03/04/2019 12:00:00 AM EST 2.0 {tablets} active Junior Back & Body Pain Ex St 500-32.5 MG eCW1 ([facility]) Aspirin 500 MG / Caffeine 32.5 MG Oral T ablet [Junior Back and Body Pain] Junior Back & Body Pain Ex St 500-32.5 MG Junior Back & Body Pain Ex St 500-32.5 MG 03/04/2019 12:00:00 AM EST active 2 tablets eCW1 ([facility]) Aspercreme 10 % UNK 03/04/2019 12:00:00 AM EST active Aspercreme 10 % eCW1 ([facility]) Metoprolol Tartrate 25 MG Oral Tablet Metoprolol Tartrate 25 MG 03/04/2019 12:00:00 AM EST active 1 tablet with food eCW1 ([facility]) Salonpas UNK 03/04/2019 12:00:00 AM EST active eCW1 ([facility]) Lisinopril 20 MG Oral Tablet Lisinopril 20 MG 03/04/2019 12:00:[address] active 1 tablet eCW1 ([facility]) trolamine salicylate 100 MG/ML Topical Lotion [Aspercr lloyd] Aspercreme 10 % Aspercreme 10 % 03/04/2019 12:00:00 AM EST active Aspercreme 10 % eCW1 ([facility]) Salonmts UNK 03/04/2019 12:00:00 AM EST suspended eCW1 ([facility]) Salonpas UNK 03/04/2019 12:00:00 AM EST active Salonpas eCW1 ([facility]) trolamine salicylate 100 MG/ML Topical Lotion [Aspercr lloyd] Aspercreme 10 % Aspercreme 10 % 03/04/2019 12:00:00 AM EST active as directed eCW1 ([facility]) Aspirin 500 MG / Caffeine 32.5 MG Oral T ablet [[facility]] [facility] Ex St 500-32.5 MG [facility] [employer] [facility] Ex St 500-32.5 MG 03/04/2019 12:00:00 AM EST 2.0 {tablets} active [facility] [employer] [facility] Ex St 500-32.5 MG eCW1 ([facility]) Lisinopril 20 MG Oral Tablet Lisinopril 20 MG 03/04/2019 12:00:[address] suspended 1 tablet eCW1 [facility] [facility]) [facility] 03/04/2019 12:00:00 AM EST suspended Salonpas eCW1 ([facility]) Aspirin 500 MG / Caffeine 32.5 MG Oral T ablet [Junior Back and Body Pain] Junior Back & Body Pain Ex St 500-32.5 MG Junior Back & Body Pain Ex St 500-32.5 MG 03/04/2019 12:00:00 AM EST 2.0 {tablets} active Junior Back & Body Pain Ex St 500-32.5 MG eCW1 ([facility]) Aspirin 500 MG / Caffeine 32.5 MG Oral T ablet [Junior Back and Body Pain] Junior Back & Body Pain Ex St 500-32.5 MG Junior Back & Body Pain Ex St 500-32.5 MG 03/04/2019 12:00:00 AM EST 2.0 {tablets} active Junior Back & Body Pain Ex St 500-32.5 MG eCW1 ([facility]) Salonpas UNK 03/04/2019 12:00:00 AM EST active Salonpas eCW1 ([facility]) Metoprolol Tartrate 25 MG Oral Tablet Metoprolol Tartrate 25 MG 03/04/2019 12:00:00 AM EST 1.0 {tablet_with_food} active Metoprolol Tartrate 25 MG eCW1 ([facility]) [facility]pas UNK 03/04/2019 12:00:00 AM EST suspended Salonpas eCW1 ([facility]) Salonpas UNK 03/04/2019 12:00:00 AM EST suspended [facility]pas eCW1 ([facility]) Lisinopril 20 MG Oral Tablet Lisinopril 20 MG 03/04/2019 12:00:00 A M EST 1.0 {tablet} suspended Lisinopril 20 MG eCW1 ([facility]) [facility]pas UNK 03/04/2019 12:00:00 AM EST active eCW1 ([facility]) [facility]pas UNK 03/04/2019 12:00:00 AM EST active Salonpas eCW1 ([facility]) Sal[facility]pas UNK 03/04/2019 12:00:00 AM EST suspended [facility]pas eCW1 ([facility]) trolamine salicylate 100 MG/ML Topical Lotion [Aspercr lloyd] Aspercreme 10 % Aspercreme 10 % 03/04/2019 12:00:00 AM EST active Aspercreme 10 % eCW1 ([facility]) trolamine salicylate 100 MG/ML Topical Lotion [Aspercr lloyd] Aspercreme 10 % Aspercreme 10 % 03/04/2019 12:00:00 AM EST active Aspercreme 10 % eCW1 ([facility]) Aspirin 500 MG / Caffeine 32.5 MG Oral T ablet [Junior Back and Body Pain] Junior Back & Body Pain Ex St 500-32.5 MG Junior Back & Body Pain Ex St 500-32.5 MG 03/04/2019 12:00:00 AM EST 2.0 {tablets} active Junior Back & Body Pain Ex St 500-32.5 MG eCW1 ([facility]) Lisinopril 20 MG Oral Tablet Lisinopril 20 MG 03/04/2019 12:00:00 A M EST 1.0 {tablet} suspended Lisinopril 20 MG eCW1 ([facility]) Aspirin 500 MG / Caffeine 32.5 MG Oral T ablet [Junior Back and Body Pain] Junior Back & Body Pain Ex St 500-32.5 MG Junior Back & Body Pain Ex St 500-32.5 MG 03/04/2019 12:00:00 AM EST 2.0 {tablets} active Junior Back & Body Pain Ex St 500-32.5 MG eCW1 ([facility]) trolamine salicylate 100 MG/ML Topical Lotion [Aspercr lloyd] Aspercreme 10 % Aspercreme 10 % 03/04/2019 12:00:00 AM EST active Aspercreme 10 % eCW1 ([facility]) Salonpas UNK 03/04/2019 12:00:00 AM EST active Salonpas eCW1 ([facility]) Aspercreme 10 % UNK 03/04/2019 12:00:00 AM EST active Aspercreme 10 % eCW1 ([facility]) trolamine salicylate 100 MG/ML Topical Lotion [Aspercr lloyd] Aspercreme 10 % Aspercreme 10 % 03/04/2019 12:00:00 AM EST active Aspercreme 10 % eCW1 ([facility]) Salonpas UNK 03/04/2019 12:00:00 AM EST suspended Salonpas eCW1 ([facility]) trolamine salicylate 100 MG/ML Topical Lotion [Aspercr lloyd] Aspercreme 10 % Aspercreme 10 % 03/04/2019 12:00:00 AM EST active as directed eCW1 ([facility]) Aspirin 500 MG / Caffeine 32.5 MG Oral T ablet [Junior Back and Body Pain] Junior Back & Body Pain Ex St 500-32.5 MG Junior Back & Body Pain Ex St 500-32.5 MG 03/04/2019 12:00:00 AM EST 2.0 {tablets} active Junior Back & Body Pain Ex St 500-32.5 MG eCW1 ([facility]) Metoprolol Tartrate 25 MG Oral Tablet Metoprolol Tartrate 25 MG 03/04/2019 12:00:00 AM EST 1.0 {tablet_with_food} active Metoprolol Tartrate 25 MG eCW1 ([facility]) Salonpas UNK 03/04/2019 12:00:00 AM EST active Salonpas eCW1 ([facility]) trolamine salicylate 100 MG/ML Topical Lotion [Aspercr lloyd] Aspercreme 10 % Aspercreme 10 % 03/04/2019 12:00:00 AM EST active Aspercreme 10 % eCW1 ([facility]) Salonpas UNK 03/04/2019 12:00:00 AM EST suspended Sal[facility]pas eCW1 ([facility]) Aspirin 500 MG / Caffeine 32.5 MG Oral T ablet [Junior Back and Body Pain] Junior Back & Body Pain Ex St 500-32.5 MG Junior Back & Body Pain Ex St 500-32.5 MG 03/04/2019 12:00:00 AM EST 2.0 {tablets} active Junior Back & Body Pain Ex St 500-32.5 MG eCW1 ([facility]) Metoprolol Tartrate 25 MG Oral Tablet Metoprolol Tartrate 25 MG 03/04/2019 12:00:00 AM EST active 1 tablet with food eCW1 ([facility]) Lisinopril 20 MG Oral Tablet Lisinopril 20 MG 03/04/2019 12:00:00 A M EST 1.0 {tablet} suspended Lisinopril 20 MG eCW1 ([facility]) trolamine salicylate 100 MG/ML Topical Lotion [Aspercr lloyd] Aspercreme 10 % Aspercreme 10 % 03/04/2019 12:00:00 AM EST active as directed eCW1 ([facility]) Salonpas UNK 03/04/2019 12:00:00 AM EST suspended [facility]pas eCW1 ([facility]) trolamine salicylate 100 MG/ML Topical Lotion [Aspercr lloyd] Aspercreme 10 % Aspercreme 10 % 03/04/2019 12:00:00 AM EST active Aspercreme 10 % eCW1 ([facility]) Metoprolol Tartrate 25 MG Oral Tablet Metoprolol Tartrate 25 MG 03/04/2019 12:00:00 AM EST 1.0 {tablet_with_food} active Metoprolol Tartrate 25 MG eCW1 ([facility]) Lisinopril 20 MG Oral Tablet Lisinopril 20 MG 03/04/2019 12:00:[address] active 1 tablet eCW1 ([facility]) Sal[facility]pas UNK 03/04/2019 12:00:00 AM EST active Sal[facility]pas eCW1 ([facility]) Aspirin 500 MG / Caffeine 32.5 MG Oral T ablet [Junior Back and Body Pain] Junior Back & Body Pain Ex St 500-32.5 MG Junior Back & Body Pain Ex St 500-32.5 MG 03/04/2019 12:00:00 AM EST 2.0 {tablets} active Junior Back & Body Pain Ex St 500-32.5 MG eCW1 ([facility]) trolamine salicylate 100 MG/ML Topical Lotion [Aspercr lloyd] Aspercreme 10 % Aspercreme 10 % 03/04/2019 12:00:00 AM EST active Aspercreme 10 % eCW1 ([facility]) trolamine salicylate 100 MG/ML Topical Lotion [Aspercr lloyd] Aspercreme 10 % Aspercreme 10 % 03/04/2019 12:00:00 AM EST active as directed eCW1 ([facility]) Sal[facility]pas UNK 03/04/2019 12:00:00 AM EST active Sal[facility]pas eCW1 ([facility]) Aspirin 500 MG / Caffeine 32.5 MG Oral T ablet [Junior Back and Body Pain] Junior Back & Body Pain Ex St 500-32.5 MG Junior Back & Body Pain Ex St 500-32.5 MG 03/04/2019 12:00:00 AM EST 2.0 {tablets} active Junior Back & Body Pain Ex St 500-32.5 MG eCW1 ([facility]) [facility]pas UNK 03/04/2019 12:00:00 AM EST suspended Sal[facility]pas eCW1 ([facility]) Metoprolol Tartrate 25 MG Oral Tablet Metoprolol Tartrate 25 MG 03/04/2019 12:00:00 AM EST 1.0 {tablet_with_food} active Metoprolol Tartrate 25 MG eCW1 ([facility]) [place] UNK 03/04/2019 12:00:00 AM EST suspended Salonpas eCW1 ([facility]) Metoprolol Tartrate 25 MG Oral Tablet Metoprolol Tartrate 25 MG 03/04/2019 12:00:00 AM EST active 1 tablet with food eCW1 ([facility]) Aspirin 500 MG / Caffeine 32.5 MG Oral T ablet [Junior Back and Body Pain] Junior Back & Body Pain Ex St 500-32.5 MG Junior Back & Body Pain Ex St 500-32.5 MG 03/04/2019 12:00:00 AM EST active 2 tablets eCW1 ([facility]) trolamine salicylate 100 MG/ML Topical Lotion [Aspercr lloyd] Aspercreme 10 % Aspercreme 10 % 03/04/2019 12:00:00 AM EST active Aspercreme 10 % eCW1 ([facility]) Insurance Providers Payer name Policy type / Coverage type Policy ID Covered alliance party ID Covered alliance party's relationship to reyes Policy Reyes Plan Information [employer] [id number] 7 [id number] [facility] [place] O [id number] S [id number] [facility] EXCHANGE [id number] SAM EXCHANGE [id number] [facility] 7 [id number] ANSI-Not a Secondary Insurance [id number]-[id number] ANSI-Commercial [id number]-[id number] ANSI-Commercial [id number]-[id number]-[id number] ANSI-Commercial [id number]-on49-[id number] 26gw2t00-495e-0828-vi50-[id number] ANSI-Not a Secondary Insurance [id number]-aunu-[id number] 49g7su0q-5o5n-877k-mhut-[id number] ANSI-Commercial [id number]-[id number]-n943-[id number] 96ocb8zj-8p76-77hm-t670-f610w137s4r5 ANSI-Not a Secondary Insurance [id number] [id number] ANSI-Commercial [id number]-6uw7-5v0r2b2g8ev3 r1p76556-22a8-474g-7vp9-4q9d3x9z0mr9 ANSI-Commercial ga94ts3g-8f66-7257-99o0-pw41g3j246su hn40ke4y-7n51-8060-34a4-vo64o9p591op ANSI-Commercial qs6x0zm9-zi0a-1831-9mx2-39814x83559r jw3u8md2-as2u-2835-9nc8-23880d91853y ANSI-Commercial 970f76cf-ug80-564k-19i9-07205fc9010g 224n00px-ie06-286i-33l4-89888ac1180z ANSI-Not a Secondary Insurance [id number]-[id number] ANSI-Not a Secondary Insurance [id number]-21i4-5v63i b5k53m9 q689j253-7671-1d1o-41m2-4l59gk4f51y9 ANSI-Commercial x330q800-10og-6e81-fdwj-x9990227gik0 i929w807-58zy-5j69-qnrx-s9358181xag3 ANSI-Commercial ok9n56v6-9qx3-5f84-50l4-62e33ucu1425 yq0o51d8-7rx5-4m62-30q2-02w93mfh3459 ANSI-Commercial 84wl46h9-45qw-63g1-m831-v54148y21y09 17mt90k2-90we-41n4-w587-z70487d75e07 ANSI-Commercial 3v64r671-211q-5948-7i48-3661897e55o1 0e58p025-262u-0834-8l03-8736853i25s1 ANSI-Not a Secondary Insurance 811i98d6-mt61-64og-d470-z9067 ra7kmb1 528y49g6-ym70-66gk-h065-k0858cm6got8 ANSI-Commercial 9t9u2u89- 8t6k1y81-ccn8-5844-9ok0-5u8fwv804u21 ANSI-Commercial j7vk51x6-jzsi-8028-z026-cje25qhh565a i0zp30b9-zmif-3565-z284-gdy81hca771r ANSI-Not a Secondary Insurance w3lhw8x8-g843-7rd4-9903-6h058 [id number] q0zbx4u2-u943-2lb5-6494-5q068a3v62q4 BC/BS Of [facility] Part B [id number] Self [id number] [facility] Commercial [id number] [facility] [id number] ANSI-Commercial [id number]-585i-6ohw-x51x-[id number] 7s6h422i-381v-0pck-p53y-6l331962nm71 ANSI-Commercial 2k038v20-16b7-667b-wlv3-0q1q92tv0627 2w982f82-18d2-036k-nra0-8y8g05ih0086 ANSI-Not a Secondary Insurance [id number]-o4hiw [id number] 9m0470p0-7tw2-7430-7ap2-c3ovivy57s19 ANSI-Commercial c8o63539-9h2o-92m0-l46a-epgo5y6f94ba c7h80136-0r2u-93t4-v81w-ialg7h7c37eq ANSI-Commercial 452f5x70-0444-103t-6v7k-ld86pr0648j9 810d5p25-5333-729r-5f1i-jf32iu9099x9 ANSI-Not a Secondary Insurance 8i383k32-16c2-585p-ja8y-7x049 [id number] 4g250i79-43k6-658y-ws0m-5i86594268a1 ANSI-Commercial 6j025809-7wms-0719-m474-g34zk581872k 2f093923-0sia-1516-p234-u78uv991192q ANSI-Not a Secondary Insurance 9j8z602m-341q-8s78-s4m3-5t21y r8up59g 5w2o214l-566j-7a01-r1g3-5l67qb1uj03f ANSI-Commercial 278v9e52-6323-8084-lh00-4474j3rz73p2 405c3u56-2377-4947-cq19-6924f1tk98j5 ANSI-Commercial 45m69c1v-38i0-1090-s8rk-s4q21i25549d 68e85n0k-86g6-4632-j8nc-a7p17i00484l ANSI-Commercial p465wo70-930i-1302-m5f2-9es3816gh603 j841mc35-144z-9019-p8b0-7zp7779na297 ANSI-Not a Secondary Insurance 988512tj-h79a-104w-mi66-y7xls 7jz5ioo 038779sp-d95c-214w-bg88-t2dwq0hy0mci ANSI-Commercial 126903px-9brr-5c6i-l556-b43xy30x7y2s 731612kr-5tys-8k9v-m507-l20dw53a8y3i ANSI-Commercial 477j8592-b2bp-9g86-j192-349143w8t6dv 556j8897-d8fj-3e73-x276-393153v6m5px ANSI-Not a Secondary Insurance fm0w39h3-50d1-2588-l147-291x1 45jc85f ge7c51c0-52w0-4836-y316-078d612pm91h ANSI-Commercial 2ee34q18-ja75-8570-eq55-d3t82b6r33r0 3du30i48-tt74-7277-dz82-y1i67d9k78p2 ANSI-Commercial 763rhv9p-470m-3y25-99fp-88s40w9083k2 794zmj0j-326d-1l62-23ua-24r70k1509a2 ANSI-Not a Secondary Insurance 1ogp4030-3m5w-9ewp-9c52-5293e 0l11qzq 0fxs7783-7a3b-4ecw-8o07-6820r8i74iko ANSI-Not a Secondary Insurance jn5v4g55-ac61-5238-5311-oh074 53114t1 fz9z6n56-wo50-6278-8348-xh48211555x4 ANSI-Commercial 84e28cp1-7124-4r1s-49a4-65i460h0518p 54p40xn8-8123-0r0w-44b4-56z680y7591m ANSI-Commercial 00098965-l6n5-85m5-c90h-f533pw132376 78868733-m2r5-49u3-o56x-l013wt339772 ANSI-Commercial 881y3og4-ys1x-41d4-9l3a-nzmby9q2d3j9 779o4zn7-iy7m-69h9-4c7x-mjzyw0c4c8e3 ANSI-Not a Secondary Insurance 0500g7w1-3816-387u-7314-6n0t0 9e53b2v 0127q1h7-8669-491v-4342-0c8x01x82v7r ANSI-Commercial 1x8j32i0-bl64-62i4-c28o-wjq5w7331045 5u6k93m2-rm50-62y5-h87u-guc2t8041358 ANSI-Commercial yne7y70h-667u-8v50-k1fb-337rj2x99117 fow2f15o-330m-5w10-g9bk-862zk1c89833 ANSI-Commercial 679z21kh-9511-2eil-sd66-5p4p3hc38dy0 390p02oo-1211-3nkh-um46-7e9b3ri71hm1 ANSI-Not a Secondary Insurance 9k13j2d8-ypn6-9rr4-y9bk-5260l 70ncr9p 5t34u1e7-pqi8-9vi6-z9le-6237b39oib6l ANSI-Commercial 6o03l248-35b2-3v80-82s3-nr7bt925x737 0x08u242-71m6-6m73-42f7-ay6zs725s981 ANSI-Commercial h3wuf0i8-23v8-1762-n051-12k65v5ur21t h0qqx1m3-48d0-4007-j276-51b05e6fr04w ANSI-Not a Secondary Insurance 4ta1g873-3379-51b0-0ey6-59s27 2vt9408 5wr2e765-7802-87x1-4ir5-78c664nc6207 ANSI-Not a Secondary Insurance 10fn6092-7p87-6zs4-62v3-w3vm7 g726948 88hm0032-4d51-8ek5-46n5-y2dg6c732060 ANSI-Commercial 026a56a1-65i8-277t-0fm0-7lfhv6ih58b3 648d66t7-16s1-321z-9ti6-1snjv9go91q0 ANSI-Commercial e3043417-dy89-651v-bu7n-3h865c809g90 w3884128-dr06-349v-uo8r-0c119p894e55 ANSI-Commercial vk6051c3-86bb-2u59-z5xt-g4998659j744 di3117m1-72he-4q40-f0bl-h9753739h255 ANSI-Commercial 8661mx61-47g1-322i-8e34-812pvesz30gn 7703vn53-66z1-478y-1p09-005pewjb07lv ANSI-Not a Secondary Insurance 8ir92093-369h-2s6n-1id8-66203 5idc392 7ti61101-104q-0q4m-9wg1-720085fan995 ANSI-Commercial 6xo98p41-5w5m-9r38-2wh6-4m9hb019ye73 8ep77g52-0y9u-8o62-8tq3-3x0gq865dx95 ANSI-Commercial x86l8x6i-055e-411k-5998-1q98u696619m r73h5b0m-984j-461r-6478-9x07r266659d ANSI-Commercial 4s7598l8-c7t7-8eyf-xph7-hh8u18292121 2t2820s2-n8u0-5mkq-yhd5-me7m79074872 ANSI-Commercial jm23x5vh-614y-5ohc-xg09-e45j36xk790b ul50u5hz-823c-8zsa-sp24-o16j22me137l ANSI-Commercial l0d2561z-r1g6-0974-x3b0-7e0y4o1ow836 i6m5599e-g4q3-1642-p9l2-9n9a2i9fl390 ANSI-Commercial 4x8ixnm4-445e-1g0q-tr7m-d586eca67w59 3y5ywqi1-348r-1k0n-np2e-w975ugh21o56 ANSI-Commercial g7y46ta5-v4eg-22y6-5n00-15o0e5pj6t19 g4c80gj0-l8yv-28y1-7g49-13o0j5vk1m26 ANSI-Commercial 7298t93a-o469-6u47-5o75-444htl5ykw96 4915a64u-h312-1d54-9s58-741fct0vxt72 ANSI-Commercial 4j3y87ci-xu80-8s40-seg6-p2861x461176 6o1v91xc-nz93-0v11-oxv6-u5187y835393 ANSI-Commercial 1z196l97-2p87-7ajr-onev-9r9221fef767 5a031y44-0r71-2rnf-tewc-7i2004mze891 ANSI-Commercial 18m25266-77a4-7tb4-08z4-598i68s415yw 65v99812-42z7-3tj9-97t3-729w20f504sd ANSI-Commercial 8vy1w4x2-g1i9-2w3n-cc81-ku62j64zo7y7 7tf7j7l7-f3o6-4f7d-dw99-nf41n88ak3j6 ANSI-Commercial fkrg56ip-z92g-1aj1-q1h6-sc4758ajx0g6 wdjo22jg-l73r-8hr2-p2c4-xx5994ivl3d9 ANSI-Commercial d2552708-7i72-97x5-v854-725m45437812 d5701155-1o94-94d6-c762-359c66069585 ANSI-Commercial 536q6494-ert2-0shs-h152-8e4otw19l72q 296m6511-zwa7-0vfq-e690-0r8jfd18x52e ANSI-Commercial 2aik6v75-i4x3-05b3-521e-728l404n727q 0ept8g94-b9v0-55r6-128u-752n186c349l ANSI-Commercial krv5tgj6-t5sf-8h27-37k8-vyi28a9mvl61 bnw2poj2-f3ct-7b16-12t8-ufi50f5etm47 ANSI-Commercial 9z22x65v-2gz5-6h73-8o0d-87358tv2745g 6y82y85y-8cl9-6m46-8a4t-71764sl4398z ANSI-Commercial 1j0m7l4m-f408-8448-p58w-867844082440 1a1f4j5y-i860-0065-t96h-180509021722 ANSI-Commercial 65i04664-3333-5b1s-gn21-s7k52upzk7cm 05s98774-7204-6r6l-ri56-r3s05sgsx4pa BCBS [employer] EMPL[employer]EE PROGRAM [id number] SP [id number] BCBS FEDERAL EMPLOYEE PROGRAM [id number] SP [id number] BC/BS Of [place] Commercial [id number] Self [id number] BCBS OF [place] 306/806 [id number] SP [id number] EXCELLUS BCBS FEDERAL [id number] SP [id number] [employer]LLUS BCBS B [id number] S VYS BC/BS Of [place] Commercial Self BCBS OF [place] 306/806 [id number] SP [id number] BCBS OF [place] 306/806 [id number] SP [id number] [facility] O [id number] S [id number] [facility] [id number] SP [id number] BCBS [place] PPO 302/307 [id number] SP [id number] EXCELLUS BCBS P [id number] S VYA [employer]US BCBS P [id number] S [id number] Problems, Conditions, and Diagnoses Code Display Name Description Problem Type Effective Dates Data Source(s) D63.8 225813295 Anemia of chronic disease Problem 03/14/2020 12:00:00 AM EST eCW1 ([facility]) E78.00 Pure hypercholesterolemia Pure hypercholesterolemia [id number] 01/16/2020 12:00:00 AM EST [facility] I10 Essential hypertension Essential hypertension [id number] 01/16/2020 12:00:00 AM EST [facility] E11.9 Type 2 diabetes mellitus wit hout complication, without long-term current use of insulin Type 2 diabetes mellitus without complic ation, without long-term current use of insulin [id number] 01/16/2020 12:00:00 AM EST [facility] E66.01 Morbid obesity Morbid obesity [id number] 01/16/2020 12:00: 00 AM [facility] R07.89 Other chest pain Other chest pain [id number] 01/16/2020 12 :00:00 AM [facility] G89.29 Chronic pain Other chronic pain Problem 12/20/2019 12:0 0:00 AM EDT eCW1 ([facility]) I11.9 [id number] Hypertensive heart disease without heart failure Problem 05/23/2019 12:00:00 AM EDT eCW1 ([facility]) I11.9 [id number] Hypertensive heart disease without heart failure Problem 05/23/2019 12:00:00 AM EDT eCW1 ([facility]) E11.9 [id number] Type 2 diabetes sergio itus without complication, without long-term current use of insulin Problem 03/14/2019 12:00:00 AM EST eCW1 ([facility]) E11.9 [id number] Type 2 diabetes sergio itus without complication, without long-term current use of insulin Problem 03/14/2019 12:00:00 AM EST eCW1 ([facility]) R07.89 Other chest pain Other chest pain Diagnosis 01/16/2020 02 :02:11 PM EST [facility] Surgeries/Procedures Procedure Description Date Indications Data Source(s) ECG ROUTINE ECG W/LEAST 12 LDS W/I&R POCT AMB EKG Routine 01/16/2020 2:35 PM EST Other chest pain 01/16/2020 07:35:00 PM EST Other chest pain [facility] Other chest pain ESTABILISHED PATIENT [facility] CHARGE 020 12:00:00 AM EDT eCW1 ([facility]) LIPID PANEL LIPID PANEL Routine 05/23/2019 05/23/2019 1 2:00:00 AM EDT [facility] TRANS CARE MGMT 7 DAY DISCH 03/14/2019 12:00:00 AM EST eCW1 ([facility]) Results ID Date Data Source [id number] 04/11/2020 11:00:00 AM EST [facility] Name Value Range Interpretation Code Description Data Lilliam rce(s) Supporting Document(s) SARS coronavirus 2 RNA Not Detected [facility] [place] This lab was ordered by [facility] and reported by [facility]. ID Date Data Source PT & APTT 04/04/2020 12:00:00 AM EST eCW1 ([facility]) Name Value Range Interpretation Code Description Data Lilliam rce(s) Supporting Document(s) 12.2 12.5-14.3 eCW1 ([facility]) 29.7 24.2-38.5 eCW1 ([facility]) 0.89 eCW1 ([facility]) ID Date Data Source [id number] 04/04/2020 12:00:00 AM EST eCW1 ([facility]) Name Value Range Interpretation Code Description Data Lilliam rce(s) Supporting Document(s) Hemoglobin A1c/Hemoglobin.total in Blood 6.8 HEMOGLOBIN A1c eCW1 ([facility]) ID Date Data Source Comprehensive Metabolic Profile (CMP) 04/04/2020 12:00:00 AM EST eCW1 ([facility]) Name Value Range Interpretation Code Description Data Lilliam rce(s) Supporting Document(s) 0.83 0.55-1.30 CREATININE FOR GFR eCW1 ([facility]) 21 7-18 BLOOD UREA NITROGEN eCW1 ([facility]) 140 70-100 GLUCOSE, FASTING eCW1 ([facility]) > 60.0 >45 GLOMERULAR FILTRATION RATE eCW 1 ([facility]) 105 98-107 CHLORIDE LEVEL eCW1 ([facility]) 141 136-145 SODIUM LEVEL eCW1 ([facility]) 4.5 3.5-5.1 POTASSIUM SERUM eCW1 ([facility]) 27 21-32 CARBON DIOXIDE LEVEL eCW1 ([facility]) 21 12-78 ALT/SGPT eCW1 ([facility]) 9.3 8.8-10.2 CALCIUM LEVEL eCW1 ([facility]) 12 7-37 AST/SGOT eCW1 ([facility]) 118 45-117 ALKALINE PHOSPHATASE eCW1 ([facility]) 0.8 1.2-2.2 ALBUMIN/GLOBULIN RATIO eCW1 ([facility]) 7.5 6.4-8.2 TOTAL PROTEIN eCW1 ([facility]) 3.4 3.2-5.2 ALBUMIN eCW1 ([facility]) 0.4 0.2-1.0 BILIRUBIN,TOTAL eCW1 ([facility]) ID Date Data Source CBC - Complete Blood Count 04/04/2020 12:00:00 AM EST eCW1 ( [facility]) Name Value Range Interpretation Code Description Data Lilliam rce(s) Supporting Document(s) 13.5 4.0-10.0 eCW1 ([facility]) 4.01 4.00-5.40 eCW1 ([facility]) 10.6 12.0-15.5 eCW1 ([facility]) 26.4 27.0-33.0 eCW1 ([facility]) 30.0 32.0-36.5 eCW1 ([facility]) 35.3 36.0-47.0 eCW1 ([facility]) 88.0 80.0-96.0 eCW1 ([facility]) 324 150-450 eCW1 ([facility]) 17.9 11.5-14.5 eCW1 ([facility]) ID Date Data Source [id number] 02/28/2020 05:24:00 PM EST [facility] Name Value Range Interpretation Code Description Data Lilliam rce(s) Supporting Document(s) SARS coronavirus 2 RNA [Presence] in Res piratory specimen by SAM with probe detection NEGATIVE [facility] This lab was ordered by [facility] a nd reported by [facility]. ID Date Data Source [id number] 12/02/2019 12:00:00 PM EDT [facility] Name Value Range Interpretation Code Description Data Lilliam rce(s) Supporting Document(s) SARS coronavirus 2 RNA [facility] This lab was ordered by [facility] and reported by [facility]. ID Date Data Source [id number] 05/23/2019 12:00:00 AM EDT eCW1 ([facility]) Name Value Range Interpretation Code Description Data Lilliam rce(s) Supporting Document(s) Microalbumin/Creatinine [Mass Ratio] in Urine 51.3 CREATININE, URINE eCW1 ([facility]) Albumin/Creatinine [Mass Ratio] in Urine < 5.0 MALB URINE SIEMENS eCW1 ([facility]) Microalbumin/Creatinine [Ratio] in Urine 9.7 0.0-30.0 JOELLE/CREAT RATIO eCW1 ([facility]) ID Date Data Source LIPID PANEL (CARDIAC RISK) 05/23/2019 12:00:00 AM EDT eCW1 ( [facility]) Name Value Range Interpretation Code Description Data Lilliam rce(s) Supporting Document(s) Triglyceride [Mass/volume] in Serum or Plasma by calculation 118 <150 TRIGLYCERIDES LEVEL eCW1 ([facility]) Cholesterol [Moles/volume] in Serum or Plasma 240 <200 CHOLESTEROL LEVEL eCW1 ([facility]) Cholesterol in LDL [Mass/volume] in Serum or Plasma by calculation 140 <100 LDL CHOLESTEROL eC1 ([facility]) 164 NON-HDL-C eCW1 ([facility]) Cholesterol in HDL [Moles/volume] in Serum or Plasma 76 >40 HDL CHOLESTEROL eCW1 ([facility]) 3.157 <5 CHOLESTEROL RISK RATIO eCW1 ([facility]) Procedure Social History Code Duration Value Status Description Data Source(s ) Smoking 04/04/2020 12:00:00 AM EST Former Smoker completed Former Smoker eCW1 ([facility]) Smoking 04/04/2020 12:00:00 AM EST Former Smoker completed Former Smoker eCW1 ([facility]) Smoking 03/14/2020 12:00:00 AM EST Former Smoker completed Former Smoker eCW1 ([facility]) Smoking 03/14/2020 12:00:00 AM EST Former Smoker completed Former Smoker eCW1 ([facility]) Smoking 03/14/2020 12:00:00 AM EST Former Smoker completed Former Smoker eCW1 ([facility]) Alcohol intake 01/16/2020 12:00:00 AM EST Not Currently completed [facility] [facility] 01/16/2020 12:00:00 AM EST Former smoker completed Former smoker [facility] Smoking 12/21/2019 12:00:00 AM EDT Former Smoker completed Former Smoker eCW1 ([facility]) Smoking 12/21/2019 12:00:00 AM EDT Former Smoker completed Former Smoker eCW1 ([facility]) Smoking 12/21/2019 12:00:00 AM EDT Former Smoker completed Former Smoker eCW1 ([facility]) Smoking 12/21/2019 12:00:00 AM EDT Former Smoker completed Former Smoker eCW1 ([facility]) Smoking 12/21/2019 12:00:00 AM EDT Former Smoker completed Former Smoker eCW1 ([facility]) Smoking 12/21/2019 12:00:00 AM EDT Former Smoker completed Former Smoker eCW1 ([facility]) Smoking 12/21/2019 12:00:00 AM EDT Former Smoker completed Former Smoker eCW1 ([facility]) Smoking 12/21/2019 12:00:00 AM EDT Former Smoker completed Former Smoker eCW1 ([facility]) Smoking 12/21/2019 12:00:00 AM EDT Former Smoker completed Former Smoker eCW1 ([facility]) Smoking 12/07/2019 12:00:00 AM EDT Former Smoker completed Former Smoker eCW1 ([facility]) Smoking 11/28/2019 12:00:00 AM EDT Former Smoker completed Former Smoker eCW1 ([facility]) Smoking 11/28/2019 12:00:00 AM EDT Former Smoker completed Former Smoker eCW1 ([facility]) Smoking 11/28/2019 12:00:00 AM EDT Former Smoker completed Former Smoker eCW1 ([facility]) Smoking 11/28/2019 12:00:00 AM EDT Former Smoker completed Former Smoker eCW1 ([facility]) Smoking 08/28/2019 12:00:00 AM EDT Former Smoker completed Former Smoker eCW1 ([facility]) Smoking 08/28/2019 12:00:00 AM EDT Former Smoker completed Former Smoker eCW1 ([facility]) Smoking 08/28/2019 12:00:00 AM EDT Former Smoker completed Former Smoker eCW1 ([facility]) Smoking 08/28/2019 12:00:00 AM EDT Former Smoker completed Former Smoker eCW1 ([facility]) Smoking 06/26/2019 12:00:00 AM EDT Former Smoker completed Former Smoker eCW1 ([facility]) Vital Signs ID Date Data Source UNK Name Value Range Interpretation Code Description Data Source(s) Diastolic blood pressure 88 mm[Hg] 88 mm[Hg] eCW1 ([facility]) Systolic blood pressure 154 mm[Hg] 154 mm[Hg] e CW1 ([facility]) Body temperature 97.3 [degF] 97.3 [degF] eCW1 ( [facility]) Respiratory rate 18 /min 18 /min eCW1 ([facility]) Heart rate 111 /min 111 /min eCW1 ([facility]) Body mass index (BMI) [Ratio] 48.40 kg/m2 48.40 kg/m2 W1 ([facility]) Body height 64 [in_i] 64 [in_i] eCW1 ([facility]) Body weight 282 [lb_av] 282 [lb_av] eCW1 ([facility]) Diastolic blood pressure 88 mm[Hg] 88 mm[Hg] eCW1 ([facility]) Systolic blood pressure 160 mm[Hg] 160 mm[Hg] e CW1 ([facility]) Body temperature 97.2 [degF] 97.2 [degF] eCW1 ( [facility]) Respiratory rate 18 /min 18 /min eCW1 ([facility]) Heart rate 111 /min 111 /min eCW1 ([facility]) Body mass index (BMI) [Ratio] 48.40 kg/m2 48.40 kg/m2 W1 ([facility]) Body height 64 [in_i] 64 [in_i] eCW1 ([facility]) Body weight 282 [lb_av] 282 [lb_av] eCW1 ([facility]) Oxygen saturation in Arterial blood by Pulse oximetry 100 % 100 % [facility] Body mass index (BMI) [Ratio] 53.04 kg/m2 53.04 kg/m2 [facility] Body weight 131.543 kg 131.543 kg [facility] Body height 157.5 cm 157.5 cm [facility] Heart rate 92 /min 92 /min [facility] Diastolic blood pressure 74 mm[Hg] 74 mm[Hg] [facility] Systolic blood pressure 130 mm[Hg] 130 mm[Hg] [facility] Diastolic blood pressure 83 mm[Hg] 83 mm[Hg] eCW1 ([facility]) Systolic blood pressure 168 mm[Hg] 168 mm[Hg] e CW1 ([facility]) Body temperature 98.4 [degF] 98.4 [degF] eCW1 ( [facility]) Respiratory rate 18 /min 18 /min eCW1 ([facility]) Heart rate 87 /min 87 /min eCW1 ([facility]) Body mass index (BMI) [Ratio] 49.12 kg/m2 49.12 kg/m2 W1 ([facility]) Body height 64 [in_i] 64 [in_i] eCW1 ([facility]) Body weight 286.2 [lb_av] 286.2 [lb_av] eCW1 ([facility]) Respiratory rate 20 /min 20 /min MEDENT ( [facility] ) Heart rate 76 /min 76 /min MEDENT ([facility] ) Diastolic blood pressure 60 mm[Hg] 60 mm[Hg] MEDENT ([facility] ) Systolic blood pressure 110 mm[Hg] 110 mm[Hg] M EDENT ([facility] ) Diastolic blood pressure 90 mm[Hg] 90 mm[Hg] eCW1 ([facility]) Systolic blood pressure 182 mm[Hg] 182 mm[Hg] e CW1 ([facility]) Body temperature 99.2 [degF] 99.2 [degF] eCW1 ( [facility]) Respiratory rate 18 /min 18 /min eCW1 ([facility]) Heart rate 92 /min 92 /min eCW1 ([facility]) Body mass index (BMI) [Ratio] 49.88 kg/m2 49.88 kg/m2 W1 ([facility]) Body height 64 [in_i] 64 [in_i] eCW1 ([facility]) Body weight 290.6 [lb_av] 290.6 [lb_av] eCW1 ([facility]) Diastolic blood pressure 91 mm[Hg] 91 mm[Hg] eCW1 ([facility]) Systolic blood pressure 170 mm[Hg] 170 mm[Hg] e CW1 ([facility]) Body temperature 98.0 [degF] 98.0 [degF] eCW1 ( [facility]) Respiratory rate 18 /min 18 /min eCW1 ([facility]) Heart rate 86 /min 86 /min eCW1 ([facility]) Body mass index (BMI) [Ratio] 50.12 kg/m2 50.12 kg/m2 eCW1 ([facility]) Body height 64 [in_i] 64 [in_i] eCW1 ([facility]) Body weight 292.0 [lb_av] 292.0 [lb_av] eCW1 ([facility]) Diastolic blood pressure 82 mm[Hg] 82 mm[Hg] eCW1 ([facility]) Systolic blood pressure 176 mm[Hg] 176 mm[Hg] e CW1 ([facility]) Body temperature 96.0 [degF] 96.0 [degF] eCW1 ( [facility]) Respiratory rate 20 /min 20 /min eCW1 ([facility]) Heart rate 96 /min 96 /min eCW1 ([facility]) Body mass index (BMI) [Ratio] 49.33 kg/m2 49.33 kg/m2 eCW1 ([facility]) Body height 64 [in_us] 64 [in_us] eCW1 ([facility]) Body weight Measured 287.4 [lb_av] 287.4 [lb_av ] eCW1 ([facility]) Diastolic blood pressure 82 mm[Hg] 82 mm[Hg] eCW1 ([facility]) Systolic blood pressure 148 mm[Hg] 148 mm[Hg] e CW1 ([facility]) Body temperature 98.2 [degF] 98.2 [degF] eCW1 ( [facility]) Respiratory rate 20 /min 20 /min eCW1 ([facility]) Heart rate 90 /min 90 /min eCW1 ([facility]) Body mass index (BMI) [Ratio] 48.06 kg/m2 48.06 kg/m2 eCW1 ([facility]) Body height 64 [in_us] 64 [in_us] eCW1 ([facility]) Body weight Measured 280 [lb_av] 280 [lb_av] eC W1 ([facility]) Diastolic blood pressure 97 mm[Hg] 97 mm[Hg] eCW1 ([facility]) Systolic blood pressure 130 mm[Hg] 130 mm[Hg] e CW1 ([facility]) Body temperature 96.9 [degF] 96.9 [degF] eCW1 ( [facility]) Respiratory rate 20 /min 20 /min eCW1 ([facility]) Heart rate 115 /min 115 /min eCW1 ([facility]) Body mass index (BMI) [Ratio] 43.05 kg/m2 43.05 kg/m2 eCW1 ([facility]) Body height 64 [in_us] 64 [in_us] eCW1 ([facility]) Body weight Measured 250.8 [lb_av] 250.8 [lb_av ] eCW1 ([facility]) Diastolic blood pressure 90 mm[Hg] 90 mm[Hg] eCW1 ([facility]) Systolic blood pressure 144 mm[Hg] 144 mm[Hg] e CW1 ([facility]) Body temperature 98.0 [degF] 98.0 [degF] eCW1 ( [facility]) Respiratory rate 22 /min 22 /min eCW1 ([facility]) Heart rate 100 /min 100 /min eCW1 ([facility]) Body mass index (BMI) [Ratio] 46.86 kg/m2 46.86 kg/m2 eCW1 ([facility]) Body height 64 [in_us] 64 [in_us] eCW1 ([facility]) Body weight Measured 273 [lb_av] 273 [lb_av] eC W1 ([facility]) Patient Treatment Plan of Care Planned Activity Planned Date Details Description Data Source (s) Acetaminophen 325 MG / Oxycodone Hydrochloride 10 MG O ral Tablet [Percocet] 03/27/2020 12:00:00 AM EST eCW1 ([facility]) Acetaminophen 325 MG / Oxycodone Hydrochloride 10 MG O ral Tablet [Percocet] 02/21/2020 12:00:00 AM EST eCW1 ([facility]) Acetaminophen 325 MG / Oxycodone Hydrochloride 10 MG O ral Tablet [Percocet] 02/21/2020 12:00:00 AM EST eCW1 ([facility]) gabapentin 400 MG Oral Capsule 01/15/2020 12:00:00 AM EST [facility] Metoprolol Tartrate 25 MG Oral Tablet 01/05/2020 12:00:00 AM EST [facility] Diazepam 5 MG Oral Tablet 01/04/2020 12:00:00 AM EST [facility] Acetaminophen 325 MG / Oxycodone Hydrochloride 10 MG O ral Tablet [Percocet] 01/02/2020 12:00:00 AM EST eCW1 ([facility]) Acetaminophen 325 MG / Oxycodone Hydrochloride 10 MG O ral Tablet 01/02/2020 12:00:00 AM EST [facility] Acetaminophen 325 MG / Oxycodone Hydrochloride 10 MG O ral Tablet [Percocet] 01/02/2020 12:00:00 AM EST eCW1 ([facility]) Acetaminophen 325 MG / Oxycodone Hydrochloride 10 MG O ral Tablet [Percocet] 01/02/2020 12:00:00 AM EST eCW1 ([facility]) Lisinopril 20 MG Oral Tablet 01/01/2020 12:00:00 AM EST [facility] Nortriptyline 25 MG Oral Capsule 01/01/2020 12:00:00 AM EST [facility] Baclofen 20 MG Oral Tablet 12/27/2019 12:00:00 AM EST [facility] topiramate 100 MG Oral Tablet 12/18/2019 12:00:00 AM EDT [facility] duloxetine 30 MG Delayed Release Oral Capsule 11/26/2019 12:00:00 A M EDT [facility] Metformin hydrochloride 850 MG Oral Tablet 11/21/2019 12:00:00 AM E DT [facility] Lisinopril 20 MG Oral Tablet 03/14/2019 12:00:00 AM EST eCW1 ([facility]) Metoprolol Tartrate 25 MG Oral Tablet 03/14/2019 12:00:00 AM EST eCW1 ([facility]) Lisinopril 20 MG Oral Tablet 03/14/2019 12:00:00 AM EST eCW1 ([facility]) Metoprolol Tartrate 25 MG Oral Tablet 03/04/2019 12:00:00 AM EST eCW1 ([facility]) Metoprolol Tartrate 25 MG Oral Tablet 03/04/2019 12:00:00 AM EST eCW1 ([facility]) Aspirin 500 MG / Caffeine 32.5 MG Oral Tablet [Junior B ack and Body Pain] 03/04/2019 12:00:00 AM EST eCW1 ([facility]) Tom 03/04/2019 12:00:00 AM EST e CW1 ([facility])
[2020-04-16] MEDS ORDERED: BUPIVACAINE HCL 0.25% 30ML VIAL As Ordered ONE (12:36)
[2020-04-16] MEDS ORDERED: CONRAY-60 60% 50ML VIAL (Q9961) As Ordered ONE (12:37)
[2020-04-16] MEDS ORDERED: ROCURONIUM BROMIDE 50 MG/5 ML VIAL As Ordered ONE (14:02)
[2020-04-16] MEDS ORDERED: fentaNYL 100 MCG/2 ML INJECTION (J3010) As Ordered ONE (14:20)
[2020-04-16] MEDS ORDERED: LABETALOL 100MG/20ML VIAL As Ordered ONE (14:40)
[2020-04-16] MEDS ORDERED: ESMOLOL INJ 100MG/10ML VIAL As Ordered ONE (15:50)
[2020-04-16] MEDS ORDERED: LR 1,000 ML IV SCH (16:30)
[2020-04-16] MEDS ORDERED: oxyCODONE 5MG TAB PO PRN (16:30)
[2020-04-16] MEDS ORDERED: ACETAMINOPHEN TAB 650MG DOSE (2X325MG) PO PRN (16:30)
[2020-04-16] MEDS ORDERED: fentaNYL 100 MCG/2 ML INJECTION (J3010) IV PRN (16:30)
[2020-04-16] MEDS ORDERED: ONDANSETRON 4MG/2ML VIAL IV PRN (16:30)
[2020-04-16 20:40] VITALS: BP 125/73
[2020-04-17] MEDS ORDERED: UNRESOLVED CLARIFICATION ENTRY XX SCH (00:01)
--- NOTE | 2020-04-17 18:28 | RO ---
OPERATIVE NOTE DATE OF OPERATION: 04/16/2020 PREOPERATIVE DIAGNOSIS: Gallstones with recent gallstone pancreatitis. POSTOPERATIVE DIAGNOSIS: Gallstones with recent gallstone pancreatitis. PROCEDURE: Robotic-assisted laparoscopic cholecystectomy. SURGEON: Chente German MD URGENT CARE TECHNICIAN: None. ANESTHESIA: General. INDICATIONS FOR THE PROCEDURE: The patient is a 64-year-old woman who was recently treated for pancreatitis and was found to have multiple gallstones. She is now for a robotic-assisted laparoscopic cholecystectomy. DESCRIPTION OF PROCEDURE: The patient was brought to the operating room and placed on the table in a supine position. She was placed under general endotracheal anesthesia. The patient's abdomen was prepped and draped in sterile fashion and 0.25% Marcaine was infiltrated at each of the trocar sites as needed. A short transverse incision was made in the left upper quadrant approximately 6 to 8 cm above the level of the umbilicus. A Veress needle was inserted and after a positive hanging drop test, the abdomen was inflated with CO2 gas. The pressures were somewhat elevated but there did appear to be insufflation of the abdomen. The Veress needle was removed and an 8 mm robotic port was placed over the scope and advanced through the abdominal wall without difficulty. On entering the abdomen there was clearly a free space within the abdomen. It was clear that there was also some insufflation of gas into the omentum. The liver was well seen but the omentum was covering the inferior aspect of the right lobe of the liver and the area of the gallbladder. She was rolled slightly to the left and placed into a slight reverse Trendelenburg position. Three additional trocar sites were outlined across the abdomen and local anesthesia was achieved. One of these was about at the level of the umbilicus and slightly to the right of the midline and the other two were spaced out and into the right lower quadrant. With the trocars all in place, the patient cart to the [employer] robot was brought into position and the endoscope arm was docked to the port just to the right of the umbilicus. Targeting took place in the right upper quadrant. The other arms were then docked to the appropriate trocars. A Hook cautery, fenestrated bipolar, and grasping retractor were inserted. I then moved to the control console to proceed with the operation. Initially the omentum was pulled down off the liver. There were some adhesions of the omentum to the lateral abdominal wall by the edge of the liver, and these were lysed to allow the omentum to be better displaced. The gallbladder was noted and was clearly filled with stones. It was possible to grasp the gallbladder and this was elevated. The liver appeared somewhat cube cutter and yellowish in color with blunting of the edges consistent with some fatty liver changes. Dissection was begun near the gallbladder neck. It was difficult to expose this area completely because of the thickening of the liver and the abundant omental fat. The peritoneum was opened using the Hook cautery and dissection through the pericholecystic tissues identified the cystic duct. This appeared to be fairly short but it was clearly the cystic duct. There were several small arterial branches identified arising from the hepatic artery and going to the gallbladder. The cystic duct and the major arterial branch were both doubly clipped with Hem-o-mitzy clips and divided. An additional small arterial branch was identified and this was clipped and divided as well. The gallbladder was dissected free from the gallbladder bed using cautery dissection. The gallbladder was not perforated in the course of dissection. The dissection proceeded through the body and to the fundus of the gallbladder completely freeing the gallbladder. The gallbladder was placed in a specimen retrieval pouch and set aside. The right upper quadrant was inspected and there was no evidence of bleeding or bile leak. The robotic instruments were then removed and the robot was undocked and withdrawn. I returned to the patient's side. The gallbladder was delivered through the right mid abdominal port site. The incision was extended transversely but the rectus sheath was opened longitudinally as a muscle splitting approach. It was necessary to extend this incision to perhaps 4 cm to allow passage of the gallbladder which was packed full of stones. The posterior fascia of the rectus sheath was closed with a running suture of 1-0 Vicryl. The anterior sheath was also closed with interrupted simple sutures of 1-0 Vicryl. Some additional 0.25% Marcaine was infiltrated at this site. The skin incisions were all closed with buried 4-0 Vicryl and Steri-Strips. Light dressings were applied. The patient tolerated the procedure well without apparent complication. She was awakened in the operating room, extubated, and moved to the recovery room in stable condition. TITUS
== END 2020-04-16 19:05 | disposition home or self-care (01) ==
LOC: M SDC 11:22
PROVIDERS: ATTEND Surgery
DX: K80.10 Calculus of gallbladder with chronic cholecystitis without obstruction (principal); I10 Essential (primary) hypertension; E78.49 Other hyperlipidemia; E11.9 Type 2 diabetes mellitus without complications; M79.7 Fibromyalgia; F43.10 Post-traumatic stress disorder, unspecified; F32.9 Major depressive disorder, single episode, unspecified; F41.9 Anxiety disorder, unspecified; G43.909 Migraine, unspecified, not intractable, without status migrainosus; G47.33 Obstructive sleep apnea (adult) (pediatric); Z79.84 Long term (current) use of oral hypoglycemic drugs; E66.01 Morbid (severe) obesity due to excess calories; Z87.891 Personal history of nicotine dependence; Z88.8 Allergy status to other drugs, medicaments and biological substances; Z79.899 Other long term (current) drug therapy
CPT/HCPCS: 47562; 88304; J1100; J1885; J2250; J2370; J2405; J3010; S2900

== ENCOUNTER → 2020-05-16 | Outpatient (CLI) | payer OTHER ==
[~2020-05-16] MED LIST changes: -KETOROLAC 60MG 2ML VIAL As Ordered ONE; -LIDOCAINE 2% 100MG/5ML SDV (FOR ANES.) As Ordered ONE; -LR 1,000 ML IV ONE; -MIDAZOLAM INJ 2MG/2ML VIAL (J2250 PER 1MG) As Ordered ONE; -ONDANSETRON 4MG/2ML VIAL As Ordered ONE; -PHENYLephrine 500MCG 5ML (100MCG/ML) SYRINGE As Ordered ONE; -ROCURONIUM BROMIDE 50 MG/5 ML VIAL As Ordered ONE; -SUGAMMADEX SODIUM 500 MG/5 ML VIAL (BRIDION) As Ordered ONE; -cefoTEtan DISODIUM 2 GM in D5W MINI-BAG PLUS 50 ML IV ONE; -dexameTHASONE 4 MG/ML 1ML VIAL (J1100 PER 1MG) As Ordered ONE; -ePHEDrine SULFATE 25 MG/5 ML(5MG/ML) SYRINGE As Ordered ONE; -fentaNYL 250 MCG/5 ML INJECTION (J3010) As Ordered ONE; -propofoL 200 MG/20 ML VIAL As Ordered ONE
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
== END ==
LOC: M PAIN 11:00
PROVIDERS: ATTEND Family Medicine
DX: M54.5 Low back pain (principal); F32.9 Major depressive disorder, single episode, unspecified; E11.9 Type 2 diabetes mellitus without complications; E55.9 Vitamin D deficiency, unspecified; I10 Essential (primary) hypertension; G47.33 Obstructive sleep apnea (adult) (pediatric); M79.7 Fibromyalgia; Z87.891 Personal history of nicotine dependence; Z79.891 Long term (current) use of opiate analgesic; Z79.899 Other long term (current) drug therapy; Z88.8 Allergy status to other drugs, medicaments and biological substances; Z91.048 Other nonmedicinal substance allergy status

== ENCOUNTER → 2020-06-11 | Outpatient (REF) | payer MEDICARE, OTHER ==
[~2020-06-11] MED LIST changes: +CVS1CAP2 PO; +GABA-283 PO; -GABA-845 PO
[2020-06-12 13:19] LABS: HEMATOCRIT 35.4 % (36.0-47.0); HEMOGLOBIN 10.5 g/dl (12.0-15.5); MEAN CORPUSCULAR HEMOGLOBIN 26.6 pg (27.0-33.0); MEAN CORPUSCULAR HGB CONC 29.7 g/dl (32.0-36.5); MEAN CORPUSCULAR VOLUME 89.8 fl (80.0-96.0); PLATELET COUNT, AUTOMATED 364 10^3/uL (150-450); RED BLOOD COUNT 3.94 10^6/uL (4.00-5.40); WHITE BLOOD COUNT 11.7 10^3/uL (4.0-10.0)
[2020-06-12 13:38] LABS: HEMOGLOBIN A1c 7.1 %
[2020-06-12 14:24] LABS: ALBUMIN 3.2 GM/DL (3.2-5.2); ALT/SGPT 22 U/L (12-78); BILIRUBIN,TOTAL 0.2 MG/DL (0.2-1.0); BLOOD UREA NITROGEN 22 MG/DL (7-18); CALCIUM LEVEL 9.1 MG/DL (8.8-10.2); CARBON DIOXIDE LEVEL 27 MEQ/L (21-32); CHLORIDE LEVEL 107 MEQ/L (98-107); CREATININE FOR GFR 0.98 MG/DL (0.55-1.30); GLOMERULAR FILTRATION RATE > 60.0 (>45); GLUCOSE, FASTING 185 MG/DL (70-100); POTASSIUM SERUM 4.7 MEQ/L (3.5-5.1); SODIUM LEVEL 141 MEQ/L (136-145); TOTAL PROTEIN 7.2 GM/DL (6.4-8.2)
[2020-06-14 14:09] LABS: TOPIRAMATE LEVEL 8.1 ug/mL (2.0-25.0)
== END ==
LOC: M SFHCADAM 16:10
PROVIDERS: ATTEND Family Medicine
DX: E11.9 Type 2 diabetes mellitus without complications (principal); D63.8 Anemia in other chronic diseases classified elsewhere; F32.9 Major depressive disorder, single episode, unspecified; G40.509 Epileptic seizures related to external causes, not intractable, without status epilepticus
CPT/HCPCS: 80053; 80299; 83036; 84439; 84443; 85027; G0463

== ENCOUNTER → 2020-06-20 | Outpatient (CLI) | payer MEDICARE, OTHER | LOC: M LABSMTC 09:35 | PROVIDERS: ATTEND Anesthesiology | DX: Z01.818 Encounter for other preprocedural examination (principal); Z11.52 Encounter for screening for COVID-19 ==

== ENCOUNTER → 2020-06-24 | Outpatient (CLI) | payer MEDICARE ==
[~2020-06-24] MED LIST changes: -GABA-283 PO; +GABA-845 PO
--- NOTE | 2020-06-24 14:25 | REP ---
INDICATION: LEFT SHOULDER PAIN COMPARISON: 08/12/2018. TECHNIQUE: Three views left shoulder. FINDINGS: There is no evidence of acute fracture, dislocation, or intrinsic bone disease.There is mild narrowing and spurring at the acromioclavicular and glenohumeral joints unchanged. IMPRESSION: Stable degenerative changes. <Electronically signed by Charly Isidro > 06/24/20 [id number]
== END ==
LOC: M RAD 12:32
PROVIDERS: ATTEND Physician Assistant Medical
DX: M25.512 Pain in left shoulder (principal)

== ENCOUNTER → 2020-08-06 | Outpatient (CLI) | payer MEDICARE, OTHER ==
[~2020-08-06] MED LIST changes: +GABA-283 PO; -GABA-845 PO
--- NOTE | 2020-08-06 15:32 | REPVR ---
PROCEDURE INFORMATION: Exam: MR Cervical Spine Without Contrast Exam date and time: 08/06/2020 3:03 PM Age: 64 years old Clinical indication: Pain; Cervicalgia; Additional info: Thoracic pain cervicalgia lbp TECHNIQUE: Imaging protocol: Multiplanar magnetic resonance images of the cervical spine without contrast. COMPARISON: No relevant prior studies available. FINDINGS: Vertebrae: Unremarkable. Spinal cord: Normal signal. No cord compression. C2-C3: No significant disc disease. No significant spinal stenosis. C3-C4: No significant disc disease. No significant spinal stenosis. C4-C5: No significant disc disease. No significant spinal stenosis. C5-C6: There is disc desiccation. There is a moderate disc/osteophyte complex that flattens the ventral thecal sac. C6-C7: There is a moderate disc/osteophyte complex that flattens the ventral thecal sac. There is bilateral uncovertebral joint arthropathy, worse on the left. There is severe left-sided neuroforaminal narrowing. There is moderate right-sided neuroforaminal narrowing. C7-T1: No significant disc disease. No significant spinal stenosis. Soft tissues: Unremarkable. Vertebral arteries: Expected flow voids in the vertebral arteries. IMPRESSION: Mild degenerative changes as described above, most marked at C6/7. Please see details above. Electronically signed by: Charles De Souza On 08/06/2020 15:32:16 PM
--- NOTE | 2020-08-06 15:34 | REPVR ---
PROCEDURE INFORMATION: Exam: MR Thoracic Spine Without Contrast Exam date and time: 08/06/2020 3:03 PM Age: 64 years old Clinical indication: Pain in thoracic spine; Without myelpathy or radiculopathy; Additional info: Pain in thoracic and low back TECHNIQUE: Imaging protocol: Multiplanar magnetic resonance images of the thoracic spine without contrast. COMPARISON: CR Spine, Thoracic 3 VIEWS 04/09/2015 7:53 AM FINDINGS: Vertebrae: Unremarkable. Spinal cord: See "Discs/Spinal canal/Neural foramina" finding. Discs/Spinal canal/Neural foramina: There are degenerative changes throughout the thoracic spine including disc space narrowing, disc desiccation, and disc bulging. There is a mild central disc herniation at T8/9. There is no significant spinal canal stenosis. There is no cord compression. Soft tissues: Unremarkable. IMPRESSION: There are degenerative changes throughout the thoracic spine including disc space narrowing, disc desiccation, and disc bulging. There is a mild central disc herniation at T8/9. There is no significant spinal canal stenosis. There is no cord compression. Electronically signed by: Charles De Souza On 08/06/2020 15:34:13 PM
--- NOTE | 2020-08-06 15:39 | REPVR ---
PROCEDURE INFORMATION: Exam: MR Lumbar Spine Without Contrast Exam date and time: 08/06/2020 3:03 PM Age: 64 years old Clinical indication: Low back pain; Additional info: Pain in thoracic and low back TECHNIQUE: Imaging protocol: Multiplanar magnetic resonance images of the lumbar spine without intravenous contrast. COMPARISON: No relevant prior studies available. FINDINGS: Vertebrae: Unremarkable. Spinal cord: Normal signal. No cord compression. L1-L2: There is disc desiccation. There is facet arthropathy and ligamentum flavum hypertrophy. L2-L3: There is degenerative disc disease including disc space narrowing and dessication. There is mild disc bulging. There is facet arthropathy and ligamentum flavum hypertrophy. There is mild spinal canal stenosis. L3-L4: There is disc desiccation. There is mild disc bulging. There is facet arthropathy and ligamentum flavum hypertrophy. L4-L5: There is disc desiccation. There is mild disc bulging. There is exuberant facet arthropathy and ligamentum flavum hypertrophy. There is compromise of the lateral recesses bilaterally. There is moderate spinal canal stenosis. L5-S1: There is disc space narrowing and desiccation. There are moderate degenerative end plate changes at this level. There is a moderate disc bulge with a small superimposed central disc herniation. There is facet arthropathy and ligamentum flavum hypertrophy. Soft tissues: Unremarkable. Reproductive: There is a cystic lesion in the right adnexa, not imaged in its entirety on this exam. IMPRESSION: 1. Mild multilevel degenerative changes causing variable degrees of spinal canal and neuroforaminal narrowing as described above. 2. There is a cystic lesion in the right adnexa, not imaged in its entirety on this exam. Followup pelvic ultrasound is recommended. Electronically signed by: Charlse De Souza On 08/06/2020 15:39:06 PM
== END ==
LOC: M PLARAD 07-02 12:06 → M RAD 12:12
PROVIDERS: ATTEND Physician Assistant Medical
DX: M54.12 Radiculopathy, cervical region (principal); M54.2 Cervicalgia; M79.602 Pain in left arm

== ENCOUNTER 2020-08-15 11:10 | Emergency (ER) | payer MEDICARE ==
[~2020-08-15] VITALS: Ht 157.5 cm; Wt 130.4 kg
[2020-08-15] MEDS ORDERED: ZINC1TAB2 PO (11:28)
[2020-08-15 12:39] LABS: BASO % 0.3 % (0.0-1.0); EOS # 0.3 10^3/uL (0.0-0.5); HEMATOCRIT 35.9 % (36.0-47.0); HEMOGLOBIN 10.6 g/dl (12.0-15.5); LYMPH # 1.8 10^3/uL (1.5-5.0); LYMPH % 11.7 % (24.0-44.0); MEAN CORPUSCULAR HEMOGLOBIN 26.2 pg (27.0-33.0); MEAN CORPUSCULAR HGB CONC 29.5 g/dl (32.0-36.5); MEAN CORPUSCULAR VOLUME 88.9 fl (80.0-96.0); MONO # 0.9 10^3/uL (0.0-0.8); MONO % 5.8 % (2.0-8.0); NEUTROPHILS # 12.6 10^3/uL (1.5-8.5); NEUTROPHILS % 79.8 % (36.0-66.0); PLATELET COUNT, AUTOMATED 343 10^3/uL (150-450); RED BLOOD COUNT 4.04 10^6/uL (4.00-5.40); WHITE BLOOD COUNT 15.8 10^3/uL (4.0-10.0)
--- NOTE | 2020-08-15 13:14 | REP ---
INDICATION: pain in temples. COMPARISON: None. TECHNIQUE: CT brain performed in the axial plane. Coronal reconstruction images are performed. FINDINGS: The ventricles are normal in size and position.. There is no midline shift or mass effect. Isidro-white differentiation is well maintained. There stable bilateral basal ganglia calcifications and periventricular small vessel ischemic changes. There is no acute intracranial hemorrhage or extra-axial fluid collection. Bone window examination is unremarkable. The visualized mastoid air cells and paranasal sinuses are clear. IMPRESSION: No acute abnormalities. <Electronically signed by Charly Isidro > 08/15/20 131
--- NOTE | 2020-08-15 13:16 | REP ---
INDICATION: sob COMPARISON: 02/28/2020. TECHNIQUE: PA/Lateral FINDINGS: Lungs: Clear, no infiltrate. Heart: The heart is mildly enlarged. Mediastinum: Mediastinal silhouette unremarkable. Pleural angles: Unremarkable.. Bones and soft tissues: There are degenerative changes of the spine without compression deformity. IMPRESSION: No acute pulmonary disease. Mild cardiomegaly. <Electronically signed by Charly Isidro > 08/15/20 1313
[2020-08-15 13:47] LABS: ALBUMIN 3.2 GM/DL (3.2-5.2); ALT/SGPT 23 U/L (12-78); BILIRUBIN,TOTAL 0.2 MG/DL (0.2-1.0); BLOOD UREA NITROGEN 23 MG/DL (7-18); CALCIUM LEVEL 8.8 MG/DL (8.8-10.2); CARBON DIOXIDE LEVEL 25 MEQ/L (21-32); CHLORIDE LEVEL 108 MEQ/L (98-107); CK-MB VALUE MASS 1.1 NG/ML (<3.6); CPK CREATINE PHOSPHOKINASE 59 U/L (26-192); CREATININE FOR GFR 0.85 MG/DL (0.55-1.30); FREE T4 0.77 NG/DL (0.76-1.46); GLOMERULAR FILTRATION RATE > 60.0 (>45); GLUCOSE, FASTING 202 MG/DL (70-100); MAGNESIUM LEVEL 1.9 MG/DL (1.8-2.4); MB/CK RELATIVE INDEX 1.86 (< OR =4); NT-PRO BNP 36 PG/ML (<125); POTASSIUM SERUM 3.7 MEQ/L (3.5-5.1); SODIUM LEVEL 140 MEQ/L (136-145); TOTAL PROTEIN 7.6 GM/DL (6.4-8.2); TROPONIN I < 0.02 NG/ML (< 0.10)
[2020-08-15 14:19] LABS: ERYTHROCYTE SEDIMENTATION RATE 59 mm/hr (0-30)
[2020-08-15 15:03] VITALS: BP 180/100
--- NOTE | 2020-08-15 21:04 | ECGEPIP ---
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 Order Number: [id number] Reading MD: Mario Davis Measurements Intervals [place] Rate: 98 P: 73 CO: 172 QRS: 6 QRSD: 102 T: 53 QT: 372 QTc: 474 Interpretive Statements Normal sinus rhythm MODERATE INTRAVENTRICULAR CONDUCTION DELAY POOR R WAVE PROGRESSION SIMILAR TO 08/26/19 Electronically Signed on 08-15-2020 21:04:45 EDT by Mario Davis
== END 2020-08-15 15:27 | disposition home or self-care (01) ==
LOC: M ED 11:10
DX: I10 Essential (primary) hypertension (principal); E11.9 Type 2 diabetes mellitus without complications; R06.02 Shortness of breath; G47.33 Obstructive sleep apnea (adult) (pediatric); F33.9 Major depressive disorder, recurrent, unspecified; F41.9 Anxiety disorder, unspecified; Z79.899 Other long term (current) drug therapy; Z79.84 Long term (current) use of oral hypoglycemic drugs; Z79.82 Long term (current) use of aspirin; Z88.8 Allergy status to other drugs, medicaments and biological substances; Z91.048 Other nonmedicinal substance allergy status; Z87.891 Personal history of nicotine dependence; F12.20 Cannabis dependence, uncomplicated

== ENCOUNTER → 2020-08-29 | Outpatient (CLI) | payer MEDICARE ==
[~2020-08-29] MED LIST changes: +ZINC1TAB2 PO
[2020-08-29 12:30] LABS: HEMOGLOBIN A1c 7.4 %
[2020-08-29 12:37] LABS: FERRITIN 30 NG/ML (8-252); IRON (FE) 43 UG/DL (50-170); PERCENT SATURATION 13.4 % (13.2-45.0); TOTAL IRON BINDING CAPACITY 321 UG/DL (250-450)
[2020-08-29 12:47] LABS: MALB URINE SIEMENS 11.6 MG/L; MAU/CREAT RATIO 10.7 MCG/MG (0.0-30.0)
[2020-08-29 12:56] LABS: FOLATE > 24.0 NG/ML
[2020-08-29 13:15] LABS: VITAMIN B12 LEVEL 203 PG/ML
== END ==
LOC: M LAB 10:47
PROVIDERS: ATTEND Physician Assistant
DX: N83.201 Unspecified ovarian cyst, right side (principal); E11.9 Type 2 diabetes mellitus without complications; D64.9 Anemia, unspecified; I11.9 Hypertensive heart disease without heart failure

== ENCOUNTER → 2020-08-29 | Outpatient (CLI) | payer MEDICARE ==
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
== END ==
LOC: M PAIN 09:45
PROVIDERS: ATTEND Family Medicine
DX: M79.18 Myalgia, other site (principal); E11.9 Type 2 diabetes mellitus without complications; E55.9 Vitamin D deficiency, unspecified; G47.33 Obstructive sleep apnea (adult) (pediatric); Z86.59 Personal history of other mental and behavioral disorders; Z87.891 Personal history of nicotine dependence; Z88.8 Allergy status to other drugs, medicaments and biological substances; Z91.09 Other allergy status, other than to drugs and biological substances; E66.01 Morbid (severe) obesity due to excess calories; Z68.42 Body mass index [BMI] 45.0-49.9, adult; Z79.84 Long term (current) use of oral hypoglycemic drugs; Z79.899 Other long term (current) drug therapy
CPT/HCPCS: 36415; 82043; 82607; 82728; 82746; 83036; 83550; G0463

== ENCOUNTER → 2020-09-18 | Outpatient (CLI) | payer MEDICARE ==
--- NOTE | 2020-09-18 16:05 | REP ---
INDICATION: RT OVARIAN CYST. COMPARISON: No prior pelvic ultrasound examination for comparison TECHNIQUE: Transvesical and transvaginal imaging FINDINGS: The uterus measures 7.3 x 2.9 x 3.5 cm. The parenchymal echo pattern is within normal limits. No definite masses are identified. The endometrial echo complex measures 3 mm in its greatest thickness and is somewhat heterogenous. There is no free fluid in cul-de-sac. The right ovary measures 2.2 x 1.4 x 1.8 cm and is poorly visualized but is without evidence of a gross abnormality. The left ovary was not seen transvesically or transvaginally. Urinary bladder measures 14 x 8 by left cm. IMPRESSION: The examination is somewhat limited as described above. The cystic lesion seen previously on the lumbar spine MRI of 08/06/2020 is not present on today's ultrasound exam. Consider pelvic MRI before and after intravenous gadolinium. <Electronically signed by Wei Boone > 09/18/20 [id number]
== END ==
LOC: M RAD 14:42
PROVIDERS: ATTEND Physician Assistant
DX: N83.201 Unspecified ovarian cyst, right side (principal)

== ENCOUNTER → 2020-10-01 | Outpatient (CLI) | payer MEDICARE ==
--- NOTE | 2020-10-01 16:36 | REP ---
INDICATION: LT SHOULDER PAIN. COMPARISON: None. TECHNIQUE: Coronal oblique T1 and fat suppressed T2. Sagittal oblique fat suppressed T2. Axial ncomj-[id number]-fins and T2 FLASH. FINDINGS: There is moderate patchy and linear T2 hyper signal seen throughout the supraspinatus tendon. The supraspinatus muscle is atrophied. There is moderate to severe hypertrophic degenerative change seen involving the acromioclavicular joint. The acromion process is type 2 with a spur arising from the inferior surface at the AC joint. Patchy T2 hyper signal is seen within the subscapularis tendon and infraspinatus tendon. The biceps tendon resides within the bicipital groove. There is no glenohumeral joint effusion. There is fluid in the subcoracoid recess. There is cystic degenerative change in the superolateral humeral head. There is evidence of cortical humeral and particularly coracoacromial ligamentous thickening. IMPRESSION: 1. AC joint DJD and acromion process as described above. 2. Supraspinatus tendinitis/tendinosis with evidence of impingement syndrome and ligamentous thickening as described above. 3. Subscapularis and infraspinatus tendinitis/tendinosis. 4. Other chronic changes as described above. <Electronically signed by Wei Boone > 10/01/20 [id number]
== END ==
LOC: M PLAIMG 15:26
PROVIDERS: ATTEND Physician Assistant Medical
DX: R93.7 Abnormal findings on diagnostic imaging of other parts of musculoskeletal system (principal); M25.512 Pain in left shoulder

== ENCOUNTER → 2020-11-29 | Outpatient (CLI) | payer MEDICARE | LOC: M PAIN 11:15 | PROVIDERS: ATTEND Anesthesiology | DX: M51.16 Intervertebral disc disorders with radiculopathy, lumbar region (principal); M54.2 Cervicalgia; F32.9 Major depressive disorder, single episode, unspecified; E11.9 Type 2 diabetes mellitus without complications; E55.9 Vitamin D deficiency, unspecified; E78.00 Pure hypercholesterolemia, unspecified; G47.33 Obstructive sleep apnea (adult) (pediatric); M79.7 Fibromyalgia; I10 Essential (primary) hypertension; Z87.891 Personal history of nicotine dependence; Z79.899 Other long term (current) drug therapy; Z79.84 Long term (current) use of oral hypoglycemic drugs; Z88.8 Allergy status to other drugs, medicaments and biological substances; Z91.048 Other nonmedicinal substance allergy status ==

== ENCOUNTER → 2021-01-02 | Outpatient (CLI) | payer MEDICARE ==
[2021-01-06 23:07] LABS: TOPIRAMATE LEVEL 10.2 ug/mL (2.0-25.0)
== END ==
LOC: M LAB 09:44
PROVIDERS: ATTEND Physician Assistant Medical
DX: R56.9 Unspecified convulsions (principal)

== ENCOUNTER → 2021-01-02 | Outpatient (CLI) | payer MEDICARE ==
[2021-01-02 10:20] LABS: HEMATOCRIT 34.4 % (36.0-47.0); HEMOGLOBIN 10.9 g/dl (12.0-15.5); MEAN CORPUSCULAR HEMOGLOBIN 28.1 pg (27.0-33.0); MEAN CORPUSCULAR HGB CONC 31.7 g/dl (32.0-36.5); MEAN CORPUSCULAR VOLUME 88.7 fl (80.0-96.0); PLATELET COUNT, AUTOMATED 328 10^3/uL (150-450); RED BLOOD COUNT 3.88 10^6/uL (4.00-5.40)
[2021-01-02 10:49] LABS: ALT/SGPT 23 U/L (12-78); BILIRUBIN,TOTAL 0.1 MG/DL (0.2-1.0); BLOOD UREA NITROGEN 22 MG/DL (7-18); CALCIUM LEVEL 9.1 MG/DL (8.8-10.2); CARBON DIOXIDE LEVEL 27 MEQ/L (21-32); CHLORIDE LEVEL 108 MEQ/L (98-107); CHOLESTEROL LEVEL 222 MG/DL (<200); CHOLESTEROL RISK RATIO 3.313 (<5); CREATININE FOR GFR 0.83 MG/DL (0.55-1.30); FREE T4 0.81 NG/DL (0.76-1.46); GLOMERULAR FILTRATION RATE > 60.0 (>45); GLUCOSE, FASTING 141 MG/DL (70-100); HDL CHOLESTEROL 67 MG/DL (>40); LDL CHOLESTEROL 91 MG/DL (<100); NON-HDL-C 155 MG/DL; POTASSIUM SERUM 4.3 MEQ/L (3.5-5.1); SODIUM LEVEL 141 MEQ/L (136-145); TOTAL PROTEIN 6.9 GM/DL (6.4-8.2); TRIGLYCERIDES LEVEL 319 MG/DL (<150)
== END ==
LOC: M LAB 09:46
PROVIDERS: ATTEND Family Medicine
DX: E11.9 Type 2 diabetes mellitus without complications (principal)

== ENCOUNTER → 2021-01-10 | Outpatient (REF) | payer MEDICARE ==
[2021-01-10 16:37] LABS: FERRITIN 38 NG/ML (8-252); IRON (FE) 47 UG/DL (50-170); TOTAL IRON BINDING CAPACITY 335 UG/DL (250-450); TOTAL PROTEIN 7.5 GM/DL (6.4-8.2)
[2021-01-10 16:43] LABS: FOLATE 23.2 NG/ML (>5.4); VITAMIN B12 LEVEL > 2000 PG/ML (247-911)
[2021-01-13 09:39] LABS: ALBUMIN 3.86 GM/DL (3.29-5.55); ALBUMIN % 51.5 % (55.8-66.1); ALPHA-1-GLOBULIN % 5.6 % (2.9-4.9); ALPHA-1-GLOBULINS 0.42 GM/DL (0.17-0.41); ALPHA-2-GLOBULINS 1.07 GM/DL (0.42-0.99); ALPHA-2-GLOBULINS % 14.2 % (7.1-11.8); BETA-1-GLOBULINS 0.53 GM/DL (0.28-0.60); BETA-1-GLOBULINS % 7.1 % (4.7-7.2); BETA-2-GLOBULINS 0.54 GM/DL (0.19-0.55)
[2021-01-13 09:40] LABS: BETA-2-GLOBULINS % 7.2 % (3.2-6.5); GAMMA GLOBULIN % 14.4 % (11.1-18.8); GAMMA GLOBULINS 1.08 GM/DL (0.65-1.58)
== END ==
LOC: M SFHCADAM 14:14
PROVIDERS: ATTEND Family Medicine
DX: D64.9 Anemia, unspecified (principal); K52.9 Noninfective gastroenteritis and colitis, unspecified

== ENCOUNTER 2021-03-20 10:34 | Outpatient (RCR) | payer MEDICARE | END 2021-03-24 | LOC: M PT 10:34 | PROVIDERS: ATTEND Family Medicine | DX: R29.6 Repeated falls (principal) ==

== ENCOUNTER → 2021-04-15 | Outpatient (CLI) | payer MEDICARE ==
[2021-04-15 14:15] LABS: BLOOD UREA NITROGEN 23 MG/DL (7-18); CREATININE FOR GFR 0.94 MG/DL (0.55-1.30); GLOMERULAR FILTRATION RATE > 60.0 (>45)
== END ==
LOC: M LAB 12:02
PROVIDERS: ATTEND Internal Medicine Gastroenterology
DX: D64.9 Anemia, unspecified (principal)

== ENCOUNTER 2021-04-17 10:24 | Outpatient (RCR) | payer MEDICARE | END 2021-04-21 | LOC: M PT 10:24 | PROVIDERS: ATTEND Family Medicine | DX: R29.6 Repeated falls (principal) ==

== ENCOUNTER → 2021-04-22 | Outpatient (CLI) | payer MEDICARE ==
[~2021-04-22] MED LIST changes: +GASTROGRAFIN SOLUTION 30ML (Q9963) As Ordered ONE; +ISOVUE-370 76% 100ML VIAL As Ordered ONE
== END ==
LOC: M RAD 07:51
PROVIDERS: ATTEND Internal Medicine Gastroenterology
DX: R63.4 Abnormal weight loss (principal)
CPT/HCPCS: 74177; Q9963; Q9967

== ENCOUNTER → 2021-04-23 | Outpatient (REF) | payer MEDICARE ==
[~2021-04-23] MED LIST changes: -GASTROGRAFIN SOLUTION 30ML (Q9963) As Ordered ONE; -ISOVUE-370 76% 100ML VIAL As Ordered ONE
[2021-04-23 19:26] LABS: CREATININE FOR GFR 1.06 MG/DL (0.55-1.30); GLOMERULAR FILTRATION RATE 55.7 (>45); POTASSIUM SERUM 4.1 MEQ/L (3.5-5.1)
[2021-04-23 19:27] LABS: ALBUMIN 3.3 GM/DL (3.2-5.2); BILIRUBIN,TOTAL 0.1 MG/DL (0.2-1.0); FREE T4 0.79 NG/DL (0.76-1.46); PERCENT SATURATION 11.4 % (13.2-45.0); THYROID STIMULATING HORMONE 2.79 uIU/ML (0.358-3.740); TOTAL PROTEIN 7.1 GM/DL (6.4-8.2)
[2021-04-23 19:36] LABS: HEMATOCRIT 39.3 % (36.0-47.0); HEMOGLOBIN 12.1 g/dl (12.0-15.5); MEAN CORPUSCULAR HEMOGLOBIN 26.9 pg (27.0-33.0); MEAN CORPUSCULAR HGB CONC 30.8 g/dl (32.0-36.5); MEAN CORPUSCULAR VOLUME 87.3 fl (80.0-96.0); PLATELET COUNT, AUTOMATED 310 10^3/uL (150-450); WHITE BLOOD COUNT 10.5 10^3/uL (4.0-10.0)
[2021-04-23 21:11] LABS: HEMOGLOBIN A1c 7.7 %
[2021-04-24 11:18] LABS: TOTAL 25(OH) VITAMIN D 41.3 NG/ML (30.0-100.0)
== END ==
LOC: M SFHCADAM 14:27
PROVIDERS: ATTEND Family Medicine
DX: D64.9 Anemia, unspecified (principal); E11.9 Type 2 diabetes mellitus without complications; R63.4 Abnormal weight loss; M79.7 Fibromyalgia; Z79.899 Other long term (current) drug therapy

== ENCOUNTER 2021-05-01 10:31 | Outpatient (RCR) | payer MEDICARE ==
[2021-05-08] MEDS ORDERED: CYAN500T14 PO (11:35)
[2021-05-08] MEDS ORDERED: VITA100093 PO (11:35)
[2021-05-08] MEDS ORDERED: JARD1TAB PO (11:35)
== END 2021-05-22 ==
LOC: M PT 10:31
PROVIDERS: ATTEND Family Medicine
DX: R29.6 Repeated falls (principal)

== ENCOUNTER → 2021-05-07 | Outpatient (CLI) | payer MEDICARE ==
[~2021-05-07] MED LIST changes: +CYAN500T14 PO; +JARD1TAB PO; +VITA100093 PO
== END ==
LOC: M LABSMTC 10:49
PROVIDERS: ATTEND Anesthesiology
DX: Z01.818 Encounter for other preprocedural examination (principal); Z11.52 Encounter for screening for COVID-19

== ENCOUNTER 2021-05-12 08:00 | Day surgery (SDC) | payer MEDICARE ==
[~2021-05-12] VITALS: Ht 157.5 cm; Wt 113.3 kg
[~2021-05-12 08:00] MED LIST changes: +LIDOCAINE 2% 100MG/5ML SDV (FOR ANES.) As Ordered ONE; +NS 1,000 ML IV ONE; +fentaNYL 100 MCG/2 ML INJECTION As Ordered ONE; +propofoL 500 MG/50 ML VIAL As Ordered ONE
[2021-05-12] MEDS ORDERED: propofoL 200 MG/20 ML VIAL As Ordered ONE ×2 (09:06→09:30)
[2021-05-12 09:54] VITALS: BP 169/91
== END 2021-05-12 10:10 | disposition home or self-care (01) ==
LOC: M OPP 08:00
PROVIDERS: ATTEND Internal Medicine Gastroenterology
DX: D50.9 Iron deficiency anemia, unspecified (principal); R63.4 Abnormal weight loss; D12.4 Benign neoplasm of descending colon; D13.2 Benign neoplasm of duodenum; K64.8 Other hemorrhoids; Q43.8 Other specified congenital malformations of intestine; K25.9 Gastric ulcer, unspecified as acute or chronic, without hemorrhage or perforation; I10 Essential (primary) hypertension; E11.9 Type 2 diabetes mellitus without complications; M19.90 Unspecified osteoarthritis, unspecified site; M79.7 Fibromyalgia; F41.9 Anxiety disorder, unspecified; F32.A Depression, unspecified; G43.909 Migraine, unspecified, not intractable, without status migrainosus; F43.10 Post-traumatic stress disorder, unspecified; G47.30 Sleep apnea, unspecified; G40.909 Epilepsy, unspecified, not intractable, without status epilepticus; R42 Dizziness and giddiness; Z87.891 Personal history of nicotine dependence; Z88.8 Allergy status to other drugs, medicaments and biological substances; Z91.09 Other allergy status, other than to drugs and biological substances; Z79.82 Long term (current) use of aspirin; Z79.891 Long term (current) use of opiate analgesic; Z79.899 Other long term (current) drug therapy; Z83.3 Family history of diabetes mellitus; Z82.49 Family history of ischemic heart disease and other diseases of the circulatory system; Z80.0 Family history of malignant neoplasm of digestive organs; Z82.3 Family history of stroke
CPT/HCPCS: 43239; 45385; 88305; J3010

== ENCOUNTER → 2021-07-24 | Outpatient (REF) | payer MEDICARE ==
[~2021-07-24] MED LIST changes: -LIDOCAINE 2% 100MG/5ML SDV (FOR ANES.) As Ordered ONE; -NS 1,000 ML IV ONE; -fentaNYL 100 MCG/2 ML INJECTION As Ordered ONE; -propofoL 500 MG/50 ML VIAL As Ordered ONE
[2021-07-24 16:49] LABS: HEMOGLOBIN 11.7 g/dl (12.0-15.5); MEAN CORPUSCULAR HEMOGLOBIN 27.8 pg (27.0-33.0); MEAN CORPUSCULAR HGB CONC 30.8 g/dl (32.0-36.5); MEAN CORPUSCULAR VOLUME 90.3 fl (80.0-96.0); PLATELET COUNT, AUTOMATED 346 10^3/uL (150-450); RED BLOOD COUNT 4.21 10^6/uL (4.00-5.40); WHITE BLOOD COUNT 13.3 10^3/uL (4.0-10.0)
[2021-07-24 17:05] LABS: BLOOD UREA NITROGEN 28 MG/DL (7-18); CALCIUM LEVEL 10.2 MG/DL (8.8-10.2); CARBON DIOXIDE LEVEL 27 MEQ/L (21-32); CHLORIDE LEVEL 107 MEQ/L (98-107); CREATININE FOR GFR 0.84 MG/DL (0.55-1.30); FERRITIN 72 NG/ML (8-252); GLOMERULAR FILTRATION RATE > 60.0 (>45); GLUCOSE, FASTING 141 MG/DL (70-100); POTASSIUM SERUM 4.8 MEQ/L (3.5-5.1); SODIUM LEVEL 142 MEQ/L (136-145)
[2021-07-24 17:48] LABS: HEMOGLOBIN A1c 7.4 %
[2021-07-26 20:08] LABS: TESTOSTERONE FREE (DIRECT) 0.3 pg/mL (0.0-4.2); TESTOSTERONE TOTAL FOR T&D < 3.0 ng/dL (3-67)
== END ==
LOC: M SFHCADAM 14:50
PROVIDERS: ATTEND Family Medicine
DX: D64.9 Anemia, unspecified (principal); E11.9 Type 2 diabetes mellitus without complications

== ENCOUNTER → 2021-07-31 | Outpatient (CLI) | payer MEDICARE ==
[~2021-07-31] MED LIST changes: +MULTICOLLAGEN PO; +OMEP40CA4 PO
== END ==
LOC: M WHC 10:13
PROVIDERS: ATTEND Obstetrics & Gynecology
DX: Z12.31 Encounter for screening mammogram for malignant neoplasm of breast (principal)

== ENCOUNTER → 2021-08-10 | Outpatient (CLI) | payer MEDICARE | LOC: M LABSMTC 12:04 | PROVIDERS: ATTEND Anesthesiology | DX: Z01.812 Encounter for preprocedural laboratory examination (principal) ==

== ENCOUNTER → 2021-08-13 | Outpatient (CLI) | payer MEDICARE | LOC: M WHC 08:30 | PROVIDERS: ATTEND Obstetrics & Gynecology | DX: R92.8 Other abnormal and inconclusive findings on diagnostic imaging of breast (principal) | CPT/HCPCS: 77065; G0279 ==

== ENCOUNTER 2021-08-14 11:21 | Day surgery (SDC) | payer MEDICARE ==
[~2021-08-14] VITALS: Ht 157.5 cm; Wt 114.0 kg
[~2021-08-14 11:21] MED LIST changes: +NS 1,000 ML IV ONE
[2021-08-14] MEDS ORDERED: propofoL 500 MG/50 ML VIAL As Ordered ONE (13:12)
[2021-08-14] MEDS ORDERED: GLYCOPYRROLATE INJ 0.2 MG/ML 2 ML VIAL As Ordered ONE (13:18)
[2021-08-14] MEDS ORDERED: propofoL 200 MG/20 ML VIAL As Ordered ONE (13:24)
[2021-08-14 13:50] VITALS: BP 176/89
== END 2021-08-14 14:07 | disposition home or self-care (01) ==
LOC: M OPP 11:21
PROVIDERS: ATTEND Internal Medicine Gastroenterology
DX: K25.7 Chronic gastric ulcer without hemorrhage or perforation (principal); K31.89 Other diseases of stomach and duodenum; Z80.0 Family history of malignant neoplasm of digestive organs; K57.32 Diverticulitis of large intestine without perforation or abscess without bleeding; M79.7 Fibromyalgia; G40.509 Epileptic seizures related to external causes, not intractable, without status epilepticus; Z79.82 Long term (current) use of aspirin; Z79.84 Long term (current) use of oral hypoglycemic drugs; Z79.891 Long term (current) use of opiate analgesic; Z79.899 Other long term (current) drug therapy; Z88.8 Allergy status to other drugs, medicaments and biological substances; Z91.048 Other nonmedicinal substance allergy status

== ENCOUNTER → 2021-09-01 | Outpatient (CLI) | payer MEDICARE ==
[~2021-09-01] MED LIST changes: -NS 1,000 ML IV ONE
== END ==
LOC: M PLALAB 15:41
PROVIDERS: ATTEND Surgery
DX: Z13.9 Encounter for screening, unspecified (principal); Z80.0 Family history of malignant neoplasm of digestive organs

== ENCOUNTER → 2021-09-03 | Outpatient (CLI) | payer MEDICARE ==
[~2021-09-03] MED LIST changes: +Medical Marijuana
[2021-09-03 16:36] VITALS: BP 150/96
== END ==
LOC: M WHCPRO 14:29
PROVIDERS: ATTEND Surgery
DX: D24.1 Benign neoplasm of right breast (principal); R92.8 Other abnormal and inconclusive findings on diagnostic imaging of breast

== ENCOUNTER → 2021-09-03 | Outpatient (CLI) | payer MEDICARE | LOC: M WHC 13:50 | PROVIDERS: ATTEND Surgery | DX: N60.01 Solitary cyst of right breast (principal); R23.4 Changes in skin texture ==

== ENCOUNTER → 2021-11-12 | Outpatient (CLI) | payer MEDICARE | LOC: M LABSMTC 10:47 | PROVIDERS: ATTEND Anesthesiology | DX: Z01.812 Encounter for preprocedural laboratory examination (principal); Z11.52 Encounter for screening for COVID-19 ==

== ENCOUNTER 2021-11-17 12:45 | Day surgery (SDC) | payer MEDICARE ==
[~2021-11-17] VITALS: Ht 157.5 cm; Wt 114.4 kg
[~2021-11-17 12:45] MED LIST changes: +NS 1,000 ML IV ONE
[2021-11-17] MEDS ORDERED: propofoL 200 MG/20 ML VIAL As Ordered ONE (13:47)
[2021-11-17 14:20] VITALS: BP 148/74
== END 2021-11-17 14:26 | disposition home or self-care (01) ==
LOC: M OPP 12:45
PROVIDERS: ATTEND Internal Medicine Gastroenterology
DX: K25.9 Gastric ulcer, unspecified as acute or chronic, without hemorrhage or perforation (principal); Z79.52 Long term (current) use of systemic steroids; Z88.8 Allergy status to other drugs, medicaments and biological substances; Z99.89 Dependence on other enabling machines and devices; G47.30 Sleep apnea, unspecified; Z91.048 Other nonmedicinal substance allergy status; E11.9 Type 2 diabetes mellitus without complications; E78.5 Hyperlipidemia, unspecified; G43.909 Migraine, unspecified, not intractable, without status migrainosus; F32.9 Major depressive disorder, single episode, unspecified; F41.9 Anxiety disorder, unspecified; Z80.0 Family history of malignant neoplasm of digestive organs

== ENCOUNTER → 2021-11-24 | Outpatient (CLI) | payer MEDICARE ==
[~2021-11-24] MED LIST changes: +GASTROGRAFIN SOLUTION 30ML (Q9963) As Ordered ONE; -NS 1,000 ML IV ONE
== END ==
LOC: M RAD 10:54 → M PLAIMG 10:54
PROVIDERS: ATTEND Family Medicine
DX: R10.11 Right upper quadrant pain (principal)
CPT/HCPCS: 74176; Q9963

== ENCOUNTER → 2022-02-05 | Outpatient (CLI) | payer MEDICARE ==
[~2022-02-05] MED LIST changes: -GASTROGRAFIN SOLUTION 30ML (Q9963) As Ordered ONE
[2022-02-05 11:52] LABS: BASO % 0.4 % (0.0-1.0); EOS # 0.2 10^3/uL (0.0-0.5); EOS % 2.5 % (0.0-3.0); HEMATOCRIT 37.1 % (36.0-47.0); HEMOGLOBIN 11.6 g/dl (12.0-15.5); LYMPH # 1.9 10^3/uL (1.5-5.0); LYMPH % 23.5 % (24.0-44.0); MEAN CORPUSCULAR HEMOGLOBIN 27.9 pg (27.0-33.0); MEAN CORPUSCULAR HGB CONC 31.3 g/dl (32.0-36.5); MEAN CORPUSCULAR VOLUME 89.2 fl (80.0-96.0); MONO # 0.6 10^3/uL (0.0-0.8); MONO % 7.5 % (2.0-8.0); NEUTROPHILS # 5.3 10^3/uL (1.5-8.5); NEUTROPHILS % 65.6 % (36.0-66.0); PLATELET COUNT, AUTOMATED 306 10^3/uL (150-450); RED BLOOD COUNT 4.16 10^6/uL (4.00-5.40)
[2022-02-05 13:10] LABS: FOLATE > 24.0 NG/ML (>5.4)
[2022-02-05 13:11] LABS: ALKALINE PHOSPHATASE 148 U/L (46-116); ALT/SGPT 16 U/L (7.0-40); AST/SGOT 13 U/L (<34); BILIRUBIN,TOTAL 0.2 MG/DL (0.3-1.2); BLOOD UREA NITROGEN 22 MG/DL (9-23); CALCIUM LEVEL 9.4 MG/DL (8.3-10.6); CARBON DIOXIDE LEVEL 24 MMOL/L (20-31); CHLORIDE LEVEL 106 MMOL/L (98-107); CREATININE FOR GFR 0.77 MG/DL (0.55-1.30); GLOMERULAR FILTRATION RATE > 60.0 (>45); GLUCOSE, FASTING 158 MG/DL (74-106); POTASSIUM SERUM 4.6 MMOL/L (3.5-5.1); SODIUM LEVEL 140 MMOL/L (136-145); TOTAL PROTEIN 6.9 G/DL (5.7-8.2)
[2022-02-05 13:14] LABS: TOTAL 25(OH) VITAMIN D 59.5 NG/ML (20.0-100.0)
[2022-02-05 13:34] LABS: VITAMIN B12 LEVEL > 2000 PG/ML (211-911)
== END ==
LOC: M LAB 11:24
PROVIDERS: ATTEND Psychiatry & Neurology Neurology
DX: R56.9 Unspecified convulsions (principal)

== ENCOUNTER → 2022-02-05 | Outpatient (CLI) | payer MEDICARE ==
[2022-02-05 11:53] LABS: HEMATOCRIT 36.5 % (36.0-47.0); HEMOGLOBIN 11.3 g/dl (12.0-15.5); MEAN CORPUSCULAR HEMOGLOBIN 27.3 pg (27.0-33.0); MEAN CORPUSCULAR VOLUME 88.2 fl (80.0-96.0); PLATELET COUNT, AUTOMATED 306 10^3/uL (150-450); RED BLOOD COUNT 4.14 10^6/uL (4.00-5.40); WHITE BLOOD COUNT 8.1 10^3/uL (4.0-10.0)
[2022-02-05 13:07] LABS: ALKALINE PHOSPHATASE 149 U/L (46-116); ALT/SGPT 16 U/L (7.0-40); AST/SGOT 12 U/L (<34); BILIRUBIN,TOTAL 0.2 MG/DL (0.3-1.2); BLOOD UREA NITROGEN 23 MG/DL (9-23); CALCIUM LEVEL 9.4 MG/DL (8.3-10.6); CARBON DIOXIDE LEVEL 24 MMOL/L (20-31); CHLORIDE LEVEL 106 MMOL/L (98-107); CHOLESTEROL LEVEL 236 MG/DL (<200); CHOLESTEROL RISK RATIO 3.57 (<5); CREATININE FOR GFR 0.77 MG/DL (0.55-1.30); GLOMERULAR FILTRATION RATE > 60.0 (>45); GLUCOSE, FASTING 156 MG/DL (74-106); HDL CHOLESTEROL 66.1 MG/DL (>40); LDL CHOLESTEROL 123.5 MG/DL (<100); NON-HDL-C 170 MG/DL; POTASSIUM SERUM 4.6 MMOL/L (3.5-5.1); SODIUM LEVEL 141 MMOL/L (136-145); TOTAL PROTEIN 6.9 G/DL (5.7-8.2); TRIGLYCERIDES LEVEL 232 MG/DL (<150)
[2022-02-05 13:10] LABS: THYROID STIMULATING HORMONE 2.696 uIU/ML (0.55-4.78)
[2022-02-05 13:11] LABS: FREE T4 0.96 NG/DL (0.89-1.76)
[2022-02-05 13:55] LABS: HEMOGLOBIN A1c 8.4 % (4.0-6.0)
== END ==
LOC: M LAB 11:22
PROVIDERS: ATTEND Family Medicine
DX: E78.2 Mixed hyperlipidemia (principal); R10.11 Right upper quadrant pain; E11.9 Type 2 diabetes mellitus without complications

== ENCOUNTER → 2022-03-05 | Outpatient (CLI) | payer MEDICARE | LOC: M WHC 08:58 | PROVIDERS: ATTEND Nurse Practitioner Women's Health | DX: D24.1 Benign neoplasm of right breast (principal); R92.1 Mammographic calcification found on diagnostic imaging of breast | CPT/HCPCS: 77065; G0279 ==

== ENCOUNTER → 2022-05-04 | Outpatient (CLI) | payer MEDICARE | LOC: M WHC 09:59 | PROVIDERS: ATTEND Obstetrics & Gynecology | DX: N95.0 Postmenopausal bleeding (principal) ==

== ENCOUNTER 2022-06-22 12:45 | Emergency (ER) | payer MEDICARE ==
[~2022-06-22] VITALS: Ht 157.5 cm; Wt 120.0 kg
[~2022-06-22 12:45] MED LIST changes: +FLUT50SP17; -FLUTISP
[2022-06-22] MEDS ORDERED: LIDOCAINE 5% (LIDODERM) PATCH TD ONE (14:45)
[2022-06-22] MEDS ORDERED: KETOROLAC 30 MG/ML 1ML VIAL IM ONE (14:45)
[2022-06-22] MEDS ORDERED: diazePAM 5MG TABLET PO ONE (14:45)
[2022-06-22] MEDS ORDERED: LIDO5DIS41 TD (16:05)
[2022-06-22] MEDS ORDERED: BACL10TA2 PO (16:05)
[2022-06-22 16:44] VITALS: BP 130/80
== END 2022-06-22 16:50 | disposition home or self-care (01) ==
LOC: M ED 12:45
DX: M75.31 Calcific tendinitis of right shoulder (principal); M19.011 Primary osteoarthritis, right shoulder; M50.323 Other cervical disc degeneration at C6-C7 level; I10 Essential (primary) hypertension; E11.9 Type 2 diabetes mellitus without complications; R56.9 Unspecified convulsions; R42 Dizziness and giddiness; F41.9 Anxiety disorder, unspecified; F32.A Depression, unspecified; Z98.51 Tubal ligation status; Z88.8 Allergy status to other drugs, medicaments and biological substances; Z91.048 Other nonmedicinal substance allergy status; E66.9 Obesity, unspecified; Z79.899 Other long term (current) drug therapy
CPT/HCPCS: 72040; 73030; 96372; 99284; J1885

== ENCOUNTER → 2022-07-08 | Outpatient (CLI) | payer MEDICARE ==
[~2022-07-08] MED LIST changes: +LIDO5DIS41 TD
[2022-07-08 12:10] LABS: BLOOD UREA NITROGEN 34 MG/DL (9-23); CALCIUM LEVEL 8.8 MG/DL (8.3-10.6); CARBON DIOXIDE LEVEL 26 MMOL/L (20-31); CHLORIDE LEVEL 104 MMOL/L (98-107); CREATININE FOR GFR 0.89 MG/DL (0.55-1.30); GLOMERULAR FILTRATION RATE > 60.0 (>45); GLUCOSE, FASTING 178 MG/DL (74-106); POTASSIUM SERUM 4.1 MMOL/L (3.5-5.1); SODIUM LEVEL 137 MMOL/L (136-145)
== END ==
LOC: M LAB 11:02
PROVIDERS: ATTEND Family Medicine
DX: E11.9 Type 2 diabetes mellitus without complications (principal)

== ENCOUNTER 2022-07-29 06:15 | Day surgery (SDC) | payer MEDICARE ==
[~2022-07-29] VITALS: Ht 157.5 cm; Wt 111.6 kg
[~2022-07-29 06:15] MED LIST changes: +BAYE1TAB2 PO; +METACAP2 PO; +TIZA10TA PO; +ZINC220T3 PO
[2022-07-29 06:49] LABS: HEMATOCRIT 43.2 % (36.0-47.0); HEMOGLOBIN 13.7 g/dl (12.0-15.5); MEAN CORPUSCULAR HEMOGLOBIN 27.9 pg (27.0-33.0); MEAN CORPUSCULAR HGB CONC 31.7 g/dl (32.0-36.5); PLATELET COUNT, AUTOMATED 280 10^3/uL (150-450); RED BLOOD COUNT 4.91 10^6/uL (4.00-5.40); WHITE BLOOD COUNT 8.9 10^3/uL (4.0-10.0)
[2022-07-29] MEDS ORDERED: propofoL 200 MG/20 ML VIAL As Ordered ONE (06:57)
[2022-07-29] MEDS ORDERED: ONDANSETRON 4MG 2ML VIAL As Ordered ONE (06:58)
[2022-07-29] MEDS ORDERED: KETOROLAC 60MG 2ML VIAL As Ordered ONE (06:58)
[2022-07-29] MEDS ORDERED: SUGAMMADEX SODIUM 500 MG/5 ML VIAL (BRIDION) As Ordered ONE (06:58)
[2022-07-29] MEDS ORDERED: LIDOCAINE 2% 100MG/5ML SDV (FOR ANES.) As Ordered ONE (06:58)
[2022-07-29] MEDS ORDERED: ROCURONIUM BROMIDE 50MG/5ML VIAL As Ordered ONE ×2 (06:58→08:49)
[2022-07-29] MEDS ORDERED: LR 1,000 ML IV SCH ×2 (07:05→09:35)
[2022-07-29] MEDS ORDERED: MIDAZOLAM INJ 2MG/2ML VIAL As Ordered ONE (07:09)
[2022-07-29] MEDS ORDERED: fentaNYL 250 MCG/5 ML INJECTION As Ordered ONE (07:09)
[2022-07-29] MEDS ORDERED: FLUORESCEIN 10% (100MG/ML) 5ML VIAL As Ordered ONE (07:15)
[2022-07-29 07:21] LABS: ALBUMIN 3.7 G/DL (3.2-5.2); ALKALINE PHOSPHATASE 133 U/L (46-116); ALT/SGPT 12 U/L (7.0-40); AST/SGOT < 8 U/L (<34); BILIRUBIN,TOTAL 0.4 MG/DL (0.3-1.2); BLOOD UREA NITROGEN 19 MG/DL (9-23); CALCIUM LEVEL 9.3 MG/DL (8.3-10.6); CARBON DIOXIDE LEVEL 25 MMOL/L (20-31); CHLORIDE LEVEL 106 MMOL/L (98-107); CREATININE FOR GFR 0.86 MG/DL (0.55-1.30); GLOMERULAR FILTRATION RATE > 60.0 (>45); GLUCOSE, FASTING 190 MG/DL (74-106); SODIUM LEVEL 138 MMOL/L (136-145); TOTAL PROTEIN 7.7 G/DL (5.7-8.2)
[2022-07-29] MEDS ORDERED: ceFAZolin SOD 2 GM in IV 1 EA IV ONE (07:25)
[2022-07-29] MEDS ORDERED: AZITHROMYCIN INJ 500 MG, VIAL MATE ADAPTER 1 EACH in NS 250 ML IV ONE (07:40)
[2022-07-29] MEDS ORDERED: ACETAMINOPHEN 1000MG 100ML IV BAG As Ordered ONE (07:58)
[2022-07-29] MEDS ORDERED: fentaNYL 100 MCG/2 ML INJECTION As Ordered ONE (08:33)
[2022-07-29] MEDS ORDERED: METOPROLOL 5 MG/5 ML VIAL As Ordered ONE (08:41)
[2022-07-29] MEDS ORDERED: hydrALAZINE 20MG/ML 1ML VIAL As Ordered ONE (09:05)
[2022-07-29] MEDS ORDERED: INSULIN LISPRO (NovoLOG) PER UNIT SC PRN (09:35)
[2022-07-29] MEDS ORDERED: ONDANSETRON 4MG 2ML VIAL IV PRN (09:35)
[2022-07-29] MEDS ORDERED: fentaNYL 100 MCG/2 ML INJECTION IV PRN (09:35)
[2022-07-29] MEDS: oxyCODONE 5MG TAB PO PRN ×2 (10:00→10:30)
[2022-07-29] MEDS: HYDROMORPHONE HCL 0.5 MG/ 0.5 ML SYRINGE IV PRN ×4 (10:05→10:20)
[2022-07-29 11:28] VITALS: BP 132/69; TEMP 97.8; O2SAT 99
== END 2022-07-29 12:57 | disposition home or self-care (01) ==
LOC: M SDC 06:15
PROVIDERS: ATTEND Obstetrics & Gynecology
DX: N85.02 Endometrial intraepithelial neoplasia [EIN] (principal); D25.9 Leiomyoma of uterus, unspecified; N95.0 Postmenopausal bleeding; E66.9 Obesity, unspecified; Z68.42 Body mass index [BMI] 45.0-49.9, adult; I10 Essential (primary) hypertension; E11.9 Type 2 diabetes mellitus without complications; M19.90 Unspecified osteoarthritis, unspecified site; M79.7 Fibromyalgia; M54.9 Dorsalgia, unspecified; M48.00 Spinal stenosis, site unspecified; M51.9 Unspecified thoracic, thoracolumbar and lumbosacral intervertebral disc disorder; F41.9 Anxiety disorder, unspecified; F32.A Depression, unspecified; G43.909 Migraine, unspecified, not intractable, without status migrainosus; F43.10 Post-traumatic stress disorder, unspecified; R56.9 Unspecified convulsions; Z87.891 Personal history of nicotine dependence; Z88.8 Allergy status to other drugs, medicaments and biological substances; Z91.048 Other nonmedicinal substance allergy status; Z79.899 Other long term (current) drug therapy; Z79.82 Long term (current) use of aspirin; Z79.891 Long term (current) use of opiate analgesic; Z79.84 Long term (current) use of oral hypoglycemic drugs
CPT/HCPCS: 36415; 58571; 80053; 85027; 86850; 86900; 86901; 88307; J0131; J0360; J1100; J1170; J1885; J2250; J2405; J3010

== ENCOUNTER → 2022-12-09 | Outpatient (CLI) | payer MEDICARE ==
[~2022-12-09] MED LIST changes: -GABA-283 PO; +GABA-284 PO; +MECL-209 PO; -MECL1TAB31 PO
[2022-12-09 10:51] LABS: HEMATOCRIT 40.7 % (36.0-47.0); HEMOGLOBIN 13.1 g/dl (12.0-15.5); MEAN CORPUSCULAR HEMOGLOBIN 28.4 pg (27.0-33.0); MEAN CORPUSCULAR HGB CONC 32.2 g/dl (32.0-36.5); MEAN CORPUSCULAR VOLUME 88.1 fl (80.0-96.0); PLATELET COUNT, AUTOMATED 352 10^3/uL (150-450); RED BLOOD COUNT 4.62 10^6/uL (4.00-5.40); WHITE BLOOD COUNT 11.5 10^3/uL (4.0-10.0)
[2022-12-09 11:08] LABS: HEMOGLOBIN A1c 7.6 % (4.0-6.0)
[2022-12-09 11:26] LABS: ALBUMIN 3.5 G/DL (3.2-5.2); ALKALINE PHOSPHATASE 116 U/L (46-116); ALT/SGPT 12 U/L (7.0-40); AST/SGOT 9 U/L (<34); BILIRUBIN,TOTAL 0.2 MG/DL (0.3-1.2); BLOOD UREA NITROGEN 31 MG/DL (9-23); CALCIUM LEVEL 9.2 MG/DL (8.3-10.6); CARBON DIOXIDE LEVEL 21 MMOL/L (20-31); CHLORIDE LEVEL 107 MMOL/L (98-107); CHOLESTEROL LEVEL 209 MG/DL (<200); CREATININE FOR GFR 0.67 MG/DL (0.55-1.30); FREE T4 0.85 NG/DL (0.89-1.76); GLOMERULAR FILTRATION RATE > 60.0 (>45); GLUCOSE, FASTING 126 MG/DL (74-106); POTASSIUM SERUM 4.1 MMOL/L (3.5-5.1); SODIUM LEVEL 139 MMOL/L (136-145); THYROID STIMULATING HORMONE 1.912 uIU/ML (0.55-4.78); TOTAL PROTEIN 7.3 G/DL (5.7-8.2); TRIGLYCERIDES LEVEL 233 MG/DL (<150)
[2022-12-09 18:35] LABS: CHOLESTEROL RISK RATIO 3.19 (<5); HDL CHOLESTEROL 65.5 MG/DL (>40); LDL CHOLESTEROL 96.9 MG/DL (<100); NON-HDL-C 143.5 MG/DL
== END ==
LOC: M LAB 10:02
PROVIDERS: ATTEND Family Medicine
DX: E11.9 Type 2 diabetes mellitus without complications (principal); E78.2 Mixed hyperlipidemia; F32.9 Major depressive disorder, single episode, unspecified

== ENCOUNTER → 2023-01-01 | Outpatient (CLI) | payer MEDICARE | LOC: M WHC 16:27 | PROVIDERS: ATTEND Family Medicine | DX: Z13.820 Encounter for screening for osteoporosis (principal) ==

== ENCOUNTER → 2023-03-16 | Outpatient (CLI) | payer MEDICARE ==
[~2023-03-16] MED LIST changes: -FLUT50SP17; +FLUTISP
[2023-03-16 11:44] LABS: HEMOGLOBIN A1c 7.6 % (4.0-6.0)
[2023-03-16 11:45] LABS: BLOOD UREA NITROGEN 24 MG/DL (9-23); CALCIUM LEVEL 9.1 MG/DL (8.3-10.6); CARBON DIOXIDE LEVEL 25 MMOL/L (20-31); CHLORIDE LEVEL 109 MMOL/L (98-107); CREATININE FOR GFR 0.69 MG/DL (0.55-1.30); GLOMERULAR FILTRATION RATE > 60.0 (>45); GLUCOSE, FASTING 134 MG/DL (74-106); POTASSIUM SERUM 4.5 MMOL/L (3.5-5.1); SODIUM LEVEL 141 MMOL/L (136-145)
== END ==
LOC: M LAB 09:04
PROVIDERS: ATTEND Family Medicine
DX: E11.9 Type 2 diabetes mellitus without complications (principal)

== ENCOUNTER → 2023-04-13 | Outpatient (REF) | payer MEDICARE | LOC: M SFHCADAM 14:07 | PROVIDERS: ATTEND Family Medicine | DX: E11.9 Type 2 diabetes mellitus without complications (principal); E78.2 Mixed hyperlipidemia; I11.9 Hypertensive heart disease without heart failure; G40.509 Epileptic seizures related to external causes, not intractable, without status epilepticus ==

== ENCOUNTER → 2023-06-08 | Outpatient (CLI) | payer MEDICARE ==
[2023-06-08 12:18] LABS: BASO % 0.3 % (0.0-1.0); EOS # 0.3 10^3/uL (0.0-0.5); EOS % 2.7 % (0.0-3.0); HEMATOCRIT 39.1 % (36.0-47.0); HEMOGLOBIN 12.3 g/dl (12.0-15.5); LYMPH # 2.3 10^3/uL (1.5-5.0); LYMPH % 21.9 % (24.0-44.0); MEAN CORPUSCULAR HEMOGLOBIN 28.1 pg (27.0-33.0); MEAN CORPUSCULAR HGB CONC 31.5 g/dl (32.0-36.5); MEAN CORPUSCULAR VOLUME 89.5 fl (80.0-96.0); MONO # 0.9 10^3/uL (0.0-0.8); MONO % 8.4 % (2.0-8.0); NEUTROPHILS % 66.3 % (36.0-66.0); PLATELET COUNT, AUTOMATED 307 10^3/uL (150-450); RED BLOOD COUNT 4.37 10^6/uL (4.00-5.40); WHITE BLOOD COUNT 10.6 10^3/uL (4.0-10.0)
[2023-06-08 12:38] LABS: ALBUMIN 3.3 G/DL (3.2-5.2); ALKALINE PHOSPHATASE 126 U/L (46-116); ALT/SGPT 18 U/L (7.0-40); AST/SGOT 13 U/L (<34); BILIRUBIN,TOTAL 0.2 MG/DL (0.3-1.2); BLOOD UREA NITROGEN 29 MG/DL (9-23); CALCIUM LEVEL 9.5 MG/DL (8.3-10.6); CARBON DIOXIDE LEVEL 22 MMOL/L (20-31); CHLORIDE LEVEL 106 MMOL/L (98-107); GLOMERULAR FILTRATION RATE > 60.0 (>45); GLUCOSE, FASTING 128 MG/DL (74-106); POTASSIUM SERUM 4.4 MMOL/L (3.5-5.1); SODIUM LEVEL 137 MMOL/L (136-145)
== END ==
LOC: M LAB 11:29
PROVIDERS: ATTEND Psychiatry & Neurology Neurology
DX: R56.9 Unspecified convulsions (principal); R51.9 Headache, unspecified

== ENCOUNTER 2023-06-23 06:37 | Day surgery (SDC) | payer MEDICARE ==
[~2023-06-23] VITALS: Ht 154.9 cm; Wt 106.8 kg
[~2023-06-23 06:37] MED LIST changes: +ASPI325T48 PO; +ASPI325T49 PO; +DIAZ5TAB PO; +JARD1TAB3 PO; +METO25TA4 PO; +PHENYLEPHRINE 10% OPHTH SOL 5ML OS PRN; +THERTAB52 PO; +TOPI100T9 PO
[2023-06-23] MEDS: OFLOXACIN 0.3 % (OCUFLOX) OPTH SOL 5ML OS ONE (07:00)
[2023-06-23] MEDS ORDERED: MIDAZOLAM INJ 2MG/2ML VIAL As Ordered ONE (07:03)
[2023-06-23] MEDS ORDERED: fentaNYL 100 MCG/2 ML INJECTION As Ordered ONE (07:03)
[2023-06-23] MEDS: LIDOCAINE 3.5 % 1ML OPHTH TOPICAL GEL OU ONE (07:10)
[2023-06-23] MEDS: PHENYLEPHRINE 2.5% OPHTH SOL 2ML OS SCH (07:11)
[2023-06-23] MEDS: ATROPINE SULFATE 1% OPHTH SOLN 2ML BTL OS SCH (07:11)
[2023-06-23] MEDS: TROPICAMIDE 1% OPHTH SOLN 15ML OS SCH (07:11)
[2023-06-23] MEDS: LIDOCAINE 1% SDV 5ML VIAL As Ordered ONE (08:28)
[2023-06-23] MEDS: CEFUROXIME 1MG/0.1ML INTRACAMERAL INJ As Ordered ONE (08:28)
[2023-06-23] MEDS: BSS IRRIG/VANCO(10MG)/TOBRA(5MG)/EPINEPH(1:1000-0.5CC)500ML BAG-ORONLY As Ordered ONE (08:28)
[2023-06-23 08:42] VITALS: BP 160/85; TEMP 95.5; O2SAT 98
== END 2023-06-23 09:03 | disposition home or self-care (01) ==
LOC: M SDC 06:37
PROVIDERS: ATTEND Ophthalmology
DX: H25.12 Age-related nuclear cataract, left eye (principal); E11.9 Type 2 diabetes mellitus without complications; G47.30 Sleep apnea, unspecified; I10 Essential (primary) hypertension; M79.7 Fibromyalgia; M48.00 Spinal stenosis, site unspecified; F41.9 Anxiety disorder, unspecified; F43.10 Post-traumatic stress disorder, unspecified; F32.A Depression, unspecified; R56.9 Unspecified convulsions; Z79.899 Other long term (current) drug therapy; Z79.891 Long term (current) use of opiate analgesic; Z79.82 Long term (current) use of aspirin; Z79.84 Long term (current) use of oral hypoglycemic drugs; Z91.048 Other nonmedicinal substance allergy status; Z88.8 Allergy status to other drugs, medicaments and biological substances
CPT/HCPCS: 66984; J0697; J2250; J3010; V2632

== ENCOUNTER → 2023-08-23 | Outpatient (CLI) | payer MEDICARE ==
[~2023-08-23] MED LIST changes: -PHENYLEPHRINE 10% OPHTH SOL 5ML OS PRN
[2023-08-23 09:00] LABS: HEMATOCRIT 39.3 % (36.0-47.0); HEMOGLOBIN 12.6 g/dl (12.0-15.5); MEAN CORPUSCULAR HEMOGLOBIN 27.6 pg (27.0-33.0); MEAN CORPUSCULAR HGB CONC 32.1 g/dl (32.0-36.5); PLATELET COUNT, AUTOMATED 314 10^3/uL (150-450); RED BLOOD COUNT 4.57 10^6/uL (4.00-5.40); WHITE BLOOD COUNT 11.5 10^3/uL (4.0-10.0)
[2023-08-23 09:27] LABS: ALBUMIN 3.3 G/DL (3.2-5.2); ALKALINE PHOSPHATASE 137 U/L (46-116); ALT/SGPT 14 U/L (7.0-40); AST/SGOT < 8 U/L (<34); BILIRUBIN,TOTAL 0.2 MG/DL (0.3-1.2); BLOOD UREA NITROGEN 27 MG/DL (9-23); CALCIUM LEVEL 9.6 MG/DL (8.3-10.6); CARBON DIOXIDE LEVEL 23 MMOL/L (20-31); CHLORIDE LEVEL 110 MMOL/L (98-107); CHOLESTEROL LEVEL 222 MG/DL (<200); CHOLESTEROL RISK RATIO 3.32 (<5); CREATININE FOR GFR 0.74 MG/DL (0.55-1.30); CREATININE, URINE 57.8 MG/DL; GLOMERULAR FILTRATION RATE > 60.0 (>45); GLUCOSE, FASTING 204 MG/DL (74-106); HDL CHOLESTEROL 66.7 MG/DL (>40); LDL CHOLESTEROL 115.1 MG/DL (<100); NON-HDL-C 155.3 MG/DL; POTASSIUM SERUM 4.1 MMOL/L (3.5-5.1); SODIUM LEVEL 142 MMOL/L (136-145); TOTAL PROTEIN 6.8 G/DL (5.7-8.2); TRIGLYCERIDES LEVEL 201 MG/DL (<150)
[2023-08-23 09:28] LABS: MAU/CREAT RATIO 25.9 MCG/MG (0.0-30.0)
[2023-08-23 09:39] LABS: HEMOGLOBIN A1c 7.8 % (4.0-6.0)
[2023-08-23 10:12] LABS: APPEARANCE, URINE HAZY (CLEAR); BACTERIA, URINE AUTO 1+ (NEGATIVE); BILIRUBIN, URINE AUTO NEGATIVE (NEGATIVE); BLOOD, URINE BLOOD NEGATIVE (NEGATIVE); COLOR, URINE YELLOW (YELLOW); GLUCOSE, URINE (UA) AUTO 3+ mg/dL (NEGATIVE); KETONE, URINE AUTO NEGATIVE (NEGATIVE); LEUKOCYTE ESTERASE, URINE AUTO 1+ (NEGATIVE); MUCUS, URINE SMALL (NEGATIVE); NITRITE, URINE AUTO POSITIVE (NEGATIVE); PROTEIN, URINE AUTO NEGATIVE (NEGATIVE); RBC, URINE AUTO 2 /HPF (0-3); SPECIFIC GRAVITY URINE AUTO 1.032 (1.002-1.035); SQUAMOUS EPITHELIAL CELL UR AU 5 /HPF (0-6); UROBILINOGEN, URINE AUTO 0.2 mg/dL (0.0-2.0); WBC, URINE AUTO 20 /HPF (0-3)
== END ==
LOC: M LAB 07:47
PROVIDERS: ATTEND Family Medicine
DX: R30.0 Dysuria (principal); E11.9 Type 2 diabetes mellitus without complications; I11.9 Hypertensive heart disease without heart failure

== ENCOUNTER → 2023-10-26 | Outpatient (CLI) | payer MEDICARE | LOC: M PLAIMG 09:49 | PROVIDERS: ATTEND Family Medicine | DX: Z87.19 Personal history of other diseases of the digestive system (principal); R10.9 Unspecified abdominal pain ==

== ENCOUNTER → 2024-01-01 | Outpatient (CLI) | payer MEDICARE ==
[~2024-01-01] MED LIST changes: +GABA-1172 PO; -GABA-282 PO
[2024-01-01 11:40] LABS: HEMOGLOBIN A1c 8.7 % (4.0-6.0)
[2024-01-01 11:47] LABS: BLOOD UREA NITROGEN 25 MG/DL (9-23); CALCIUM LEVEL 9.2 MG/DL (8.3-10.6); CARBON DIOXIDE LEVEL 26 MMOL/L (20-31); CHLORIDE LEVEL 109 MMOL/L (98-107); CREATININE FOR GFR 0.76 MG/DL (0.55-1.30); GLOMERULAR FILTRATION RATE > 60.0 (>45); GLUCOSE, FASTING 229 MG/DL (74-106); POTASSIUM SERUM 4.1 MMOL/L (3.5-5.1); SODIUM LEVEL 140 MMOL/L (136-145)
== END ==
LOC: M LAB 10:38
PROVIDERS: ATTEND Family Medicine
DX: E11.40 Type 2 diabetes mellitus with diabetic neuropathy, unspecified (principal)

== ENCOUNTER → 2024-06-08 | Outpatient (CLI) | payer MEDICARE ==
[2024-06-08 13:15] LABS: HEMATOCRIT 39.1 % (36.0-47.0); HEMOGLOBIN 12.5 g/dl (12.0-15.5); MEAN CORPUSCULAR VOLUME 87.7 fl (80.0-96.0); PLATELET COUNT, AUTOMATED 318 10^3/uL (150-450); RED BLOOD COUNT 4.46 10^6/uL (4.00-5.40); WHITE BLOOD COUNT 12.3 10^3/uL (4.0-10.0)
[2024-06-08 13:40] LABS: ALBUMIN 3.4 G/DL (3.2-5.2); BILIRUBIN,TOTAL 0.2 MG/DL (0.3-1.2); CALCIUM LEVEL 9.5 MG/DL (8.3-10.6); CHOLESTEROL RISK RATIO 3.3 (<5); CREATININE FOR GFR 0.9 MG/DL (0.55-1.30); GLOMERULAR FILTRATION RATE 70.5 (>45); HDL CHOLESTEROL 73.2 MG/DL (>40); LDL CHOLESTEROL 130.4 MG/DL (<100); NON-HDL-C 168.8 MG/DL; POTASSIUM SERUM 4.2 MMOL/L (3.5-5.1); TOTAL PROTEIN 7.2 G/DL (5.7-8.2)
[2024-06-08 14:12] LABS: HEMOGLOBIN A1c 8.4 % (4.0-6.0)
[2024-06-09 13:21] LABS: CREATININE, URINE 89.2 MG/DL
== END ==
LOC: M LAB 11:45
PROVIDERS: ATTEND Family Medicine
DX: I11.9 Hypertensive heart disease without heart failure (principal); G40.509 Epileptic seizures related to external causes, not intractable, without status epilepticus; E11.9 Type 2 diabetes mellitus without complications; E78.2 Mixed hyperlipidemia

== ENCOUNTER → 2024-09-15 | Outpatient (CLI) | payer MEDICARE ==
[~2024-09-15] MED LIST changes: +LIDO1ADH93 TD; -LIDO5DIS41 TD; +TOPI-257 PO; -TOPI100T9 PO
[2024-09-15 09:50] LABS: PLATELET COUNT, AUTOMATED 272 10^3/uL (150-450)
[2024-09-15 10:14] LABS: ALT/SGPT 17.0 U/L (7.0-40); AST/SGOT 12.0 U/L (<34); CALCIUM LEVEL 8.7 MG/DL (8.3-10.6); CARBON DIOXIDE LEVEL 25.0 MMOL/L (20-31); CHLORIDE LEVEL 107.0 MMOL/L (98-107); CHOLESTEROL LEVEL 173.0 MG/DL (<200); CHOLESTEROL RISK RATIO 2.51 (<5); CREATININE FOR GFR 0.82 MG/DL (0.55-1.30); GLOMERULAR FILTRATION RATE 78.8 (>45); LDL CHOLESTEROL 71.4 MG/DL (<100); NON-HDL-C 104.2 MG/DL; POTASSIUM SERUM 4.5 MMOL/L (3.5-5.1); SODIUM LEVEL 145.0 MMOL/L (136-145); TRIGLYCERIDES LEVEL 164.0 MG/DL (<150)
[2024-09-15 10:15] LABS: FREE T4 1.0 NG/DL (0.89-1.76)
[2024-09-15 10:28] LABS: ESTIMATED AVERAGE GLUCOSE 171.0 MG/DL (60-110)
== END ==
LOC: M LAB 09:15
PROVIDERS: ATTEND Family Medicine
DX: E11.40 Type 2 diabetes mellitus with diabetic neuropathy, unspecified (principal); E78.5 Hyperlipidemia, unspecified; F41.9 Anxiety disorder, unspecified; D63.8 Anemia in other chronic diseases classified elsewhere

== ENCOUNTER → 2024-10-19 | Outpatient (CLI) | payer MEDICARE | LOC: M LAB 10:13 | PROVIDERS: ATTEND Family Medicine | DX: M25.511 Pain in right shoulder (principal) ==

== ENCOUNTER → 2024-12-19 | Outpatient (CLI) | payer MEDICARE ==
[2024-12-19 11:28] LABS: ESTIMATED AVERAGE GLUCOSE 186.0 MG/DL (60-110)
[2024-12-19 11:44] LABS: ALT/SGPT 14 U/L (7.0-40); AST/SGOT 12 U/L (<34); CALCIUM LEVEL 9.7 MG/DL (8.3-10.6); CARBON DIOXIDE LEVEL 23 MMOL/L (20-31); CHLORIDE LEVEL 107 MMOL/L (98-107); CHOLESTEROL LEVEL 188 MG/DL (<200); CHOLESTEROL RISK RATIO 2.52 (<5); CREATININE FOR GFR 0.71 MG/DL (0.55-1.30); GLOMERULAR FILTRATION RATE > 90.0 (>45); LDL CHOLESTEROL 67.5 MG/DL (<100); NON-HDL-C 113.5 MG/DL; POTASSIUM SERUM 4.0 MMOL/L (3.5-5.1); SODIUM LEVEL 141 MMOL/L (136-145); TRIGLYCERIDES LEVEL 230 MG/DL (<150)
[2024-12-19 11:46] LABS: FREE T4 0.95 NG/DL (0.89-1.76)
== END ==
LOC: M LAB 10:28
PROVIDERS: ATTEND Family Medicine
DX: E78.5 Hyperlipidemia, unspecified (principal); E11.40 Type 2 diabetes mellitus with diabetic neuropathy, unspecified; D63.8 Anemia in other chronic diseases classified elsewhere

== ENCOUNTER → 2024-12-19 | Outpatient (CLI) | payer MEDICARE ==
[2024-12-19 11:34] LABS: BASO # 0.0 10^3/uL (0.0-0.2); BASO % 0.3 % (0.0-1.0); EOS # 0.3 10^3/uL (0.0-0.5); EOS % 2.7 % (0.0-3.0); LYMPH # 1.7 10^3/uL (1.5-5.0); LYMPH % 15.8 % (24.0-44.0); MONO # 0.7 10^3/uL (0.0-0.8); MONO % 6.9 % (2.0-8.0); NEUTROPHILS # 7.8 10^3/uL (1.5-8.5); NEUTROPHILS % 73.9 % (36.0-66.0); PLATELET COUNT, AUTOMATED 303 10^3/uL (150-450)
[2024-12-19 12:03] LABS: TOTAL 25(OH) VITAMIN D 30.6 NG/ML (20.0-100.0); VITAMIN B12 LEVEL 607 PG/ML (211-911)
[2024-12-19 12:06] LABS: ALT/SGPT 14 U/L (7.0-40); AST/SGOT 12 U/L (<34); CALCIUM LEVEL 9.8 MG/DL (8.3-10.6); CARBON DIOXIDE LEVEL 24 MMOL/L (20-31); CHLORIDE LEVEL 107 MMOL/L (98-107); CREATININE FOR GFR 0.73 MG/DL (0.55-1.30); GLOMERULAR FILTRATION RATE > 90.0 (>45); POTASSIUM SERUM 4.1 MMOL/L (3.5-5.1); SODIUM LEVEL 141 MMOL/L (136-145)
== END ==
LOC: M LAB 10:33
PROVIDERS: ATTEND Psychiatry & Neurology Neurology
DX: R56.9 Unspecified convulsions (principal); Z79.899 Other long term (current) drug therapy

== ENCOUNTER → 2025-01-26 | Outpatient (CLI) | payer MEDICARE ==
[~2025-01-26] MED LIST changes: -RA A PO; +[UNRECOGNIZED DRUG - CODE] PO
== END ==
LOC: M WHC 13:02
PROVIDERS: ATTEND Family Medicine
DX: R94.6 Abnormal results of thyroid function studies (principal)